=== PATIENT | female | born 1990 | race Caucasian/White ===

== ENCOUNTER 2023-03-03 21:21 | Outpatient (REF) | payer OTHER, SELFPAY ==
[2023-03-09 10:12] LABS: Age Gdln ACOG Testing Note (.); HPV Aptima Negative (Negative); IGP, Aptima HPV, rfx 16/18,45 Note (.)
== END 2023-03-03 21:22 | disposition home or self-care (01) ==
LOC: LAB 21:21
PROVIDERS: Visit Provider Obstetrics & Gynecology
DX: Z12.4 Encounter for screening for malignant neoplasm of cervix (principal)
CPT/HCPCS: 87624; G0145

== ENCOUNTER 2024-03-08 19:53 | Outpatient (REF) | payer OTHER, SELFPAY | END 2024-03-08 19:54 | disposition home or self-care (01) | LOC: LAB 19:53 | PROVIDERS: Visit Provider Obstetrics & Gynecology | DX: Z01.419 Encounter for gynecological examination (general) (routine) without abnormal findings (principal) | CPT/HCPCS: 87624; 88175 ==

== ENCOUNTER 2024-03-11 11:44 | Outpatient (OUT) | payer OTHER, SELFPAY ==
--- OUTSIDE RECORDS SUMMARY | 2024-03-11 11:46 | XMS_ITS | CCD ---
Demographics Address [address] [place] [id number] Preferred Language en Marital Status Single Spiritism Affiliation Unknown Race White Ethnic Group Not or Lati no Author Organization [facility] Care Team Providers Care Hardware Sales Assistant Name Role Phone HOUSE, DR AMAYA Admitting Unavailable HOUSE, DR AMAYA Referring Unavailable HOUSE, DR AMAYA Attending Unavailable HOUSE, DR AMAYA Consulting Unavailable HOUSE, DR AMAYA Primary Care Unavailable HOUSE, DR AMAYA Admitting Unavailable HOUSE, DR AMAYA Attending Unavailable HOUSE, DR AMAYA Primary Care Unavailable HOUSE, DR AMAYA Admitting Unavailable HOUSE, DR AMAYA Attending Unavailable HOUSE, DR AMAYA Consulting Unavailable HOUSE, DR AMAYA Primary Care Unavailable HOUSE, DR AMAYA Primary Care Unavailable KARASIK, DR KEENE Attending Unavailable KARASIK, DR KEENE Consulting Unavailable KARASIK, DR KEENE Admitting Unavailable HOUSE, DR AMAYA Primary Care Unavailable SAMSA, JASBIR Attending Unavailable SAMSA, JASBIR Admitting Unavailable SAMSA, JASBIR Consulting Unavailable NEFCY, GONZALO Consulting Unavailable MD Jerry Imchristal Attending Provider House, DO Amaya Primary Care Provider [phone] House, Jose Luis Primary Care Unavailable Asaad, Bailee Attending Unavailable Asaad, Bailee Admitting Unavailable HOUSE, JOSE LUIS Castro Primary Care Unavailable HOUSE, DO JOSE LUIS Castro Attending Unavailable HOUSE, JOSE LUIS Castro Primary Care Unavailable HOUSE, JOSE LUIS P Primary Care Unavailable HOUSE, DO AMAYA P Attending Unavailable HOUSE, JOSE LUIS Castro Primary Care Unavailable HOUSE, DO JOSE LUIS Castro Attending Unavailable HOUSE, JOSE LUIS Castro Primary Care Unavailable Niall DAVE, Neftali Serrato Attending Unavailable JJ, MANUELITO Cohen Attending Unavailable NICOLASA HDZ Attending Unavailable Medications Current Medications Medication Drug Class(es) Dates Sig (Normalized) Sig (Original) Norethindrone-Ethin Estradiol (1 source) Estrogen Start: 05-18-2023 take 0.96352392939477489 ug by mouth once daily Norethindrone-Ethi n Estradiol (Alyacen (28)) 1-35 mg-mcg tablet Active 1 TAB PO Daily May 18, 2023 12:00am Problems Active Problems Problem Classification Problem Date Documented Date Episodic/Chronic Chronic obstructive pulmonary disease and bronchiectasis (5 sources) Chronic obstructive pulmonary disease, unspecified; Translations: [COPD UNSPECIFIED] Onset: 01-05-2022 Chronic Noninfectious gastroenteritis (1 source) Noninfective gastroenteritis and colitis, unspecified; Translations: [Noninfective gastroenteritis and colitis, unspecified] Onset: 05-18-2023 Episodic Other lower respiratory disease (5 sources) Shortness of breath; Translations: [SHORTNESS OF BREATH] Onset: 01-07-2022 Episodic Other lower respiratory disease (1 source) Other forms of dyspnea; Translations: [OTHER FORMS OF DYSPNEA] Onset: 02-09-2022 Episodic Other screening for suspected conditions (not mental disorders or infectious disease) (4 sources) Abnormal findings on diagnostic imaging of other specified body structures; Translations: [ABNORML FIND DX IMG OTH BODY STRUC] Onset: 04-16-2022 Chronic Other screening for suspected conditions (not mental disorders or infectious disease) (4 sources) Encounter for screening for malignant neoplasm of cervix; Translations: [ENC SCREENING MALIG NEOPLASM CERV] Onset: 02-25-2022 Episodic Pneumonia (except that caused by tuberculosis or sexually transmitted disease) (1 source) Pneumonia, unspecified organism; Translations: [PNEUMONIA UNSPECIFIED ORGANISM] Onset: 04-20-2022 Episodic Past or Other Problems Problem Classification Problem Date Documented Da te Episodic/Chronic Other lower respiratory disease (1 source) Dyspnea, unspecified; Translations: [DYSPNEA UNSPECIFIED] Onset: 01-07-2022 Episodic Results Test Name Value Interpretation Reference Range Facility Progress Note - Nurseandrey - Progress Note - Nurse Patient presents in office for weight check to continue phentermine medication. Patient had first fill on 09/02/2023 with initial weight on 80.01kg / 176.39#. Patient returned in office on 09/30/2023 for weight check with a weight loss, 77.11 kg / 169.64# and second month of phentermine was filled on 10/02/2023. Patient did not return for the third month for phentermine/weight check until today. Patient weighed in today at 78.1kg / 171.82# - vitals were taken resulting at 132/82 -left arm , HR 89 , O2 96%. She would like to restart phentermine after full 6 months of being of medication with approval from Dr Currie. [Electronically Signed on: 03/08/2024 11:31 EDT] Yuki Sykes [Verified on: 03/08/2024 11:31 EDT] Yuki Sykes [facility] Outside Recordson 07-06-2023 Outside Records [id number] [facility] Coding Summaryon 06-29-2023 Coding Summary HTMLBase 64 UaoyqtfaDPi9aBd+PGhlYWQ +MT4SFUBaL05xoODevE4wV2 NMTElOSywgQVBQTElOSyIgb iIrDU5baUIiEZTu IC8+TR9pGHByVdqnfIVik8S 1tYJ6T31cca5jPTlzlOL9YM WdMxMecrjhr1kdvQd9WPguP mluOyBt XAEaeC15UVZ8wS92We36rDR kxGMzc0vlmGk3OzFqYZLoDU F8fNftCSnjn7BzCODjJ21fg ILju6W3 JZOucZkfdZDzXqSlqGX0oC5 gDWmldtoct8jxrlhuHqy7qa 53mTCbe5E5tNJ3U4XahfU6H GJvbGQg PldroSITtA3klxgsz7cjopa pBfEaLFHyEGw4EWn2ISQdhJ fkVhLzOG42RJV3DZPrmvPcJ 2FsLWFs qGupVoK0f6Z7Jo4HE4HRKgw bC9ULNQHXSBmupUA+PC90cj 51U5RcVeatUjn2WFAsHWD1q SK1xR5a DTSpKYzon8M4sVI9V1GcszQ psw1xe0ejFIGnSNtpL53sgR Uew8L7BGJkaQD9QMXcxUpjR iBzaG93 Oyc+QHQpuZkox7SoNcvtt3a ht2rupHj0OjavFRJazqBpwU fqASZ8k9XmOu2mSOCsfIU6z OK8fV5t UtRmWiR0XJofK421XyYbaRK yCppkH71jR0MsuVD+PHRyPj v1HKQgwSccSG2wV1TeDPKko mctbGVm tAilQQ8jNVTgkvixNOUbbM2 kBQArP9o3KyGzFsL4ENqjO5 YcLUYhdydmTd53eI2tZsVtD pG7VFba D5AdssF8COYpwCVmOWypYFH 2Y52ei9I3ILZaJFYiBNI9kC A2fQ2hgFrmgtcltBBliLdwq mVydGlj PSgrNXrtP187KEJkqClmGdX vZGluZyBEYXRlOiAgMDEvMD IvMjAyNDwvdGQ+OBZkXNK3w WxlPSAn hHWiSZozOs5kkZrgcBsvGJ3 pYQNkcdjeQGZxqW7tUMPbcC QoqEinGH8mPBHarmnjl821A iAxMHB0 UQKusGRwY5OzrS8vBwWoGTB oBPCoS6BdzRKvWZpqV163MV dcTvS8MKDivvSpQ1GvQBZim WduOiB0 c4D9Cy7On4ZkvbigA8UliXB cHnDyAoijSDo5I7AcHrcqrX I+MG59OEOqAS47JRz0GQN8a WxlPSdi OIFsJ9IcrC9vFjBnVRRcFMW kOyc+PHRhYmxlIHdpZHRoPS gyIMPmOlUqxHqxOZ4cCs2uZ GVyLWNv bXgooUOeCyCxv5brSVUbHXg wLT4ldBlqV0GifVR9LMCgk0 s6Qv11V93wH1VrwTC+PGNvb RW0iAT0 lL2vJdZzUjR7OSskN688ByD rgMVbJmdzv3wvy8xfrFw5Lo Q5RASxptIwdBzoHYD0y6XbR m68R97e IHdpZHRoPSIxNSUiIHZhbGl xfm0zvV8kPf1+DYQzpQO1rO J8mX4rNsTkSpV5THcgD236Q nRvcCIv Vhekg1cay5dowZd7GlLsTYI rizBwmMfcKMN3u1FsOu29N7 DljAfge8DdAne6fr67sGYfm 3S6fTL1 J3ReEMWoziggzHNbwGtkSJ0 vKIDitbsbGYPclV8jFGTnO7 j0VsJiZvO2HBoeN1YmjnT2X GJvbGQg IOBgdCRMdO6puscii7ytskp qJoXcNXVhGOx3MCd6OBCjsE ysYeDsVDS0CvN1BZU0kWIsg A7yvHhq hwtgeL7yRiy+YRT5xUWmsCG HQE2nZhviqCX+SASoZEM7nA ziXMbaGCCkbJ1eVGSwV1r1X iAwLjA1 LBpyD0BrjoA1AZRhuVWsFKU amJCTnG4prhwqf2itesayTe BfNQEuYMb9LFg6EGVejEepI iBsZWZ0 YsA1JUF0xXQomY9qyTojcoh dtT5vGin+HdpzqRjfXCE8GP z8T1JjRrf3ATGziPphUU3az GFkZGlu Mz3noSctdKsiZM4xMQIyeor yn708HgDlu3uyNYQejHCvJR itWJS4M69pi0B1YKFtAPAnW OV4rBG0 kF5xaGuoucqcuRLpvXdfzhU yyImcAIxyVWeaY185ITWztN ucMyYzCDk6Q0ApLtu9MYDey UrmWX0i aELdGDsgZf3qjKfodBkkQH2 pKKMvxozjh117XvEia9grQA TmkFPfQLurHCX3D96ux9P9S CMwMDAw HDV6dTT0zW1wsLibkrhakML mdDsgdmVydGljYWwtYWxpZ2 05HBAwcDnxQhPwkIe5K4YlB um5ZUOd xGzgEN5axUTgZTckVk6jfHc ciOweOA5yLENwujsyj811Vc Tqp8jbBTKxpIPcJRazKEY0Z 76mx3D7 BMYaBROtMJK5gUA1pC2ctMs nbjogbGVmdDsgdmVydGljYW zlRZsyA570WTPqzGqdPgDsn GllbnQg EDcaSQa2L0YhIlywmJL+PC9 0YSGnIB15rLGkuVJte1kyeK q0QlNtRJFyDOC4wDqtLDexk 3JkZXIt S23scKRzm3B9IFCzyAypuKB uGgJuyTL0qX2xLDxtvchnf2 aujlyvCkqqi9waxu01jT62Q 29sIHdp ZHRoPSIzMCUiIHZhbGlnbj0 ttA7lBf3+CRDxhFP6pUQ8aO 7wIZHvHvT1HRjwB510PjThb CIvPjxj p1wdb1adnMj5HaF3UAIbvjC wvBteDUC8n4EuUm29V73wON dpZHRoPSIyMCUiIHZhbGlnb t8raV6l Ii8+EGPqeRU7fTM3cZ6hMuC xWyQ0MKabI474UmNcuEDoZn goY58gX8XdyIZ+SQMfWfw2W CBzdHls WA6qqWWtHYofSm1iTJG7ZvB wWhLbOKibE9ZwHLQvsxrann ozcKT9OJTmJFLovU01Kk0yw DogMTBw gHWVcZ4sboirr4rjpzwjIgZ xIKKiEDm9MXw8TLYptToiKd AbYSL8UwX0KUZ6lARyaR3aq Glnbjog eI5tI2AoBSSlnqbsHp84oF8 aAhWtTaP4EJasAnu+SFVHSE VTLCBLQVlMRUlHSCBNQVJJR TwvdGQ+ RYTdWKG7iNqpDYlaXAWyhM7 sGINpE0m0EqNkDwZ1FQjhU8 JzZWJhkfyhKc35oO5wHfMhY aV3WTnz Z1DpaeP7GTQnuXMaEGigJML 0E92ce6W4RLSaMSCsVXZ6eW F2uT8ohBgcznojwVJjkDlvu mVydGlj FJjyDCwkE526PJXzyBelYiW 1HaD4BuV0QMA2B8KbQjl2EQ LhmRirZT2owIBaFKyxOa4ym WdodDog ST4rEWRcqspjNZFixH2pOKF ppSGtxKffWG1lGZAmugkpq4 54PcTfINL2KETeqMZlI6Hpn G5rKnJh RLQhTQWsU8GwqNNzJKprX11 2POojSnV6OAHuzcUnF1EfWU MmrBniMhR6w7J1Kj9lFEZWJ WFyczwv dGQ+MVNcEUY7vSojFOoiCGN loV6rTYUtJ2l6TxIaSzT4ST fjI4YmIMVzcsesEv68dU9aF iAwLjA1 UQqbH8HwqrF1YJTngSBzCAu eMYO1E55tm1T1SXOiOXWdWP L1cWU3rK2evNlcrtprwMWuo DsgdmVy oWgeJQdxKUqrK460KSGawSb nPkZFTUFMRTwvdGQ+PHRkIH S2bZuqCYuiXFLwwN4lSVJeO 8n6FhPs HrS1EYrmN9PzWSAqjuzqDg5 5iG1mKrRoStP8GGemH0Nijz T7LYBxbPHdWUijAGR0L88zw 6X7ZHHx GSTyTSY2pVS2lN7dvCqjoou gbGVmdDsgdmVydGljYWwtYW luP326RFNhqGoyBo7CMZ72T N01L2Ax PjwvdGFibGU+PHRhYmxlIHd pZHRoPScxMDAlJyBzdHlsZT 6jNb5nQSBkHLJolTzcrWOsR sXip2xv SRCjOYyoKK0ipXctG7HmeYV 2ERDuq9r5Yz75R68lT9UgyH A+OJYwiIJ5lNT6aV2mArXmG jD8OFmm O245LxXrjYCrLedmv4vcf9v auTh2AjNvIQQgbfRfsBffAB U7o3RkEs18S40yEOeiHFIrP SIyMCUi CCDpdYzmbp7xvS3zAn9+PGN ehGG4hDU7dR8vHrZtXaN0OT grZ275JyVlxJXmCjeqV62sN 3JvdXA+ LBPgQya0UZUclWhhIF4lvJW eXYprJv5pIET3SwStRnKmNE axP6DvJHTxzvlcbgjzeDV7E DAuMDUw hT25Li7wmAmlKl4aZQAbZSO 5ADMdjWKjG2WazB1tMmZjBD ZeIVZrO4IlhPSbEAkhW302J GxlZnQ7 HFEpsuBxF4MjTXNirLaxPbB 3u4G2Rh4FnFkogGZiLJ2oSy MsTXu5X6IyAna7KUKucFaoV Q2spXNc WDbhHw1koCbbcFopXH2gTUD jwaina707ZwRkq0apFQRclZ OfMYkhFBF6Q81tj5X4BXHpE DAwMDA7 dEK1uI4kpVhxywejvFGknZj jnfEaaDnpDYncNPhfD610DR EkhKakJfJOTsc5M9CqGrh7A CBzdHls IF3cxXCuFIbmUd3jfHproAm yCX6rYBPvkhvjc073CaWtm5 slHPQodLMaJFuzZAF9P15qj 5C0VMPg RVWmXXC8vIC8iR4fhDjpjkm gbGVmdDsgdmVydGljYWwtYW qdS281IWJpjUysVw2BAtm1M 5XaKfa5 MACdwXwoKC2hfWPfFWaaIc6 tgAmuqFxrBS4oMIXswnqqs9 12OiKcr8dpEZJspUSdCDpgA YE4Z88g a9O1IJJmNEOhIQS4aML7fY4 hbGlnbjogbGVmdDsgdmVydG jeLIzqIXfcU129UBPbgBbtL lBheWVy OjwvdGQ+XF64fk46U2NmBtq gUbc7GQZoVBF6rGN5wS9iZL UfEQigv8K8nZE1Y4LvoiHqf g7yp5nk YXB (more content not included)... [facility] HCG ( test) IAaguila d Ql (U)Ordered By: Bailee Edwards on 05-18-2023 HCG ( test) Ql (U) Negative [facility] HCG,Urineon 05-18-2023 Beta HCG ( test) Ql (U) Negative Normal [facility] Comment on above: Result Comment: PERF ORMED BY: [place] [address] PATHOLOGIST DATA RECOVERY PLANNER MANJEET NOLAN M.D. Performed By: #### U HCG #### [address] Deni 05-18-2023 L --- Specimen: [id number] Received: 05/18/23 Status: BETTY Jefe Num: [id number] Spec Type: Surgical Subm Dr: Bailee Edwards MD Tissues: A Colon Biopsy (SIGMOID POLYP) Procedures: HE/David Gross/Tish L4 Age/ Patient Sex Location Account Attending Physician Mauro Damon 32/ [id number] Bailee Edwards MD SPEC NUM: [id number] RECD: 05/18/23 STATUS: BETTY JEFE NUM: [id number] SHY: 05/18/23- SUBM DR: Bailee Edwards MD ENTERED: 05/18/23 YOHAN PRADO: SPEC TYPE: Surgical DEPT: S ORDERED: HE/2, Gross/Micro L4 ORDERED: /, Gross/Micro L4 Pathological Diagnosis Sigmoid polyp biopsy: - Serrated hyperplastic polyp in all fragments with minor features of sessile serrated polyp also suggested Clinical Information History of colitis Gross Description The specimen is received in formalin labeled with the patient's name designated sigmoid polyp and consists of three red-pink, polypoid, soft tissue fragments aggregating to 0.8 x 0.6 x 0.3 cm which are submitted in toto in a single cassette labeled A1. Microscopic Description Microscopic examinations are performed CPT Codes 69727 Specimen: [id number] Received: 05/18/23 Status: BETTY [place] Num: [id number] Spec Type: Surgical Subm Dr: Bailee Edwards MD Tissues: A Colon Biopsy (SIGMOID POLYP) Procedures: AUDREY/David, Gross/Micro L4 Patient: Mauro Damon [id number] (Continued) Signed (signature on file) Chin-Ras John MD 05/20/23 [address] [facility] Patient Provided Health Data on 03-25-2023 Patient Provided Health Data [id number] [facility] Coding Summaryon 03-20-2023 Coding Summary HTMLBase 64 NeigcpuhNTq0pWg+PGhlYWQ +RF0JUECgK23ylNPoqO7xH4 NMTElOSywgQVBQTElOSyIgb kByLS9klEAfJGWb IC8+LF7dXDCaTdxliOVsg1C 4nAE6Z17brh5oMWchxUE0YC FgZdXnwoaos7rhdFo1ZQqnG mluOyBt SBYnhD83EOY4mB78Ir81cFJ pnITct7pysOy3CyEqCAPbMK S6pFwsHIggj5SlGJIyI22es ZGnv1U4 WFUbpEgckUOoMnUqgBB1oQ2 aXLdgpewyz9naudazHfe5ks 45aEIqr9F4uOK7A2WkzrN0U GJvbGQg WucntUSGyH8wwlwej1emjdj sRcQaPZQuTDz6YZk7YOTzgL syNlHwMQ30GFF3RHBebnUsY 2FsLWFs yYomJsJ6k1C7Sf7SJ0KRLhy qU9ZVFSTSCArthAY+PC90cj 19K9UjQlvqTob1IIWrQQM9x PA2sB0j IGKfHCriq7R6gOV6I7UzxsA yke7hf1hrMJUnZUzdD46lhE Bhu4X3JNOroPA9GLMdjNbbL iBzaG93 Oyc+XGFxcOlwy7TxTrubn1j qy8sedWv8SjdfYSCamuGquD aiSOP7r8KtEv8iNSLisZE5i AN6mG5f RoXjRrJ4VKjpQ286VdGwqPX sWzghF45xZ2NekYU+PHRyPj t1IXLffVfzGA3vF7LbRSHwy mctbGVm iDnySC2wKZAozowcORXatD8 hZHJyT2h7TjQoKnP9PYgmZ4 RwWXHphgxqGs18vN1jCmDqT vB8KYou T4ZijlP4LYEosMKkQEhrKJZ 9N69dp0L6ZEVpLMNeOEW4fP O9pQ8whXdylwnlsTIhfDrku mVydGlj ISksMKnfJ291RLJrkZlqKzC vZGluZyBEYXRlOiAgMDkvMj MvMjAyMzwvdGQ+HLAdRQK3s WxlPSAn tUZvOKlyJe1jlByruApgPP6 kGZPsnspyWEDraR7eYQWfcL QrxJqbOJ9cMMNqsmzjg407Q iAxMHB0 OOXpcWCyU8UwoD8kCeFrMPI iCOSdV0CssSWkOTmnW517RJ yqIbU8ETXlaiHsO4BaYIDhi WduOiB0 o9Z3Oh6Pu3BcdkhhU8AgmIS bPcMxRblqDMh6M3JjWdcirH I+AA60HINzHP80KUn6VXK5f WxlPSdi ENIhX0XjpI9aNnFvCIGbSZQ kOyc+PHRhYmxlIHdpZHRoPS lyOIXiLyJhuHgaJU9wTx1nW GVyLWNv pQyqwVQsRsHet5bgCZNbOMa dGH3kbLotD4VxgCR3IHLcz4 o7Eu16I30rB4HxnCU+PGNvb WA5kSV1 iO0eByQaUvY3CYozZ681YvV txIAiChzoh8dve2jsmYj7Pn N8NEVealJqgEteJIZ9x2MnC p33Y10s IHdpZHRoPSIxNSUiIHZhbGl brk5gkT4rCt0+EDOfmOR4bT F0iG5hZfWuDwV6YCwvI110Q nRvcCIv Wftdy0jbi1npuGr8BmDqVGP sclNubKvlABN7y2UnCj27Z3 RqyMvvo2YxTww4le25yXKep 1V4cON4 X6IgUZEhdffewKMkrIgsUY5 yVGTfdvkgAQWipX2yFHVuB1 x9BkKxHmU8ELzyT0QlkuD4J GJvbGQg VDSoiNCEvC4oilpez2sdvfo vXiFgOLLePSa8JSt7SEQwwW nvTbWcGMV9ViI6AQX1lRHch L0wtMlz lpmizB1uQck+DZA0gZDsbRH WEU0oEolkyFJ+KXKnCUO9nB zsRMysICVgsH2sYEGyS9e8Q iAwLjA1 SSmfD6WqkwD9LIZpjOUgYIM ceDRDyC7czreri1leeuwkDm BlWJYbEVv1GXp6WEYnjYagO iBsZWZ0 ZrE9EVU3bAHhfD4wqFwemjm isS7dIix+LfzfeRumBNS6MB x2Z7ZhIjh5NNBxwYfeJA5yy GFkZGlu Cg6ffZtjiOguLD8pXAOfvro fv655UdIzv5prBTBxfLIoAI fbAPY5J56vg5Q2UXAaSEImR ZC9uRS1 eZ0yhGtkkgwbiTFlrLftypP cpGreEHizBLrgZ303UGQjrD yzOpSiNPz7D6AfTkk8UKNsk KxvDG8s xUIzVWscBj6snPoacGdlDR8 mVBHmholla832ZkUoi7udDJ QhsMBeMKevARM1R14zf6H5K CMwMDAw CWZ6pMW1uM6bbYaugxqorWL mdDsgdmVydGljYWwtYWxpZ2 22JZUnwShiBsViiPx9I1XxQ gz6FFZg bXtfZK9juUPmWMvgAn6xeRm nzIezKI7aYPTzogorc806Tz Gha4cfOMHmiJBvSGlyIUJ4O 18na0R8 UYTePSCeFEV4pKK6wX8ydDh nbjogbGVmdDsgdmVydGljYW jqXOalA094HPJikRagDsNaw GllbnQg VQclPMd6K1OaGbstmKB+PC9 3IFXcAQ04cIAbsDQfi6fihG l5VgMgWATkVNF2rLvhCFtia 3JkZXIt J07znRVnl4J8NWPouEzjgHY eUiFteXR6lT7oMQhuqdfqo8 liltshOksrk8qjjr61cM13R 29sIHdp ZHRoPSIzMCUiIHZhbGlnbj0 oaR7hHz6+XEUswCW6zVD6sW 5eUNYsYtU0BZgwS381FkPrg CIvPjxj r7srk3bypOq4QuQ5ZHExipM llCdcQCR1t8AcGe24S31dDR dpZHRoPSIyMCUiIHZhbGlnb d1scW7p Ii8+DZAqmKG1hZV1hS2eDiR dZcC0LFbkR476EtHczHGsZm fuV57sZ1JawOY+UZPkKqw8V CBzdHls BJ3rxFGhQCnlTk4oFAT0YzV dQlAgAPaeD7TdTWYbfcbfpx udeMH8FQZaCNQcrN77Vo7lc DogMTBw pDLHbD4pmtmag2siokttRwK qPNSvWMb6GBu6AQGnoNojCj CdXQE5JfV8AQN0rNSvpJ2df Glnbjog iL1vV1AfYUXpwcprJj87kH1 tMhYsQgU2CBkrGhr+SFVHSE VTLCBLQVlMRUlHSCBNQVJJR TwvdGQ+ TJWdUND1rJxuFBcjWNUfkM4 pVVVcR4v1YxGwTnV8FNttQ7 ApWVDkfsvvEc51oH2fRiRxK gV9HGon P8PiknV6PHOdmTFkEHutAWW 4N56bw4C9UUFqNODvFSY8xT B7rX9jmXyqgsokhQLqlWrug mVydGlj KPhlBHkcD979LXWrhCkmWhD 9JoP1JmR8TZC6D1ObLwt3XB SzjBreOQ0zwLAtNLxiZx5bp WdodDog IC5fBFGywkhzFMFqaW2dRAH fwEKsuCrxAR2qDFWdtotxm0 90LrElBNV9XQRmpXYqB9Nox X6pOxPx AHToHPQsN2TeaBDpDNpoR76 8LKdhIcX6BDPordAfU8JnRN VzqBbpFuH5z9A2Fs3bWSYAE WFyczwv dGQ+PXHeXPN8zPulOEvoQTN vaH9iLXAdJ6v6EwLzHzY9FU mxE1LgGHOcbkwvCk32aR9oL iAwLjA1 KMqvT2GhucX9KOOyjBDaYAq gGQL3G56wk0J3SDWvWRQnCR Y3uFU8eJ7dfXntuidovQHny DsgdmVy eMuoVCmiRNvpR912UHFrfEy nPkZFTUFMRTwvdGQ+PHRkIH E4jXdkUOwtUBMafL4vTVAkD 7q1OpGz FiD2LPjgW7HbVYQadxgfJr3 3bB7jGdTsXgV1AXzfC5Fflj A4FGVnqCUiQRybJIA9U18cg 1A3OHRd IRQlSMK4xGD3dJ1dnIjfrte gbGVmdDsgdmVydGljYWwtYW rsB317LFZklOyrJlLjKAShU U2kmYle dGQ+KR99vz80J5IsDtclLmc 5FZPcVVK7gXH7pW8bHLOxNE gdg0V8bDJ5L8UpfqTcri0yy 2xsYXBz ASdkU26ilFPiu5D6HDLkqYN 4SZYsvYhwJzYzdH11Esd+PG XxzUvgg4VwNxpcf8yds0ahn Io8GqZh KUMnsgEwhCzxHZS8q5XwUm1 2Y19cSKpbXBUwQJSxWZUnHR ZtjPecvg8flU8xEj0+PGNvb UA8wVZ9 eL3hUuDhNmS7UClgE774VkH loMDlXpfud0sjf3cziSe6Uz LzFUEcfiZkmBgtMEJ7m9ViA v70W2Vc gGlnl9WwEht6tu68bTNsx3G 0iLQ5C0KcQAHktyiejONfrQ azVD6hNQWxqtfiXMIftA0hJ SWqE1k1 AcNnXtO7LWwiK3NzbnH2IIA jiSUqLIRzbXKDtQ2qmkaeq6 nohhayZwEeJALbIUx3BUn3Y WFsaWdu OrLdWTF1KgW2DBW3zJHdlJ1 anLyeplkdiB6nGfr+UGh5c2 vprKZkKG0haQE8AK54NG50i BJuf0P3 fMQ4S4PuSLVcymshgguslIL 4SLInCIWetN97Kg9lwUlrSe 2hTYReJUK7FITeyPJdG2Mlp P3gBcPr OGDpRLPaM2AuyVNdIMbhO48 8DYutGbI7KEZomyRuX0DtFD YzaVvoDeH8c0E0Jn7TSD57Z R86KB94 qVDtp7A5uHI1X5WqDIAlkvp rctibjHK0LSJcKGHjhQ96Sa 7kiJadUe6tTCIkGUA2DYIri WWoU1Kq eA8nFyZcJIFdKVGlH2IawYB sWKscP973WVrwFwW8TWAspe DpO3QvLTHqcMofJsE1o9C8X n6ENp16 UH70UK91xTByh3K5tNN7Q0D sNURzpzpmzgzzkBV3VZXgIH GtlJ57Kd0ijYglCk7nENSnX LA0LJKj gDFgJ6HafL1fNlTeLRVhUVY gN7VbjGAaDDvdM712HVhnFj C9MTYfixSgJ0YrXFJufUrrW aA0g8G9 Xx1EAUygdzb9B5ZtOfuwrQW +BU84QMLkZL13yMKjyTRfd4 ijgFt3OcKqPKIsRJE9rJhyW Wwxm9Dz ZXI (more content not included)... [facility] Coding Summary HTMLBase 64 PtbidxmrSRw9tZt+PGhlYWQ +RR2MUQCnV00dbLGbwQ9fQ9 NMTElOSywgQVBQTElOSyIgb zDcKA2rhJUjBGDw IC8+TN2wSCBvPuqqlWNad3T 2uQG3M83kqt7vDIakqXP1AE AqSiSaruvlx9mbxIm3TPgbR mluOyBt XKDunK42KAD8sY75Na51fEK evCOxv9shmDi4BsPtASTvNH N5fSgfOMroy2XeDFAjT30rb NWqi5U9 PGWnyJrzjQYsXyBagYR4yM8 uTCvcqwaau8zhapibMnt2za 68gPIot2B0aTF6S6DgmbV0N GJvbGQg QhucdJIOiY0lodxoo7cgqdm nDoWrJBRzPNr0UMp3OEAkrE qcZnRuWZ48HSD3WKCfwgBgM 2FsLWFs wFbcSkQ1n7R4Vw7OS6LSCek jD6VRNBSMRFdyzCX+PC90cj 38R3HhXzzyBwu9VZVeKYW5b TA2vT6t KHPoLDpyl4S5qCK2N3LcddI jgr2qf9ekVXDnHEowG58xvT Dyn3Y0DBOjgAU7UEKhfZbvR iBzaG93 Oyc+BPThyEeku2LjXqmsj6x jd5gfxCi4AukxXWCjufNmlA suGGM1v8FlEl6fJQBznJE5k TI5qS8t XbGrRgA4DIzxT977AfTjtTP hYftoA79qA9PnzIB+PHRyPj l0TRGozIovMG3fH0VfCQNxh mctbGVm pCjvXM7aWTIwcmoxRZUpnN7 zECZoU2t5RwUzUdF4MMsqB8 PqNGKuhbhlNa62aC1hBbBoZ qY7IJyz F7TmdhZ9PPNjwAYtXKmoBEC 9X98wl4S3GHRfDRMvWOC0mK D4wN7apAhdkwjvrGKroTufs mVydGlj FLwfHLclF621CQSjlXndIeL vZGluZyBEYXRlOiAgMDkvMj MvMjAyMzwvdGQ+IRDcBWO6e WxlPSAn jSYtZDvaSb4llQmqzNomIU3 oTPSezaxlBLSxaJ5uETMdbT VwsPvfEC4fZMDyxwvrt376X iAxMHB0 SHIgsCHyG0MgtX2gFnZlJCA rBCZlR2AarCNfBBniY740AI blQqL1JBPlzmElV1EgCQWgf WduOiB0 x6E2Yj9Dp1IsiebxO4KdkDI yViPcCmdfNUd3M3RlGyfhxB I+DX80AMVgFC29EHp8RJC8g WxlPSdi NDFxJ2KcuU4vAeIbWSOaBTU kOyc+PHRhYmxlIHdpZHRoPS ivIOUqUnMyqZsrYV5sUv5oV GVyLWNv yVstmVPaIaLol1oeYJLqEGk tQZ2jbMbaY5XxqYE8WHOdb0 m0Qi66Q22uM1VliQQ+PGNvb NW5fTU9 yI4wTbShDsT3PPadD705OjU gxBBdNmrwl1yao9pvuEh4Ac Y9ZGKzdjUiwJvhJXL1u5FeP f68Y80u IHdpZHRoPSIxNSUiIHZhbGl bds4quS9lPf2+KZZksHI6lH D0lH0oExYePxJ7WMcxC462P nRvcCIv Xxgyq6krf5xnpUr2JkEyAVQ vjzIuhYovQFU3o3AnWy10O4 WxaPexr3AxQwh8vo10pZLzy 5R1fPN0 J2UyBFAegkaycFEcjDevDD4 qOVLpfrjaGKDmrI7fRDXmD0 o8FiDzYhH6BInkN6UqywK6U GJvbGQg FUWfcJSDtD7gbtvxn8elzcr wArUvQQMuWYy6ZNd7XDCyjY ptQeFkCIL0QjT7FIG6wRHle Q9ymHhb vyevfA4gXwx+XOE9vAOcrMD JOE9gUnjemBR+SHQyWOT6nR muUZerPDUarI5jJCWiV0a2T iAwLjA1 DLmcB0TwmgI2HZRqkGTfBMH suRNHeN6hahith3mcznpwQt WzNWVpFVg4UQi7XTFvxNneI iBsZWZ0 CuT4OPG3vJPrfE9ulTcamkd ocS0zUlx+CulzxEfjFGN4YL p0Z9RjJmw6MYCmzHbaQW8ko GFkZGlu Rz7xvMklbKizVJ3rWZHitob uy295RzUnf7riGSVdaNSkBR rzSDT9D33ul8R2THHvMPGdX OD6dFF7 oZ2ztNkhqygshIZivFtmtyY btHctQUamKNszU123NDTomC gaTsTuOXt0P6QzFob5PEUko JpwNQ4f aJJvCItiQv7uiWjuyEojOB8 fXOAijfbpm994RoBze3kcMO BrtAAdXSlqQWV9V97bb3B7X CMwMDAw OEQ0oAV0zN1itLtqbdzxvJA mdDsgdmVydGljYWwtYWxpZ2 31USNygMueJoIuvQt2Z5YhF qp8JZGz wTerNW0waDHuIOmaFc1wqWp wrQavMK6zYHTfssgut922Vf Lvk3gyRKRrwTHxRBudNPI1B 84oi0L5 UGOdAHLrVFH8uKJ4wP7tpKf nbjogbGVmdDsgdmVydGljYW wkKOrtO571OUXroGcwKxYea GllbnQg DCdyEPm0A8ZeDqnjdDK+PC9 5YIEbLN92pLFgxIOfj2lukM t2NiMhLIWqQZX0aKyxWMttt 3JkZXIt I08yqARnh0D5LQXywZdfjZV zNnSovVE5nL6uNInyiqdbs2 owqgojSvpro3sxjl81qN98Z 29sIHdp ZHRoPSIzMCUiIHZhbGlnbj0 kdE5bHf5+NIPwmWT8fUC7oK 6jOQDzNzU7KYkuB950RmXyn CIvPjxj k4dcb9wlfTc5DmU6HLItynA lyJhzDOJ1x4NuDu10T03wJG dpZHRoPSIyMCUiIHZhbGlnb k3vzZ2b Ii8+MRPzeUW9oGO6pX3eDiP dMtF0OTmqY132EaCbsYTtBe hyM44iT0NurZA+EPZkUwb5D CBzdHls ZX5hxOTqBCmjIg3lEIX2NnL hRxCwZWuiZ1QjADKdouxlva yjlII0YJCoVJFkeU37Oy1ub DogMTBw hRZNnK4ysqpbc4waonlsRqW lDYCoHMp1KTv9NTAvlKkiWl MnUYV1InS1BEM4yYJkoQ9ja Glnbjog rB2aI2NdVQIpfqsxCo76fW7 sIuWgNiF2VXfaBhn+SFVHSE VTLCBLQVlMRUlHSCBNQVJJR TwvdGQ+ MIWlPLK8oQepMDczLDSzpV2 kSUUuF9h4UsGjYaP7PXvxM0 WcOOUkqowpCx07qM6rPpBiO fD1XIeg J8HdehY4HADxmAMfFQqaFGE 7K01sv1G9LJDwJEBlDWI3yK M2zO5svYqxfmcdzSEklTfpz mVydGlj OBcgIUsyJ711UXKpwJyhVoT 9XdS8SwL1NBQ9K9SrLgy0BQ CilBrqDJ0ohJZtLHkySc7jm WdodDog QN5pQSUvovqhLIKsnB9kHJS vcWMdeWwlXF3wBDQyuxltg0 82OnDhVYE6XVVizKCvH4Msi E7pQnOb DAEtSLYoD3LhpGUiNWbuL58 7ZYmxCfH0GGObwaLoX6UiWZ EgxPahGgM1x0T7Km1dHTMCR WFyczwv dGQ+OSCeBRW3bScnDIrtBPN tgR9pFCMiF3z0UyTgPmZ6LN jhK5FsQKWinwleAj82wC9mM iAwLjA1 NSimE6WasiA2XDIfbKSlNTr oTAK6T96ag0T8YBLxKNTuLU W1vMJ1bR9bvBionudomPZkr DsgdmVy kEgmYDiiCTkkC670LGElhTd nPkZFTUFMRTwvdGQ+PHRkIH Z9kYuyONemFQXphV6kRUTqZ 3u8WqWc DzY5OGfpZ5XzUVQawhywDc4 6jL1rVpOtKlT0JIylR0Jetu J1XDWggLPpXSyuNIV3X65qn 2Q5BKWl HFNhLTT6bIX8sU9mxFhdirp gbGVmdDsgdmVydGljYWwtYW tcP296BTXlrBmgSnRwKCQlZ L8znAfm dGQ+IH25zf30G9GtRedoGtu 2QXIyLWC9fTE3dA4kGKKaLJ wht5M0wNL1S2UannYdeu7jr 2xsYXBz JRrbY52rjCBxs3H2WUGphPQ 6MEXzyXtyJhCvnU85Yar+PG MuhOvrm0ZdVfgew6cmn4mgk Fc2PdQn VYBvstKbbNltWEN0e2ViMz8 6C83tXEprJUBsNMWiRJEeYE UxgTbnpw9wqQ8rNv0+PGNvb YF9cQB3 qM0hVrOlOsH0XTawM481ArD xqMNdOiusw3duy9yvpHa9Iv AcXHHiupVzhZxfDOU2m0EbN y65T8Pz wNdfc6GfMoz3bs03vYAsj1L 1vAI6X6TzWMBrkcebhPVfxC cvMZ8nXUPtslnsOHYhmB6lQ REoH7a0 CqSlRaS2MEknV4CkotY4XAR obLRxNBLnfTBDvH2iezokl4 ipeviuBjNfZNCjFPl9PIg6Y WFsaWdu AhWdEBK2GuT8BDL3nURxiC2 iiYhrdvfmsZ6pZrh+UGh5c2 pwlDAuEY8yuFN0TR56YB72v JHhd5L6 mCE8N8ZyKVNomsivojhfaAO 1WYGhEGWasE48Ab5ujXrwRg 7yFNAxBFG5DHBtvAPmI3Ebt K8nJrVr BRRaKPSfZ5VgxNMnGDqqS17 8IUoxKzK3QGEvfkGnC7MlVF WidYvwMuB1e5T3Pe0IKV45V Q60WJ85 yUOlt7Z5hOJ4F7HhVCRozsi zbfsmgZG3UCAhHJAolZ15Jg 3tmKohCo9zITCzHGT4QNCab ODbB1Cf pU6bLoSgZVIkZDSaW0QznDM cKAzpX643FPvbEtV9EDRnuk SeG7AzUZPsaTekDlL3t9S5M s6DLu02 RP78NR40hRQcn9K7tBB1F4B gXGIyjabeyufxtMM0NFTgZN PurZ03Kt8msPknLd4yUTPcZ KR2ZYLh rHTdJ3FdeT9cQzEfWSLxTNJ oN3ZvnOAmIDccZ982HWueHk O1GNFavfLtR1WuJAXxaKqbY qX1h7E3 Ez8DJDzcdzc3R4QtWuvseEG +TA43PISzEZ88oGCitCQvn6 cshMe0WdFwTDKbWFN9wNryX Udva3Cs ZXI (more content not included)... Normal [facility] IMMUNOGLOBULINS IGA/IGM/IGG/ IGE QUANTITAon 04-24-2022 Immunoglobulin A, Qn, Serum 109 mg/dL Normal 87-352 [facility] Comment on above: Result Comment: Perf ormed at: CB Performed By: #### I MMUNGF #### [facility] [address] [place] [address] Dr. Nichelle John Immunoglobulin E, Total 37 IU/mL Normal 6-495 [facility] Comment on above: Result Comment: Perf ormed at: BN Performed By: #### I MMUNGF #### [facility] [address] [place] [address] Dr. Nichelle John Immunoglobulin G, Qn, Serum 499 mg/dL Critically low [id number] [facility] Comment on above: Result Comment: Perf ormed at: CB Performed By: #### I MMUNGF #### [facility] [address] [place] [address] Dr. Nichelle John Immunoglobulin M, Qn, Serum 54 mg/dL Normal 26-217 [facility] Comment on above: Result Comment: Perf ormed at: CB Performed By: #### I MMUNGF #### [facility] [address] [place] [address] Dr. Nichelle John CBC AUTO DIFFon 04-16-2022 BASO # 0.1 103/ul Normal 0.0-0.1 [facility] Comment on above: Performed By: #### C BC #### [facility] [address] [place] [address] Dr. Nichelle John Basophils/100 WBC (Bld) 0.4 % Normal 0.2-2.0 [facility] Comment on above: Performed By: #### C BC #### [facility] [address] [place] [address] Dr. Nichelle John EO # 0.2 103/ul Normal 0.0-0.7 [facility] Comment on above: Performed By: #### C BC #### [facility] [address] [place] [address] Dr. Nichelle John Eosinophils/100 WBC (Bld) 1.5 % Normal 0.9-7.0 [facility] Comment on above: Performed By: #### C BC #### [facility] [address] [place] [address] Dr. Nichelle John Erythrocyte distribution width (RBC) [Ratio] 12.6 % Normal 11.0-15.0 [facility] Comment on above: Performed By: #### C BC #### [facility] [address] [place] [address] Dr. Nichelle John Hematocrit (Bld) [Volume fraction] 39.4 % Normal 36.0-48.0 [facility] Comment on above: Performed By: #### C BC #### [facility] [address] [place] [address] Dr. Nichelle John Hemoglobin (Bld) [Mass/Vol] 13.2 g/dL Normal 12.0-16.0 [facility] Comment on above: Performed By: #### C BC #### [facility] [address] [place] [address] Dr. Nichelle John IG # 0.05 10e3/ul Critically high 0.00-0.03 [facility] Comment on above: Performed By: #### C BC #### [facility] [address] [place] [address] Dr. Nichelle John IG % 0.4 % Normal 0.0-0.5 [facility] Comment on above: Performed By: #### C BC #### [facility] [address] [place] [address] Dr. Nichelle John LYMPH # 3.0 103/ul Normal 1.2-3.8 [facility] Comment on above: Performed By: #### C BC #### [facility] [address] [place] [address] Dr. Nichelle John Lymphocytes/100 WBC (Bld) 26.0 % Normal 20.5-60.0 [facility] Comment on above: Performed By: #### C BC #### [facility] [address] [place] [address] Dr. Nichelle John MANUAL DIFF REQ NO Normal [facility] Comment on above: Performed By: #### C BC #### [facility] [address] [place] [address] Dr. Nichelle John MCH (RBC) [Entitic mass] 31.4 pg Normal 26.7-34.0 [facility] Comment on above: Performed By: #### C BC #### [facility] [address] [place] [address] Dr. Nichelle John MCHC (RBC) [Mass/Vol] 33.5 g/dL Normal 29.9-35.2 [facility] Comment on above: Performed By: #### C BC #### [facility] [address] [address] [address] Nichelle John MCV (RBC) [Entitic vol] 93.6 fL Normal 81.0-99.0 [facility] Comment on above: Performed By: #### C BC #### [facility] [address] [address] [address] Nichelle John MONO # 0.7 103/ul Normal 0.3-0.8 [facility] Comment on above: Performed By: #### C BC #### [facility] [address] [address] [address] Nichelle John Monocytes/100 WBC (Bld) 6.1 % Normal 1.7-12.0 [facility] Comment on above: Performed By: #### C BC #### [facility] [address] [address] [address] Nichelle John NEUT # 7.5 103/ul Critically high 1.4-6.5 [facility] Comment on above: Performed By: #### C BC #### [facility] [address] [address] [address] Nichelle John Neutrophils/100 WBC (Bld) 65.6 % Normal 43.0-75.0 [facility] Comment on above: Performed By: #### C BC #### [facility] [address] [address] [address] Nichelle John Platelet mean volume (Bld) [Entitic vol] 9.6 fL Normal 9.5-13.5 [facility] Comment on above: Performed By: #### C BC #### [facility] [address] [address] [address] Nichelle John PLT 369 103/ul Normal 150-450 [facility] Comment on above: Performed By: #### C BC #### [facility] [address] [address] [address] Nichelle John RBC 4.21 106/ul Normal 4.20-5.40 [facility] Comment on above: Performed By: #### C BC #### [facility] [address] [address] [address] Nichelle John WBC 11.4 103/ul Critically high 4.0-11.0 [facility] Comment on above: Performed By: #### C BC #### [facility] [id number] Nichelle John XR CHEST 2 Von 04-16-2022 XR CHEST 2 V EXAM: XR CHEST 2 V HISTORY: Abnormal chest x-ray, follow-up study. COMPARISON: 10/23/2021 TECHNIQUE: Upright PA and lateral chest x-ray FINDINGS: The heart is not enlarged and the vasculature is not distended. Patchy opacities are seen at both lung bases, which are unchanged and possibly related to atelectasis or scarring. Similar findings were also seen in the more remote chest x-ray from 04/09/2019. The upper lungs are clear. There is no evidence of an effusion or pneumothorax. The osseous structures are grossly intact. IMPRESSION: Patchy opacities are again seen at both lung bases. These remain unchanged and possibly related to scarring or atelectasis. No acute infiltrate or cardiac decompensation is identified at this time. Electronically authenticated by: GONZALO MEDELLIN Date: 2022-04-16 16:35 Normal [facility] PAP ACOG PANEL 2: 23 to 31on 03-05-2022 . . Normal [facility] Comment on above: Performed By: #### [id number] #### [facility] [address] [place] [address] Dr. Nichelle John Age Gdln ACOG Testing 23- Normal [facility] Comment on above: Performed By: #### 4 [id number] #### [facility] [address] [address] [address] Nichelle John DIAGNOSIS: Comment Normal [facility] Comment on above: Result Comment: NEGA TIVE FOR INTRAEPITHELIAL LESION OR MALIGNANCY. Performed By: #### 4 [id number] #### [facility] [address] [place] [address] Dr. Nichelle John Methodology: Comment Normal [facility] Comment on above: Result Comment: This liquid based ThinPrep(R) pap test was screened with the use of an image guided system. Performed By: #### 4 [id number] #### [facility] [address] [place] [address] Dr. Nichelle John Note: Comment Normal [facility] Comment on above: Result Comment: The Pap smear is a screening test designed to aid in the detection of premalignant and malignant conditions of the uterine cervix. It is not a diagnostic procedure and should not be used as the sole means of detecting cervical cancer. Both false-positive and false-negative reports do occur. . Performed By: #### 4 [id number] #### [facility] [address] [place] [address] Dr. Nichelle John Performed by: Comment Normal [facility] Comment on above: Result Comment: [employer]er (ASCP) Performed By: #### 4 [id number] #### [facility] [address] [place] [address] Dr. Nichelle John Reflex Criteria: Comment Normal [facility] Comment on above: Result Comment: The HPV DNA reflex criteria were not met with this specimen result therefore, no HPV testing was performed. . Performed By: #### 4 [id number] #### [facility] [address] [place] [address] Dr. Nichelle John Specimen adequacy: Comment Normal [facility] Comment on above: Result Comment: Sati sfactory for evaluation. Endocervical and/or squamous metaplastic cells (endocervical component) are present. Performed By: #### 4 [id number] #### [facility] [address] [place] [address] Dr. Nichelle John [id number] DNA ANAL YSISon 01-15-2022 AAT, DNA Analysis Comment Normal [facility] Comment on above: Result Comment: Resu lt: c.1096 G>A (p.[id number]), Z allele - Not detected c.863 A>T (p.Ofb196Iws), S allele - Not detected Not associated with increased risk of developing clinically relevant symptoms of alpha-1 antitrypsin deficiency. See Additional Clinical Information and Comments. Performed By: #### A LPEN #### [facility] [address] [address] [address] Nichelle John Additional Information: Comment Normal [facility] Comment on above: Result Comment: Anish reza Clinical Information: Alpha-1 antitrypsin deficiency is an autosomal recessive metabolic disorder with variable severity and age at onset. Signs and symptoms may include increased risk for chronic obstructive lung disease that typically manifests after age 30, liver disease, and liver cancer. Liver disease can be present in infancy as cholestasis (jaundice) or in adulthood as cirrhosis and fibrosis. Lung and liver disease may be accelerated by environmental exposures such as smoking and excessive alcohol use. Established treatments for COPD and emphysema are used to treat lung disease; lung and/or liver transplantation may be an option for those with with severe disease. Intravenous augmentation therapy may be available for patients who meet criteria. . Comments: The ZZ and SZ genotypes account for more than 95% of individuals with severe alpha-1 antitrypsin deficiency. To rule out other variants, further testing of symptomatic individuals heterozygous for one variant (S or Z) or with negative results may include phenotyping (PI typing), AAT level testing, and/or expanded genotyping. . Genetic counseling is recommended to discuss the potential clinical implications of positive results, as well as recommendations for testing family members. Genetic Coordinators are available for health care providers to discuss results at [phone] ([phone]). . Test Details: Two variants analyzed: c.1096 G>A (p.[id number]), commonly referred to as the Z allele or PI*Z c.863 A>T (p.Ofr839Jyz), commonly referred to as the S allele or PI*S . Methods/Limitations: DNA analysis of the S and Z alleles in the SERPINA1 gene (NM_000295.4) was performed by multiplex allele-specific PCR amplification followed by gel electrophoresis. Results must be combined with clinical information for the most accurate interpretation. Molecular-based testing is highly accurate, but as in any laboratory test, rare diagnostic errors may occur. False positive or false negative results may occur for reasons that include genetic variants, blood transfusions, bone marrow transplantation, somatic or tissue-specific mosaicism, mislabeled samples, or erroneous representation of family relationships. . This test was developed and its performance characteristics determined by [employer]. It has not been cleared or approved by the Food and Drug Administration. . References: Princess JACK, Abby G, Kamini ML, Aramis M, Yusuf CE, Hu K, Nany DK, Joellen SL, Shellie JM, Tiffanie MESSINA, Mellissa C, Cody J. The Diagnosis and Management of Alpha-1 Antitrypsin Deficiency in the Adult. Chronic Obstr Pulm Dis. 2016 Dec 01;3(3):668-682. doi: 10.06324/jcopdf...0182. PMID: 61995284; PMCID: HRB6759448. Tiffanie MESSINA, Laura Weinstein, Darline GALLOWAY. Alpha-1 Antitrypsin Deficiency. 2005Apr 23 [Updated 2019November 15]. In: Cleve MP, She HH, Mabel JACK, et al., editors. Deric(R) [Internet]. [place] ([place]): [facility]; 9046-6825. Available from: https://www.ncbi.nlm.nih.gov/books/IYG1450/ Performed By: #### A LPHGEN #### [facility] [address] [place] [address] Dr. Nichelle John Electronically Signed By Comment Normal [facility] Comment on above: Result Comment: Severo Duarte, Ph.D., [facility] Performed By: #### A LPHGEN #### [facility] [address] [place] [address] Dr. Nichelle John CBC AUTO DIFFon 01-05-2022 BASO # 0.1 103/ul Normal 0.0-0.1 [facility] Comment on above: Performed By: #### C BC #### [facility] [address] [address] [address] Nichelle John Basophils/100 WBC (Bld) 0.6 % Normal 0.2-2.0 [facility] Comment on above: Performed By: #### C BC #### [facility] [address] [place] [address] Dr. Nichelle John EO # 0.1 103/ul Normal 0.0-0.7 [facility] Comment on above: Performed By: #### C BC #### [facility] [address] [place] [address] Dr. Nichelle John Eosinophils/100 WBC (Bld) 1.3 % Normal 0.9-7.0 [facility] Comment on above: Performed By: #### C BC #### [facility] [address] [place] [address] Dr. Nichelle John Erythrocyte distribution width (RBC) [Ratio] 12.9 % Normal 11.0-15.0 [facility] Comment on above: Performed By: #### C BC #### [facility] [address] [place] [address] Dr. Nichelle John Hematocrit (Bld) [Volume fraction] 39.5 % Normal 36.0-48.0 [facility] Comment on above: Performed By: #### C BC #### [facility] [address] [place] [address] Dr. Nichelle John Hemoglobin (Bld) [Mass/Vol] 13.3 g/dL Normal 12.0-16.0 [facility] Comment on above: Performed By: #### C BC #### [facility] [address] [place] [address] Dr. Nichelle John IG # 0.02 10e3/ul Normal 0.00-0.03 [facility] Comment on above: Performed By: #### C BC #### [facility] [address] [place] [address] Dr. Nichelle John IG % 0.2 % Normal 0.0-0.5 [facility] Comment on above: Performed By: #### C BC #### [facility] [address] [place] [address] Dr. Nichelle John LYMPH # 2.7 103/ul Normal 1.2-3.8 [facility] Comment on above: Performed By: #### C BC #### [facility] [address] [place] [address] Dr. Nichelle John Lymphocytes/100 WBC (Bld) 27.3 % Normal 20.5-60.0 [facility] Comment on above: Performed By: #### C BC #### [facility] [address] [place] [address] Dr. Nichelle Jonh MANUAL DIFF REQ NO Normal [facility] Comment on above: Performed By: #### C BC #### [facility] [address] [place] [address] Dr. Nichelle John MCH (RBC) [Entitic mass] 31.2 pg Normal 26.7-34.0 [facility] Comment on above: Performed By: #### C BC #### [facility] [address] [place] [address] Dr. Nichelle John MCHC (RBC) [Mass/Vol] 33.7 g/dL Normal 29.9-35.2 [facility] Comment on above: Performed By: #### C BC #### [facility] [address] [place] [address] Dr. Nichelle John MCV (RBC) [Entitic vol] 92.7 fL Normal 81.0-99.0 [facility] Comment on above: Performed By: #### C BC #### [facility] [address] [place] [address] Dr. Nichelle John MONO # 0.6 103/ul Normal 0.3-0.8 [facility] Comment on above: Performed By: #### C BC #### [facility] [address] [place] [address] Dr. Nichelle John Monocytes/100 WBC (Bld) 6.1 % Normal 1.7-12.0 [facility] Comment on above: Performed By: #### C BC #### [facility] [address] [place] [address] Dr. Nichelle John NEUT # 6.4 103/ul Normal 1.4-6.5 [facility] Comment on above: Performed By: #### C BC #### [facility] [address] [place] [address] Dr. Nichelle John Neutrophils/100 WBC (Bld) 64.5 % Normal 43.0-75.0 [facility] Comment on above: Performed By: #### C BC #### [facility] [address] [address] [address] Nichelle John Platelet mean volume (Bld) [Entitic vol] 9.1 fL Critically low 9.5-13.5 [facility] Comment on above: Performed By: #### C BC #### [facility] [address] [address] [address] Nichelle John PLT 346 103/ul Normal 150-450 [facility] Comment on above: Performed By: #### C BC #### [facility] [address] [address] [address] Nichelle John RBC 4.26 106/ul Normal 4.20-5.40 [facility] Comment on above: Performed By: #### C BC #### [facility] [address] [address] [address] Nichelle John WBC 9.9 103/ul Normal 4.0-11.0 [facility] Comment on above: Performed By: #### C BC #### [facility] [address] [address] [address] 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 COVID-19 vaccine- yes Symptoms started- yesterday Headache- no Sinus pressure- no Body aches- no Fatigue- no Earache- no Runny/stuffy nose- no Problem with Smell- no Problem with Taste- no Sore throat- no Cough- yes Scratchy tickly throat- no Chest symptoms- yes SOB/ chest tightness- yes Lung Hx asthma, bronchitis, chest colds- Pneumonia Fever/chills- no Nausea/ vomiting- no GI symptoms- no COVID exposure/ sick exposures- no Treatments- no History of Present Illness I have reviewed and verified the staff HPI to be accurate for this encounter. Patient presents via video visit for concern of cough and shortness of breath. Symptoms x1 day. Patient states she has had both Covid vaccines. Patient denies known sick contacts or Covid exposure. Patient recently traveled to [place]. Patient denies nasal symptoms or sore throat. Patient states she has a history of pneumonia. No quqi-vbk-ziskrol treatments used. Review of Systems Fatigue: no Body aches: no Chills: no Fever: no ALBERT: no Nasal congestion: no Rhinorrhea: no Cough: yes, dry SOB: yes Wheezing: yes Sore throat: no Ear pain: no Ear drainage: no Loss of taste or smell: no Nausea: no Vomiting: no Diarrhea: no Current or former smoker: current Underlying health conditions: yes, asthma, has rescue inhaler Known Covid exposure: no Physical Exam Vitals & Measurements HT: 149.0 cm HT: 149 cm WT: 65.0 kg WT: 65 kg BMI: 29.28 Video Visit: General: Well developed, well nourished, in no acute distress Lungs: No conversational dyspnea, no audible wheezing, appears in no acute respiratory distress Skin: Visible skin is pink without cyanosis Mental Status: Alert and oriented x3. Normal mood and affect Assessment/Plan 1. Cough (R05: Cough) This visit was conducted via two-way, real-time interactive video communications from my office using [employer] due to the restrictions of the COVID-19 pandemic. No physical exam was conducted other than those areas of the body visible to telecommunications with the patient located at [address] [place] [phone], with no one else in attendance. If it is determined that the patient should be evaluated in the clinic, the patient will be directed to the appropriate clinic or venue. The patient or their guardian verbally consented to this visit. Total time spent preparing the chart, conducting the encounter with the patient and family, and time spent documenting, reviewing, and ordering tests was 8 minutes. After reviewing symptoms and concerns with patient, discussed I would recommend that she stop at the convenient care so we are able to check her pulse ox and listen to her lungs. Patient left parking lot approximately 10 to 15 minutes ago. Patient states that she knows it is pneumonia and she gets this frequently. States nothing [id number]-jmpibox will help. Discussed in order to differentiate viral versus bacterial illness and to ensure that she is stable given complaints of shortness of breath, I will need to assess her. Also given option of order for chest x-ray instead to check for pneumonia which she can have done in the hospital. Patient declines xray. Patient refuses to return to [facility] for further assessment. Patient states that if I will not prescribe her tx without further eval, she will just follow-up with her doctor instead. Again advised patient she would need further eval in order to determine proper tx. She again declines. Ordered: TELEHEALTH Office Visit Level 2 New 55203 2. Shortness of breath (R06.02: Shortness of breath) see above plan Ordered: TELEHEALTH Office Visit Level 2 New 82217 3. BMI 29.0-29.9,adult (Z68.29: Body mass index [BMI] 29.0-29.9, adult) The standard range for ages 18 and older is >=18.5 and < 25 kg/m2. Your BMI today was above this range, this falls in the overweight to obese category and there are medical benefits to weight loss. We can offer counselling, referral, and/or medical support in addressing this problem. Your BMI and weight management will be followed at subsequent visits. Ordered: Body Mass Index (BMI) documented 3008F TELEHEALTH Office Visit Level 2 New [address]708 4. Cigarette nicotine dependence (F17.210: Nicotine dependence, cigarettes, uncomplicated) We strongly recommend to quit tobacco use. Cigarette smoking harms nearly every organ of the body, causes many diseases, and reduces the health of smokers in general. Quitting smoking lowers your risk for smoking-related diseases and can add years to your life. We encourage you to visit www.smokefree.gov access to helpful resources including free telephone support. If you decide on prescription treatment to help you quit, we would be happy to provide these. Ordered: Current tobacco smoker 1034F TELEHEALTH Office Visit Level 2 N (more content not included)... Normal [facility] Comment on above: Result Comment: Elec tronically Signed By: Esmer THOMAS CNP\.br\Date and Time Signed: 02/11/21 11:17 EDT Patient Educationon 02-12-20 21 Patient Education Smoking Cessation Quitting smoking is important to your health and has many advantages. However, it is not always easy to quit since nicotine is a very addictive drug. Often times, people try 3 times or more before being able to quit. This document explains the best ways for you to prepare to quit smoking. Quitting takes hard work and a lot of effort, but you can do it. ADVANTAGES OF QUITTING SMOKING ? You will live longer, feel better, and live better. ? Your body will feel the impact of quitting smoking almost immediately. ? Within 20 minutes, blood pressure decreases. Your pulse returns to its normal level. ? After 8 hours, carbon monoxide levels in the blood return to normal. Your oxygen level increases. ? After 24 hours, the chance of having a heart attack starts to decrease. Your breath, hair, and body stop smelling like smoke. ? After 48 hours, damaged nerve endings begin to recover. Your sense of taste and smell improve. ? After 72 hours, the body is virtually free of nicotine. Your bronchial tubes relax and breathing becomes easier. ? After 2 to 12 weeks, lungs can hold more air. Exercise becomes easier and circulation improves. ? The risk of having a heart attack, stroke, cancer, or lung disease is greatly reduced. ? After 1 year, the risk of coronary heart disease is cut in half. ? After 5 years, the risk of stroke falls to the same as a nonsmoker. ? After 10 years, the risk of lung cancer is cut in half and the risk of other cancers decreases significantly. ? After 15 years, the risk of coronary heart disease drops, usually to the level of a nonsmoker. ? If you are , quitting smoking will improve your chances of having a healthy baby. ? The people you live with, especially any children, will be healthier. ? You will have extra money to spend on things other than cigarettes. QUESTIONS TO THINK ABOUT BEFORE ATTEMPTING TO QUIT You may want to talk about your answers with your caregiver. ? Why do you want to quit? ? If you tried to quit in the past, what helped and what did not? ? What will be the most difficult situations for you after you quit? How will you plan to handle them? ? Who can help you through the tough times? Your family? Friends? A caregiver? ? What pleasures do you get from smoking? What ways can you still get pleasure if you quit? Here are some questions to ask your caregiver: ? How can you help me to be successful at quitting? ? What medicine do you think would be best for me and how should I take it? ? What should I do if I need more help? ? What is smoking withdrawal like? How can I get information on withdrawal? GET READY ? Set a quit date. ? Change your environment by getting rid of all cigarettes, ashtrays, matches, and lighters in your home, car, or work. Do not let people smoke in your home. ? Review your past attempts to quit. Think about what worked and what did not. GET SUPPORT AND ENCOURAGEMENT You have a better chance of being successful if you have help. You can get support in many ways. ? Tell your family, friends, and co-workers that you are going to quit and need their support. Ask them not to smoke around you. ? Get individual, group, or telephone counseling and support. Programs are available at local hospitals and health centers. Call your local health department for information about programs in your area. ? Spiritual beliefs and practices may help some smokers quit. ? Download a quit meter on your computer to keep track of quit statistics, such as how long you have gone without smoking, cigarettes not smoked, and money saved. ? Get a self-help book about quitting smoking and staying off of tobacco. LEARN NEW SKILLS AND BEHAVIORS ? Distract yourself from urges to smoke. Talk to someone, go for a walk, or occupy your time with a task. ? Change your normal routine. Take a different route to work. Drink tea instead of coffee. Eat breakfast in a different place. ? Reduce your stress. Take a hot bath, exercise, or read a book. ? Plan something enjoyable to do every day. Reward yourself for not smoking. ? Explore interactive web-based programs that specialize in helping you quit. GET MEDICINE AND USE IT CORRECTLY Medicines can help you stop smoking and decrease the urge to smoke. Combining medicine with the above behavioral methods and support can greatly increase your chances of successfully quitting smoking. ? Nicotine replacement therapy helps deliver nicotine to your body without the negative effects and risks of smoking. Nicotine replacement therapy includes nicotine gum, lozenges, inhalers, nasal sprays, and skin patches. Some may be available [id number] and others require a prescription. ? Antidepressant medicine helps people abstain from smoking, but how this works is unknown. This medicine is available by prescription. ? Nicotinic receptor partial agonist medicine simulates the effect of nicotine in your brain. This medicine is available by (more content not included)... [facility] Vital Signs Date Time Vital Sign Value Performing Clinician Denia muro 05-18-2023 11:55-0500 Diastolic blood pressure 48 mm[Hg] DO Jose Luis Currie Work Phone: [facility] 05-18-2023 11:55-0500 Heart rate 80 /min DO Jose Luis Currie Work Phone: [facility] 05-18-2023 11:55-0500 Respiratory rate 16 /min DO Jose Luis Currie Work Phone: [facility] 05-18-2023 11:55-0500 SaO2% (BldA) [Mass fraction] 95 % DO Jose Luis Currie Work Phone: [facility] 05-18-2023 11:55-0500 Systolic blood pressure 138 mm[Hg] DO Jose Luis Currie Work Phone: [facility] 05-18-2023 09:57-0500 Body height 147.32 cm DO Jose Luis Currie Work Phone: [facility] 05-18-2023 09:57-0500 Body temperature 99 [degF] DO Jose Luis Currie Work Phone: [facility] 05-18-2023 09:57-0500 Body weight 67.13 kg DO Jose Luis Currie Work Phone: [facility] Encounters Encounter Date Encounter Type Care Provider Facility Start: 03-08-2024 End: 03-08-2024 ambulatory NICOLASA HDZ Not Available Start: 03-07-2024 End: 03-07-2024 ambulatory DO JOSE LUIS P HOUSE Facility:[facility] Start: 12-18-2023 End: 12-18-2023 ambulatory JOSE LUIS P HOUSE Facility:[facility] Start: 12-06-2023 End: 12-06-2023 ambulatory MANUELITO GARDNER Not Available Start: 09-30-2023 End: 09-30-2023 ambulatory JOSE LUIS P HOUSE Facility:[facility] Start: 09-02-2023 End: 09-02-2023 ambulatory JOSE LUIS CURRIE Facility:[facility] Start: 05-18-2023 End: 05-18-2023 ambulatory Jose Luis Currie Facility:[facility] Start: 05-18-2023 End: 05-18-2023 Admission to same day surgery center DO Jose Luis Currie Work Phone: [facility] Work Phone: Start: 05-18-2023 End: 05-18-2023 ambulatory DO Jose Luis Currie Work Phone: [facility] Work Phone: Start: 03-17-2023 End: 03-17-2023 ambulatory JOSE LUIS CURRIE Facility:[facility] Start: 04-16-2022 End: 04-17-[address] JOSE LUIS CURRIE Facility:[facility] Start: 02-25-2022 End: 02-25-[address] JOSE LUIS CURRIE Facility:[facility] Start: 02-05-2022 End: 02-06-[address] JOSE LUIS CURRIE Facility:[facility] Start: 01-06-2022 End: 01-06-[address] JOSE LUIS CURRIE Facility:[facility] Start: 01-05-2022 End: 01-06-[address] JOSE LUIS CURRIE Facility:[facility] Procedures Date Procedure Procedure Detail Performing Clinician Start: 05-18-2023 Colonoscopy DO Jose Luis Currie Work Phone: Plan of Treatment Date Care Activity Detail Author Start: 05-18-2023 [facility] Patient Education Colon Polypectomy (DC) [facility] Work Phone: Payers Date Payer Category Payer Private Health Insurance [id number] 2023 Self-pay 2021 Private Health Insurance [id number] 1990 Unknown [id number] 2.16.84 [id number] 1992 Unknown [id number] 2.16.84 [id number] 1992 Unknown [id number] 2.16.84 [id number] 1992 Unknown [id number] 2.16.84 [id number] 1992 Unknown [id number] 2.16.84 [id number] 1992 Unknown [id number] 2.16.8 [id number] 1992 Unknown [id number] 2.16.8 40.1.198685.3.579.2.718 1992 Unknown [id number] 2.16.8 [id number] 1992 Unknown [id number] 2.16.8 40.1.106661.3.579.2.718 1992 Unknown [id number] 2.16.84 [id number] 1992 Unknown [id number] 2.16.84 [id number] 1959 Unknown [id number] Medicaid [facility] [id number] Unknown [id number] 2.16.8 [id number] Social History Date Type Detail Facility Start: [facility] Start: 1990 Sex Assigned At Female F [facility] Goals Date Patient Goal Desired Activity /State Medication management note 12-18-2023 Note Date & Type Note Facility 12-18-2023 Note Entered by MARK CURRIE DO on December 18, 2023 06:28:32 EDT From: JOSE LUIS CURRIE DO To: [facility] #[id number] Sent: 12/18/2023 06:28:31 EDT Subject: Medication Management Submitted: Complete:esomeprazole (NexIUM 40 mg oral delayed release capsule) Signed by JOSE LUIS CURRIE DO 12/18/2023 06:28:00 EDT Approved with modifications: esomeprazole (ESOMEPRAZOLE MAG DR 40 MG CAP) take 1 capsule by mouth once daily Qty: 30 cap(s) Days Supply: 30 Refills: 2 Substitutions Allowed Route To Pharmacy - [facility] #[id number] Patient matched by JOSE LUIS CURRIE DO on 12/18/2023 06:27:48 EDT From: [facility] #[id number] To: JOSE LUIS CURRIE DO Sent: December 17, 2023 8:29:16 AM CDT Subject: Medication Management Due: December 18, 2023 12:08:29 AM CDT On Hold Pending Signature Drug: esomeprazole (esomeprazole 40 mg oral delayed release capsule), take 1 capsule by mouth once daily Quantity: 30 cap(s) Days Supply: 30 Refills: 2 Substitutions Allowed Notes from Pharmacy: Dispensed Drug: esomeprazole (esomeprazole 40 mg oral delayed release capsule), take 1 capsule by mouth once daily Quantity: 30 cap(s) Days Supply: 30 Refills: 0 Substitutions Allowed Notes from Pharmacy: [facility] Procedure note 05-18-2023 Note Date & Type Note Facility 05-18-2023 Procedure note [facility] Evaluation note Note Date & Type Note Facility Evaluation note No assessment information availa [facility] Work Phone: History and physical note Note Date & Type Note Facility History and physical note Note Date/Time May 18, 2023 11:06am [facility] [address] [place] [address] Gastroenterology H&P Signed Patient: Mauro Damon MR#: [id number] : 1990 Acct:[id number] Age/Sex: 32 / F Adm Date: 3 Loc: Room: Type: [facility] Attending Dr: Bailee Edwards MD Copies to: Jose Luis Currie DO Bailee Edwards MD~ Date of Service: 05/18/2023 HISTORY & PHYSICAL: Patient's history with special attention to the cardiovascular, pulmonary systems and the current problem was reviewed with the patient immediately prior to the procedure. Present medications and doses reviewed in the EMR. Allergies and pertinent laboratory tests were also reviewedat this time in the EMR. The physical examination, as below, was then performed. Indication, assessment and HPI: 32-year-old female here for colonoscopy for evaluation of colitis Family history of GI malignancy? No PHYSICAL EXAMINATION Mouth and Pharynx : Moist mucus membranes, normal dentition Cardiac: Regular rate, regular rhythm Pulmonary: Clear to auscultation bilaterally, no wheezing Neurological: Alert and oriented x3, no focal deficits noted Abdomen: Abdomen soft, non-tender REVIEW OF SYSTEMS Constitutional: Denies malaise, fevers Cardiovascular: Denies chest pain, palpitations Respiratory: Denies shortness of breath, wheezing Gastrointestinal: Per HPI Genitourinary: Denies dysuria, polyuria Musculoskeletal: Denies joint swelling, joint stiffness Neurological: Denies numbness, tingling Integumentary: Denies rashes, skin lesions Endocrine: Denies fatigue, weight loss Written informed consent obtained from the patient. Risks (including but not limited to perforation, infection, bloating, bleeding, need for emergent surgeryand loss of life), benefits and alternatives explained and questions answered. The patient verbalized understanding. Based on history patient is an appropriate candidate for the procedure. Bailee Edwards M.D. Documented By: Bailee Edwards MD 05/18/231104 Signed By: <Electronically signed by Bailee Edwards MD> 05/18/231105 [facility] Work Phone: Hospital Discharge instructions Note Date & Type Note Facility Hospital Discharge instructions Additional Instructions DISCHARGE INSTRUCTIONS FOR COLONOSCOPY WHAT TO EXPECT: - You may feel full, gassy or cramping after your procedure. In some cases, this may be from a few hours to a day. Walking may help relieve the discomfort. - If you have polyp(s) removed you may note some minor bloody discharge after your first bowel movements. - You should begin to recover from anesthesia within 1 hour of the procedure, however may feel groggy for the next 24 hours. DO's AND DON'Ts: - Call your doctor right away if you have a hard abdomen, severe pain, are passing lots of bright red blood or clots. - Call your doctor if you develop any rashes, hives or difficulty breathing. - Let your doctor know if you have not had a bowel movement by 3 days after your procedure. - If you take 81 mg aspirin for your heart it is safe to resume this medication. - If you take other blood thinner medications your doctor will instruct you when these can safely be resumed. - Do NOT drive for 24 hours. - Do NOT operate machinery such as power tools, lawn mowers, snow blowers, sewing machines, etc. for 24 hours. - Avoid alcoholic beverages and drugs for allergies, nerves, or sleep. - Do NOT stay alone. Do NOT leave your child unattended. - Do NOT make important personal or business decisions or sign any legal documents. - Eat solid foods and drink liquids in smaller amounts than usual until normal appetite returns. If you should experience an upset stomach, liquids high in sugar content (soda, Arsenio-Aid, non-acid juices) are recommended. - You can resume normal activities tomorrow. FOLLOW UP & RECOMMENDATIONS: -Notify the doctor if you have any problems. -Repeat colonoscopy based on polyp pathology -Follow up with PCP. -Office number [phone]. [facility] Work Phone: Summary Purpose Family History No Family History Records Found Relationship Condition Age at Onset Recorded Date/T gely grandparent Diabetes mellitus Unknown father Diabetes mellitus Unknown Advance Directives No Advanced Directives Records Found Advance Directive Response Recorded Date/ Time Advance Directives No April 9:30am Chief Complaint and Reason for Visit Chief Complaint colitis Additional Source Comments INFORMATION SOURCE (unrecogn ized section and content) DATE CREATED AUTHOR 03/07/2021 [facility] DATE CREATED AUTHOR AUTHOR'S ORGANIZ ATION 04/24/2022 [facility] DATE CREATED AUTHOR AUTHOR'S ORGANIZ ATION 08/14/2023 [facility] DATE CREATED AUTHOR AUTHOR'S ORGANIZ ATION 03/09/2024 [facility] DATE CREATED AUTHOR AUTHOR'S ORGANIZ ATION 03/10/2024 [facility] EPIC Care Teams (unrecognized sec tion and content) Team Status: Active Member Role Status Dates Jose Luis Currie , Primary Care Provider Active Team Status: Inactive Member Role Status Dates Bailee Edwards MD Attending Provider Active Jose Luis Currie , DO Primary Care Provider Active FOR RECORDS PERTAINING TO PATIENTS WHO ARE OR HAVE BEEN ENROLLED IN A CHEMICAL DEPENDENCY/SUBSTANCEABUSE PROGRAM, SOME INFORMATION MAY BE OMITTED. This clinical summary was aggregated from multiple sources. Caution should be exercised in using it in the provision of clinical care. This summary normalizes information from multiple sources, and as a consequence, information in this document may materially change the coding, format and clinical context of patient data. In addition, data may be omitted in some cases. CLINICAL DECISIONS SHOULD BE BASED ON THE PRIMARY CLINICAL RECORDS. [facility] [employer] provides no warranty or guarantee of the accuracy or completeness of information in this document.
[2024-03-11 12:04] LABS: Basophils Absolute Auto 0.1 10^3/uL (0.0-0.1); Basophils Percent Auto 0.6 % (0.2-2.0); Eosinophils Absolute Auto 0.1 10^3/uL (0.0-0.7); Eosinophils Percent Auto 1.6 % (0.9-7.0); Hematocrit 38.1 % (36.0-48.0); Hemoglobin 12.5 g/dL (12.0-16.0); Immature Granulocytes Abs Auto 0.02 10^3/uL (0.00-0.03); Immature Granulocytes Pct Auto 0.2 % (0.0-0.5); Lymphocytes Absolute Auto 1.9 10^3/uL (1.2-3.8); Lymphocytes Percent Auto 22.6 % (20.5-60.0); Mean Corpuscular HGB Conc 32.8 g/dL (29.9-35.2); Mean Corpuscular Hemoglobin 30.2 pg (26.7-34.0); Mean Platelet Volume 9.6 fL (9.5-13.5); Monocytes Absolute Auto 0.4 10^3/uL (0.3-0.8); Monocytes Percent Auto 4.5 % (1.7-12.0); Neutrophils Absolute Auto 5.8 10^3/uL (1.4-6.5); Neutrophils Percent Auto 70.5 % (43.0-75.0); Platelet Count 324 10^3/uL (150-450); Red Blood Count 4.14 10^6/uL (4.20-5.40); Red Cell Distribution Width 12.3 % (11.0-15.0); White Blood Count 8.3 10^3/uL (4.0-11.0)
[2024-03-11 12:18] LABS: Estimated Average Glucose 120 mg/dL; Glycohemoglobin A1C 5.8 % (4.5-6.2)
[2024-03-11 12:31] LABS: Thyroid Stimulating Hormone 2.303 uIU/mL (0.358-3.740)
[2024-03-11 12:32] LABS: HCG Quantitative <1 mIU/mL
[2024-03-11 12:40] LABS: Free T4 0.89 ng/dL (0.76-1.46)
[2024-03-12 09:07] LABS: DHEA-Sulfate 94.9 ug/dL (84.8-378.0); FSH 4.3 mIU/mL (.); Luteinizing Hormone(LH) 5.4 mIU/mL (.)
[2024-03-16 22:06] LABS: DHEA, Serum 100 ng/dL (31-701)
== END 2024-03-11 11:45 | disposition home or self-care (01) ==
PROVIDERS: Visit Provider Physician Assistant
DX: E28.2 Polycystic ovarian syndrome (principal)
CPT/HCPCS: 36415; 82626; 82627; 83001; 83002; 83036; 84439; 84443; 84702; 85025

== ENCOUNTER 2024-03-22 10:54 | Outpatient (OUT) | payer OTHER, SELFPAY ==
--- NOTE | 2024-03-22 10:55 | US_ITS ---
The [address] [address] Patient Name: MAURO DAMON MRN: [id number] date: 1990 Sex: F Assigned Patient Location: [facility] Current Patient Location: [facility] Accession/Order Number: [id number] Exam Date: 03/22/2024 10:56 Report Date: 03/22/2024 12:59 At the request of: DEV ZHOU Procedure: US pelvis w/ transvaginal EXAMINATION: US pelvis w/ transvaginal HISTORY: POLYCYSTIC OVARIAN SYNDROME COMPARISON: No relevant comparison available. TECHNIQUE: Transabdominal and/or transvaginal sonographic examination was performed as indicated by examination type. FINDINGS: UTERUS: Small in size, but normal contour, echotexture, and appearance. Small amount of fluid within cervical canal. Uterus size: 7.2 x 2.3 x 3.5 cm ENDOMETRIUM: Normal homogeneous appearance. Endometrial thickness: 4 mm RIGHT OVARY: Small, but otherwise unremarkable. Blood flow present within ovary on color Doppler. . Ovary size: 1.8 x 1.7 x 1.9 cm LEFT OVARY: Small, but otherwise unremarkable. Blood flow present within ovary on color Doppler. . Ovary size: 1.8 x 1.4 x 1.7 cm CUL-DE-SAC: Unremarkable. No significant free fluid. BLADDER: Unremarkable. OTHER: None. US/US pelvis w/ transvaginal IMPRESSION: 1. Small uterus and small ovaries, but otherwise unremarkable. Electronically authenticated by: MODESTO REGALADO Date: 03/22/2024 12:59
--- OUTSIDE RECORDS SUMMARY | 2024-03-22 11:06 | XMS_ITS | CCD ---
Demographics Address [address] [place] [id number] Preferred Language en Marital Status Single Pentec[employer]alism Affiliation Unknown Race White Ethnic Group Not or Lati no Author Organization [facility] Care Team Providers Care Appeals Nurse Name Role Phone HOUSE, DR AMAYA Admitting [...] Consulting Unavailable MD Jerry Imchristal Attending Provider [phone] House, DO Amaya Primary Care Provider [phone] House, Jose Luis Primary Care Unavailable Asaad, [...] Estradiol (1 source) Estrogen Start: 05-18-2023 take [id number] ug by mouth once daily Norethindrone-Ethi n [...] [Verified on: 03/08/2024 11:31 EDT] Yuki Sykes [facility] Outside Recordson 07-06-2023 Outside Records [id number] [facility] Coding Summaryon 06-29-2023 Coding Summary HTMLBase 64 CyykzdazHWr0jQx+PGhlYWQ +HW4YWCYrI54ohKOibD5aB7 NMTElOSywgQVBQTElOSyIgb aBjIF2hrYKsAPDs IC8+GV9bYODmNylifDHmi5Q 3yLM2X74oks2iGSdhfCF5BH JvLfEqoumxe0vwjQt5NNpyW mluOyBt EVAanV89JED2sQ74Us90pIM meBQqe4wcbYi3QvOvKSAuHQ T9cFqxSAhxm4XvTRGiK94cw OOdc0B3 KLBmxQafoLEoWmRpgOM0mN3 dFOmcoyboq0hpuepbPyv0ge 38rYKps4P5qWB9E3MuraY7E GJvbGQg XuytfYJYpI2zrvdun3xiibx wXhLpYPElSWi2AGg7SYNqyD kaSxGdTJ23DFN2PGJpgeFfH 2FsLWFs rAxeSsK7d6O2Px8BW6IGEpt nV4DVUFDOUBiwzIG+PC90cj 76R0DtMhcfEug1GAHkQQP4c ZT8pJ6g KEDoIGbwu7Z6gUC2O4HlhkM ljv2jh7lqPIHvJDnuY89pzI Yyf1R1FOOhkZG9TKWrpGtxM iBzaG93 Oyc+ORVufWnle3EiYnrzc7j oj3aixMd3BxneTWKnzbSndF dtEIW1e6DqSi3kNZAejVP7e HQ5rE4n XzIfLeL4FTdmY764HoFfxZY cRrocU17yN8KzbFI+PHRyPj p2BWEvwJmyOE1kY9JtMAOkb mctbGVm aAacFQ5oZQIbellbJJKwhH3 gNBFxJ7u5CdPbFdI7NQnfE0 XiXOVkgipjAd71oK1bQnWvN iN1EAwy L1XsofN5POEzyCKjXAobFTJ 2T64cf1J7LYLnAEPwVXB4rT R0dE4fmFivvuhxtBMohTnmm mVydGlj NKdrXIgrG356SUCjaOelHbB vZGluZyBEYXRlOiAgMDEvMD IvMjAyNDwvdGQ+BMOtIGC7r WxlPSAn yHKbKMacTm5yoCiayRraDI0 pJYGsbxcaZFHpzL3cLICunK MqsHouLG1nWPExaokmf564F iAxMHB0 MTLmxGVgA9KocU2aEsRzVAZ rQUSyX7AjyCFwKHinJ200IV tpIuY7DBDayjYhX1DrRXZnb WduOiB0 g6X0Mn3Sd3DfvybcI2FqaKA sHdFuJowgOKs9A2XkOxjovU I+GG81LTOhPL04LNa1WKO3d WxlPSdi LCAnQ7CghR9qNuPnNKPsFDL kOyc+PHRhYmxlIHdpZHRoPS cvJQDyYsNhvVxhWJ4kRt6wA GVyLWNv aJnroCFfSbJxl7btZBVkJNh yAW6zqYzmL6QnhTS1JSXbv2 h3Hb19L97uU2GkvFP+PGNvb FE3kGS2 iA7bEvXeZwO0HSvtJ123AmN iuRQkKwtmz1zhx8yazEl9Vl U8QPPpovWsxCydVHP1z0VfQ t97S27s IHdpZHRoPSIxNSUiIHZhbGl mzd5zuA7zBq6+HNZynZO0rS P1oK0gNlXlHcV3VIshJ903X nRvcCIv Qcsrp4gkv3bfoJb6DwPeXSQ pxbBmdEwfOFT2l1SkUg10L0 VjxNscz9DyCeh6xr39cLPxo 4D7zXL1 L1AqMRSmprtegKQckUseGT8 gJQVjfkmzULRmvX3sXKIpR1 b9JtQyOxQ3ZWxbU2TwzgE5Y GJvbGQg BJHiwCQPvO5rxbixr8djehh qNaJzGBPqBWq6ASx5ZENeeA ihCpKmKEI2DdP6DSK0hODmk G9fsOtj gcdjvE6tQbg+JXO1wCKgrZA LUP3lVknoiXH+WXPlIFF1pH crTBddQICfsR6hCFYwL9x6B iAwLjA1 KMmiX7RythT0LJTnsZScETA ycJBPnR8vktmyb1vmumhlCk EtUPBvYEj7AFt2ETDfdVfiF iBsZWZ0 MfM0HGQ0mOZtpQ1clYxuity wlX8qTak+NesseEpwJGO1RE i2Z7HyWoh6XBVsmBpbGT4rw GFkZGlu Dl9nnTkejJxnWC5lCRPntrl sn423NpSfu0zpADRtlPJbYH kjTKG6J34qz6G8QPZfTREzJ LO6oWG9 hY3zmIxgomxpiZJswKzpmzG oiZmvUEjhVDplF127JXCtgS ysHoBvNFi6D0XvLaw7QLJbe EavWD6z sNXmKDnqQr4qaBvspLqiJD5 qAFSfqxygi190SjWnb0vtME PkoXKlGJanODL1D77zl6S8W CMwMDAw DWK6aEI9aZ4owIkkxaoiuOJ mdDsgdmVydGljYWwtYWxpZ2 36YDHbiShvUsIykVj2I3CxV bc5RYMa wMrxVI4ifFVuOLyvOf1iaNo ctKmrMR9sIBGidldtf266Bn Pjj8nfIAAfuVCyFJzsRFK1R 66rs9X4 PZZgLJXxFCM3iWC6mP5bjUj nbjogbGVmdDsgdmVydGljYW jkVFfvH005QXNbaQgaMrWpp GllbnQg EDeiTCa9H5HlQhhciBS+PC9 5ATDsJB64lCJmfWYcq7qcuD z8InFxPAFhRJM9bXcuUXpzt 3JkZXIt L89neBBcv5R3HIFrfCepvPD gDmEyhOM8oE7tPDvwaitvv0 hkzrcuQjwyn8edpv44rF22C 29sIHdp ZHRoPSIzMCUiIHZhbGlnbj0 aaG7wEh5+ZWJhjTB0wTY6fN 6aYLRvSiZ3OZuiZ245ClKue CIvPjxj a8ssx8wzoTs3NnR3PJCgpmI enNpuJVG4j5DaRc56M78mQD dpZHRoPSIyMCUiIHZhbGlnb i1cmF8j Ii8+KYTyiHQ2cFU1jB3rByS zMbJ3KCkhY147KzTauFGsLd taX75lO4ShbKQ+XOUmYui5M CBzdHls EB1soSPaMPsrPr9fFBN4MhY bGxSyYLfaT2XiSKQmmcunte oqaQX2RGMnQRHvwJ34Si9vd DogMTBw uXOLpQ5cyjiaw7rxyxgjXuO bYBSlCQb3KIt2OSWelJwuDu DfPEQ8FvU7DWY1tNNdvQ2vr Glnbjog eV6wE2FkREMfqcafXz93lO0 wYhDtEcQ7IMhfVib+SFVHSE VTLCBLQVlMRUlHSCBNQVJJR TwvdGQ+ JHNbCEE8nAuaGGpdCYBcyA1 zPOLgG4x2NlEoYsR3RYroL6 WbCBOlulzmTo47vN3mTrYlD kK4UYoa X0NbylX9HRKkvUZbVLnaRQU 5F77ey4R4QMFvIMCfDZD2nE T0iA0ehBrzvpeefZYpbZetw mVydGlj VWzvTFfkT378BAVfjGzbZpM 9HpQ0XjI8TWG2Q6PtYyp0XH CwmZehUC7elJGuRNiiTh1mp WdodDog GS0uREUmbpgnTXTlkR0nDTX laJCxxDlbQL2rXDGdcsvrb0 66PwKoDOK9SDYnoHZjG3Kzo M6eCgVa NUPjVBNgY2IyxKGnQGhkX05 1INczYlY0NECfcpVoV3KyFZ DkwNydFgC6z2K1Fl8pKDKYY WFyczwv dGQ+RLCbLBQ0dWxhUGxySCA bsL2iDHBiO4z7NoNqYzX1WQ ueI8MeGMGqytxkEl76hO6fD iAwLjA1 DBpfW5HyvzI9WPDwsNXhHQl cQXI8W85oq1S2YXKrWMQfKC O9vNC3rK8juBofuanydVXcu DsgdmVy pSdqKBgwHPdtJ037TIGoyMa nPkZFTUFMRTwvdGQ+PHRkIH Z7pSfhLGgzRZBmhC5dSQKxL 6t0VlXl NvA0HCatV9AhVQZaivtxYb8 2wB6wXaHrDhG6AMjsG8Ebmq M0FSLwlUIsYZxjDYZ2U77jc 3E2RUYa HGGaRCO1yNW3nC0jdDvhpgo gbGVmdDsgdmVydGljYWwtYW kbA151XUVmoMxaGo8MXJ38Q L89J6Cd PjwvdGFibGU+PHRhYmxlIHd pZHRoPScxMDAlJyBzdHlsZT 1tJx2hQMCnPYRehQxmsFVsC aWub4tj BVAwWIogQP9wtMovH3XzoNL 2XONvw8t9Gd38G24yK9JupF A+XOGazXS2pAB9oC8hSmXdB oY1GTje N746GfDteGByBauzn5iqu3k loWp9ZwEcTQAkdvEwyMbxCZ O3t5GcXb60N39sZYxoGZDoE SIyMCUi QRRveUboxj6rkP6oBt7+PGN ggQJ6nJU6yU1aZqYfHcS1TL qwG514GoUhoWBtAfpnY90kK 3JvdXA+ RYDcUez2XOClnXloEG6gkVX fFPgbVb7tBUL7FxUySmWpTI kxJ2ToEAQlrihsqchddEA1B DAuMDUw fM41Nn4gxHulNe0jZTXsHOU 0KBJyvOBjG1TrwC7zLaXyTH RgFDSbL0SqmUWfFSdvH968L GxlZnQ7 MIXkosFbL4TgIZKdpSipMpF 0q1L0Yd9YyCuszOCsHY2cJc LyPSv8P9KqWtd9WJFuqXufT W5ieDXi WKxqSv5nnUrndKdtDH0sPVH chnatz683VcZab9rwDIUjeN AzEMneGAL5V96fw8Y5CXAuL DAwMDA7 eVY5lS2xmPxgjzxeyAGfyGo xmeZlaHkbXHucMHanP930GE YibZgxSeAJGfh6Y5HtZlh1B CBzdHls FO9ddFTcKZycQq8nkPywcSd cOL7zIWRnrfkqn595EbOqj7 xlNTXzpTGqKJpzXNV0P92bx 2Z1JQOl MNRcYFK4mXE4qQ2cxSbypda gbGVmdDsgdmVydGljYWwtYW wuB718SDHonTydCe1BTsn0E 9IdZye9 YQPgxWuqRE5afCTbOAowHx9 whWgtsQanBM5jVGCjlreif0 84IaIgn0drOEFzsQJyCQnxD PX9A36r t3X2ZPGcRKYpKXL4yKP2bR4 hbGlnbjogbGVmdDsgdmVydG mkJEchUWfiM055KMAgxWhgX lBheWVy OjwvdGQ+IW64nf53J6ZyJyf nHnl2UUGhOJY0sGO2fJ0nYZ AuLIjrj4N8bWM6K6VrxkQqj k8dt0my YXB (more content not included)... [facility] HCG ( test) IAaguila d Ql (U)Ordered By: Bailee Edwards on 05-18-2023 HCG ( test) Ql (U) Negative [facility] HCG,Urineon 05-18-2023 Beta HCG ( test) Ql (U) Negative Normal [facility] Comment on above: Result Comment: PERF ORMED BY: [place] [id number] PATHOLOGIST WEB DATAB[employer] DEVELOPER MANJEET NOLAN M.D. Performed By: #### U HCG #### [address] Deni 05-18-2023 L --- Specimen: [id number] Received: 05/18/23 Status: BETTY Jefe Num: [id number] Spec Type: Surgical Subm Dr: Bailee Edwards MD Tissues: A Colon Biopsy (SIGMOID POLYP) Procedures: HE/David Gross/Tish L4 Age/ Patient Sex Location Account Attending Physician Mauro Damon 32/ [id number] Bailee Edwards MD SPEC NUM: [id number] RECD: 05/18/23 STATUS: BETTY JEFE NUM: [id number] SHY: 05/18/23- SUBM DR: Bailee Edwards MD [...] Description Microscopic examinations are performed CPT Codes 83113 Specimen: [id number] Received: 05/18/23 Status: BETTY [place] Num: [id number] Spec Type: Surgical Subm Dr: Bailee Edwards MD Tissues: A Colon Biopsy (SIGMOID POLYP) Procedures: AUDREY/David, Gross/Micro L4 Patient: Mauro Damon [id number] (Continued) Signed (signature on file) Chin-Ras John MD 05/20/23 1101 [facility] Patient Provided Health Data on 03-25-2023 Patient Provided Health Data [id number] [facility] Coding Summaryon 03-20-2023 Coding Summary HTMLBase 64 YwlagrugSPm6gWw+PGhlYWQ +LS7LABXsJ12elICmxK3cE3 NMTElOSywgQVBQTElOSyIgb uSuTW7jnZYpPYMv IC8+RS8eEAGyWiklcVGzf9R 3tJJ5O50qhl1bGLdtvGG9EO FoNdRdimgqu1pwcDp9LLvfJ mluOyBt GOPuwG85EQC6qW65Dh69gGM hgBPfo2vynZb9MxXlLHZcNT O4yMxuAUfak4TxKFXnZ70nt YQhd8F8 HRKnuLnndSFxMgGylXD3wR8 nCKrnhbitz4xtddabRwg6kb 41bCUjz5A9gJR3Q0VyjtM7T GJvbGQg XskzqQWQqY9hxjpls0weqtl bKeWnOVRqUSx3VEw4UWUboW fbRwPcZH98AGR4KMNpxqDaY 2FsLWFs vIeyZtP0z5N6Mg1QA3UIMjk fE3VPISWXVWqdzLZ+PC90cj 01X9HqVheyMng0ZPUuZSS8m DW2zG0i QMBrLZbrt0T9jGS6F0FhniB lle0jn5xyTPTvAMupZ15xiK Din9Q4UBSbpYU8DEWcdMcxH iBzaG93 Oyc+TAFudZnfz2LmNrias1n xm6ysaTt9AwmyFBXyytKobL yrOFZ9x7PhDb5uJSYawAG4w FV5yX0o UgIbXfQ7OXcdG288ZzLopYE yRwlvU94iC6CdiEC+PHRyPj l6OYWbiAbdAK8qA3KaQOKdd mctbGVm nQefJJ9qRQIcyehqYQLvyH4 sOSTvF4r0ZdAtNkI3HBseX4 QjQYPjgyheAn38zE6uVdTvB fB0QUjo X4WasfC4JFAdpOBnKOnzPVF 3B02qf4S1QLUhRXZvRFB0oK Z5lV8ztYppxaskdRIeyTsfw mVydGlj INviTLutD737XGXflXlyOjF vZGluZyBEYXRlOiAgMDkvMj MvMjAyMzwvdGQ+AQRjAEJ8t WxlPSAn jXZmWZvlLt0dsClweZdyHX6 uUCDgrjyxDTZahD4uECJvcV LmjCgsLT2oGWOfkzaxe841N iAxMHB0 HHVpfJMgQ9PizZ0gDvEeOSO mBZDkD5FtiAVjSHkzM211RU cdTyE1XVHslxQdC3EvSRAla WduOiB0 g2K2Ps6Xf9KwtdntP6YztGU kQfZfHkjkBVo3W6PwDxnutO I+GE73ZAElHI31HOn7ENN8o WxlPSdi SLGnY3HaaQ3aElPiFNUqBRL kOyc+PHRhYmxlIHdpZHRoPS avSLSdDpNjvRfvEQ3oOu8oX GVyLWNv eXsyxXYlQkDse0nxGUXiZCf sZT1hdMioY3WqrQL2BFJxc2 f6Cb35O17aX8LnvXS+PGNvb ZN6tZC1 iQ0aWhPkCpD5APmxT192IzZ ukPPuPhrjz4xwr6wprDs3Vl A8SHUalpHfgGfyEIS3x1OoC q54V95o IHdpZHRoPSIxNSUiIHZhbGl zkq2aoO8sNe7+QWZuaBE4vP F8qG2qZaJiDbE2ACgwQ415V nRvcCIv Lenea1uce6xrjOt3SfMwGET colPveImtIJT8h3HdYk16J6 AvmJsig5BhEqg1lj31iRMdl 0K3gXW7 J8BfIHKrbvgogSQkbZtfOU4 eLPPmkcrqIKVmiZ7lXCMzF1 x7CrRvFrO0XOitX0UzuvV8A GJvbGQg UUXacNHShK4qfiuyy2zvgva rViZcHVYwWCv5PNi5AVHclJ ykPjQsRTP9XzX7ZEM5sTFxo K6ayLhj rzeawG2cLfy+XQC1uVOinSO UPM3pFpcbvPP+WSHnHHQ7wQ rkYRwkIORzoZ5sCHFyO3t3H iAwLjA1 XUhlM4LxwrC2LVUsdJIhGZJ vcKDGvM6osjxly4qyypbvJq QfNMDtCTd7SRw5SXBamFnsQ iBsZWZ0 EeL1GQG6cGCedH5rrFfnmxe unC7rNme+VaxqmMfpPSI1KI g9W7ApVrk2TWLniTbfRS8ly GFkZGlu Sv4giXaelMpfFI2uKNNbyfh vu579DhLuc4pgCCWsyGPhTD vfFTG6I14tr2D0FQJxEDQzE BC3uXP3 lW7lyIqwviufcTDnhHsrtbR pmOzqOYgoKNheA014PGNbxO hmTpDkSMb4H8DpFiz9GDTfx KsvHA0r vBKcNQcuCe2cbNmabOeuJY6 zIBMuiibpn814WiVvx8kdRT VkmHAzJFvuBZK1E17is9W5H CMwMDAw YVB6jOT7gP5vgAikaafjxIL mdDsgdmVydGljYWwtYWxpZ2 77QKWjyEtyIhRqbBj5N7UiE rh1ZOKp gRtjSM5cpNAzWKqbCi6xjOe lvNauTF0oHPBaqzmvf332Ds Exg7tnQUMlxAIzMKswYII5D 21ud5R1 SHEqCADxHMT6gUJ5wJ4cfWq nbjogbGVmdDsgdmVydGljYW ejKHrpN299FLYtsDivYrQzp GllbnQg LMlyWEs1L0HsUkyanQA+PC9 1KSCvEZ09yNDwlSBvl0qfkM a8LlXrLUJsHFZ4jKyxLZycb 3JkZXIt G48lsBSfe9T4GNSgtJijqJL rEaVmfPG9tF3xXMisecbzb2 lohfjeAxtzh7kitl81eV39M 29sIHdp ZHRoPSIzMCUiIHZhbGlnbj0 ymB7nOl7+AMCnqAB5sWE4jY 3lZWLuRuO1RHlzA242HfKkh CIvPjxj t2wuz7xdxNu0AdM6AJFnzzD caVjxKGN7f3FiFw86Z92qUT dpZHRoPSIyMCUiIHZhbGlnb r0rcK7h Ii8+NINqmXD4cDI7jY6xVkU rRhO5YHppS845HaYkyOSeUp dvS37eZ0EoqSG+DAApMiy6U CBzdHls VQ4loCFfEKhgTv0sJNZ4IjZ iSaPnCGtpX4ZaVWZkydocba tanQQ5ZYAqSQFnzE61Wk7hk DogMTBw rXCBqV7uaxopr9kwergdTdP jHTVpGIs5SSl5QPYutQaoUz NfJZS8LgA3BHQ4fOWhxC9ej Glnbjog lE4gL6RqGIZmcstiGu62uG3 aQbCdSmP0MFlxTic+SFVHSE VTLCBLQVlMRUlHSCBNQVJJR TwvdGQ+ NLXyDPP2kQjuNTtsSVNrdR2 qOIZkB5p9LsOrNbL7ERxcQ8 MqGVYqqsqqJx75lI1iXxFvY aM0PCox B4QplgF2DZRhmULePGttILN 0S78na1H4LFQrIQNjGZX7hS M4tP3tuRneqmxmfUYkfMxmj mVydGlj FJfvRJzoH793SYUveQmjCuJ 7ZwU9ViV5HES6P5OlKcl0QQ VnlYmpCI7enRWhXJspFk2iy WdodDog ER4pYGIzjzpeBRIazH4nUFG weILzjAczQX6lCSScnyfqb6 22IfVkPEV8GHGkqOYeY9Xxy G5gUkAk AGXzLODmR5ZsfKWpQUixE68 8WJnmMpC4IWRoklAtF2GiSW ZjfDhuIeR8s4N4Lk7oMVQPL WFyczwv dGQ+NDHqSAF0oZhpLQrfIYE seJ7lVFOxQ6v1YwVrKuM2JH cuA2YgPLJwqhbnCr03wU0nQ iAwLjA1 GJsoZ3WdxtK9KGOouWOyGNo mULB6A65ef1Q1AXSeFJEhGI O1hND3uG7swXeowwsxlVBka DsgdmVy vIxdNGonBKowY143LFFrnIx nPkZFTUFMRTwvdGQ+PHRkIH Y1oPooGSotRLTsoX1vZZZiF 1e8DoDl UwV1GJjkT1MwWDJwzfrzMx9 0eI6nJlYxBpW0PWyaO3Xrrm L7IFNxsTLjMMucRTK3P12ee 2T9MBSl QUKkJFM6yIL9gX5nwJechhk gbGVmdDsgdmVydGljYWwtYW wrD025TJPjzTqjRuUyLIBbO B9qkGat dGQ+RJ56ho00L9DcHnseInn 8DIOfEHN2cEG9bU5oQMChBV tco3J2zIL1O3ZfrfXdoa7ih 2xsYXBz BNmaK29uzFKuy3X9JNLdjWW 5RJIjgFhfSfXrtE10Evy+PG PblJmcl2JuFmzjl3kcn2ppe Gg0HgMr BZXpmoMadYlyCTF5w4FxPf2 2I38sJTxuJGIyEYGsPNIfMK TjrZajba6ikF7lGp2+PGNvb MQ6xIN6 uQ0xFmJzOrU8IMawP494MrV adVZkBweua3mun2zgfPc8Gq ZqOVCcwcVguGcaHOF5h0AxI x83M3Ct rGwbm7TpHoj0uu16zIEgb2G 9qMC1A2ZlXVJcstgulZYenE wsUO5pFIEkabsdUGZheO9aP ATnK5j7 QnLxUqV1NIdwL1VkbiB0DAA vfTTnKUNxsIFPuJ7llruqy5 onwemhBzEwFBUeDWq9GRz6U WFsaWdu NmDfPSO1KfI2JTS9fZCtxD2 sdHsqhbatfM0hNqk+UGh5c2 ayyWRhBY5yqQG6EF95ZD87q IHed2E0 kMI8J1GtPKUxwozthopxiQY 7IDMwHLEuyX41Df5rbGlcWe 4hSYTjMIU7KKRdsWQnK9Fhy Z1qRqPz GIZbDASzB7EegQEkAUzvQ42 8ILlvJuV1MGJeiuUoS2CwKZ WojDxyKuM6j7Q5Bc3MDX03A V81FC10 vZOby8T8rDR9K2CwWZUoall gvmjipJH6FZTvMEUpfY96Fw 4kaMyuEn0eWEIuQLR4HILqf XUtY8Nq fE7eDoVpYFArTUBjW4WhbDX fIUqjD563QOvhIgC0MJOsqr YmG3VlRKMiqPmaEoA1x9T8P x6MDs31 JR25YK34aJEej4A1wIN2D3K eMSFoppefeyceaOJ4PNIkQQ KqmG20Dm6teCbbTr7hODYwE DD0JMGz xEEgO2MxgK0lZeGcXEEdFQO gU1CbyTKoHRzuF545EJajTx L5GEPxxvFdU4PiHNMrxIxtO qT6y6C6 Lv4ZUTxbjmv7N6DdBaxdzNN +FW57IPHbBW63qUFilBFyt5 ykxRv5CdAuPFZbQNK5zCneD Utrl3Xj ZXI (more content not included)... [facility] Coding Summary HTMLBase 64 KojepeagGGx9mAu+PGhlYWQ +SB7PSCCtP49klCSifR0cX1 NMTElOSywgQVBQTElOSyIgb dVkKL7yuSVzGDHf IC8+WR4tBOTuNqvsxRBdp4E 7rAJ2C39wsv3wNPriyRE5XB HvDzOenqhhc9hnjOn2KFtpS mluOyBt RYBrcF43JDN7kF05Iy87fMA chHHpb9jyhKw6CiAxWUUrZX G3oAbnUWwus6EiKBMvP89cz HJml8Z8 ENTpoLncrLQlLnDiwXJ8jP2 qZOaiwngyz5imlqdeOmo4ol 58cYXcd3F4sNE1P9HpeiQ1A GJvbGQg UxfgpVWNqH9eldypw0lwycb jCzJaMXLgEZd8QZb9UWUqeV syRyVgAY50SGE8LAAolyCrF 2FsLWFs vEkxHsS8g1C9Lw1YV9AJGdn kI5IGGCWUTVaehXY+PC90cj 77D5NjUflgCxn9CYUeMFO5c DE5vP0c XNNhZPrmf3A0cIL3U2AhmsF eed9gj0woMZIcHMhnC06nuY Kem6N6FBWlvVD2QUHomEpzH iBzaG93 Oyc+NGItlWstv0CpDquiq0w te4vhaJu3ZzjyEDBxbgIgtW yeBOG8g1JhOy1kDLBhwKJ4n HR6eY6r JpHlWvX2IKzrU726JeHyuCG gXthfV13sW2SahNC+PHRyPj d7YUXblNkhNB6tZ9SmJAZjl mctbGVm wFraCO0uEYXqzknwGKAwpX7 bBQHfI7z5BbOxFmN1WQpaR6 MzKASffaghQc97yY6kLyAqN zY5TLvn O8FqfdP0NOPkjRYqRSqgAGX 4R51dx6Z7SFPbSPWoGHA5vX Z3eS9jnJnagdnjbCPkzEsih mVydGlj DZjcPBliC168QONlyFelQnS vZGluZyBEYXRlOiAgMDkvMj MvMjAyMzwvdGQ+RLBkBPD9p WxlPSAn tLMqZMyxLk5myHrggGemWE5 jPNYhpsngRVFrgV8vTBIsrU LkjCdxIC7vLIZxohpjx597J iAxMHB0 XJEwfQQeI2GovO5uJnRyTGT xDKWeM4YpcWWtJNiwK072TI jxCiL5YGPvemWgS9SyZTFne WduOiB0 s5A1Fa9Kc5UtxbslJ6IkoDA sQgBuCrjjUQy2H7YtDvypwX I+PN82KIHdKW90ILz6LHC0y WxlPSdi SDKvZ6LaeT5eAsWgMGDhFOG kOyc+PHRhYmxlIHdpZHRoPS akWJIsWlJekFhwXY3rKi7jB GVyLWNv oYggiHIuTrRih0ejRWEaGTl vYI9uwUuqU4YngRC8QCQxy2 d8Sy69U24yX0JvhNB+PGNvb RG4iSG6 cC8eGxKxLxF2OCzrA562TdR hrECgJjfdv8iml3slzDm4Dx G4HQBdczIweSdcOWA4l9KyJ h27X23p IHdpZHRoPSIxNSUiIHZhbGl ibq8zzQ0pDt0+CEFlyUO1pW P5vQ3dQkFtMoO4VDclV731J nRvcCIv Picwg1mim2mrzWr5ZsQrLDC jjaUdeRicYOO2c6NfBv06R4 FvbMoep0LfPqu2uy17qCPnt 5V9kKA0 C9XoIBIetduekQAvlBgyDV6 mFQCmgccjDGVrwS8zDKJwX5 i1OmQrThB5MCwzC8YktdK3A GJvbGQg IJFggGHJqP9lvixbs2yxgjx iDjAeJFNrMXk1ERk8EZTizF ptPzLnDAE0OvJ7NSI8fWNki G7fzPaj kqqagV2bVpe+IHH2nGXkqRV SYZ2zGmbvtWF+LWBxWAS9qH xiLKxkUASclX7hIKFwC2c9P iAwLjA1 JYyvB7FymuA5ATWqgFXgTRG spAOUfL6gvkjns9usqccvPj MoILBkTTv7GZl7KQAruEmtI iBsZWZ0 RoK6YMI9cELebX0wyRjvtaq kaO9gZne+TmwbxPppZAR5FR o5Q3SlXmi8QNDfnXwrMT3zb GFkZGlu Qe0rfFhooPztNL2bMQQfxji vr710MgLhd7bfGENpiKPhPY ivGEP3V70yc4E9IPFvMSZnD SY6uWT6 jH2wbDsysullpRKzuTobkxN xuTsfAVwvCTukU722LSOoxH wpVgEdIXd0S7FgLie0QHBzt OfgXN1z oQSjBUyvAc2fsOykjKtaQV8 rQFEoobzbp179WeNll1vsQE KywFCnJTmmNSJ6I84ba8V2L CMwMDAw JAB5oIZ9jA8dxTxsjadaoNE mdDsgdmVydGljYWwtYWxpZ2 09OYJqtNgeCiTnsVh4U5EtP np3VSIt sTmwUV0gzATtRUblTi2jkJa vyEsgED8qSRPnvxopz409Vl Xst2mcYFJwqPRhEPimWGJ3F 85ij2J3 NAKeXZCbJGT6hEE1kS9ynEd nbjogbGVmdDsgdmVydGljYW pqEAmmS611QOXoeSdbLqLym GllbnQg PIpqXGt3R7BdCtseaMB+PC9 4BPImVP94aEYniGShw0pbgY f1AwHtIFKhXXT9fAucILpvn 3JkZXIt C83nhEIoj6M3HWThgWjnzKF ePkXlrJW3yA1jYWqzuseth5 nslxktObqvb4zswq64pW55A 29sIHdp ZHRoPSIzMCUiIHZhbGlnbj0 jsI3jJt9+RJIwhEQ7hZA6jQ 7aTQHrAaQ5FXswC347EyWlv CIvPjxj k4lwd3lmpVk5QfP9JOZukqO phCjbVMR8z7BgAj92Q34zAI dpZHRoPSIyMCUiIHZhbGlnb v2azT7y Ii8+KZSdrZA3rNJ0sI9qLpL uYdE9JKbaI942UvUyeSFdIy juF68cI2NwqFF+UWAeHch4P CBzdHls RK7ifQQqXHuqUy0xOBH2CzS wGuJjIWskN4FeKZSetldvzd tmxND3YLVhKGJrwO94Vb9dj DogMTBw fQIEyB4wnpuzi3ltqykkVkQ vEEVgAGz0PQb6TOLcxRdiUn LnLEK4OkZ0KYF1hWBhlD0hl Glnbjog fP4nN9AjZRRepjkmVh90qS1 sBgPoYvS9FUgwScv+SFVHSE VTLCBLQVlMRUlHSCBNQVJJR TwvdGQ+ UKBrYTL4hTtfBOkkRLLzvJ1 fNBGoM6p9MfQrMjP7KPhdV4 BuWJUumkiwDq80zL6vXgLuL jY0TYqi S6JtdeU6EUKwrTXcKLemFZY 9J23rp1B1NWWpPRBsZFM6oX M2wM5lyYxghcggzIArdFcbk mVydGlj SDlrCRasW730IGMmiYhwLgN 7XdS1YsQ9SPI8O5KeMiv4ZH ZdaObwPK3vqBXsPWlzCi0fp WdodDog EC2lFGPunhgaDKQitA8aDHQ seVNleTzqGI5tGLUabibwp9 68UnXtJCF5AIXcoVAaR9Mzh K8xHiEn OELtZMDeQ1DygFOoFNbrO89 0ILjoLsZ9IWTxtoNjJ7XxSI KvfBrzXmS2l0B3Rp0ySVZEU WFyczwv dGQ+YLPwSFW1zIdiEEzvEPR rdV9zXBJxH4s6UlJbPvL1XM guQ7HaGXPlvlapVw39bH9iL iAwLjA1 UZtiH1HkxbN1IVSfwBOnTOs hAJI9D32mz4Y1GHXbPCGxHN X4wFQ6nH0mzVocftqfrEYcy DsgdmVy fDxfEQsmIPiyF118GCOvoXs nPkZFTUFMRTwvdGQ+PHRkIH E9fUwtPTghEVZtaA1lMYXmY 7b6RfQp HqF1VXejT9FuLPUlzsewDh6 4uJ5iMoXdBaP3PYgzQ7Lqox R3FNKdwSChNJpqRAA3H26rf 1V5CATv BNAhTFF4xKD8tO9tfVfqlgz gbGVmdDsgdmVydGljYWwtYW leS024OPPtsCnvMnLwKRMlB A6plKnw dGQ+AK58fe88E7FiSuneAxx 0VHQpVDP6jLY7fK1kASSxFZ kma8P0dCX2K0CzbkDbhc2fu 2xsYXBz PKpbD30bnDQzx3O0UICvhEM 3VWIyeGtdUvHfrQ11Fgw+PG CumMfca0JwXenqk6rsv7crd Hf4HgQz BPQoxqKepOwdEIW0v5GnLt1 9R21vDXqcTRWiDICtNBGnJX AjfShzxv8vmP0uWf9+PGNvb OT0vOA4 hF6tQtJqGiM3RRtaX120ElF otIYhPrjfi6zey2aekKh8Oe ObDINemcCosUtuNCK2p7UzW k41U4Xl aEwip5YkTkf3xc37oPZxv0M 7eBP6S8VvHKUepusabYAtrK ikXH0sSLOpjixkCJIajK8iR XSdJ1t3 MtIcFjQ0UMbtY8KlixX4BPO afQLfUCAlfRNFmU3opkgpb9 euregmThLsENUqRMb5FMe1R WFsaWdu RsYuDJY4UlK6REG4fNPlmD0 mzLfrqxeojS9qUyn+UGh5c2 qvrAXpEN0inYE8HF12TD02x AKzz5T5 mUS9X1ZvDBIblztrqtybxZC 4CUGgXUDdbS21Zv0edCbzJl 2jAMNsFGG5EFXrnBKjI0Gpz E0wGqNs DEUbRJCbN7SkjECrYKvfI68 5CThjKjW5MIAxkqWvZ1DpRR YbaAenTjX8p7R3Cc6XQQ88T D57CE86 oYYjv1P0qLN1R8VuRLBnilk ggwlptVW5PWGdECIgbM38Ox 1enOfyIt2hGGFvSRS8DNBsz BOpR4Kg qN4kXyXgFTRlMKZcL0QneKG sGLvyB958DZerJbE3DZTtnz JkE3VlLUUbtAkdOjR5i6Y0I w5WRw75 SO19QZ47dGJue6M8xKN8X9Q ySDZwcmetoetrlIP0SLEzLT XdmH22Yv1czWuxKo5mKLLfU WT4QXMc hTOdO7HmiY8lZhYdHUBkMTC aC4JpoGNyPAnnJ569BSqnNx W1KKIxfdVdR6WkQMOssPexV wH3v5A1 El9POKlhzav4G5TmPvagkTJ +AB11JKHoOP25gGVjuQFhu2 zzoVg4JrDaSWRyHRV9cYznJ Xcwh2Fy ZXI (more content not included)... Normal [facility] IMMUNOGLOBULINS IGA/IGM/IGG/ IGE QUANTITAon 04-24-2022 Immunoglobulin A, Qn, Serum 109 mg/dL Normal 87-352 [facility] Comment on above: Result Comment: Perf ormed at: CB Performed By: #### I MMUNGF #### [facility] [address] [place] [address] Dr. Nichelle John Immunoglobulin E, Total 37 IU/mL Normal 6-495 [facility] Comment on above: Result Comment: Perf ormed at: BN Performed By: #### I MMUNGF #### [facility] [address] [place] [address] Dr. Nichelle John Immunoglobulin G, Qn, Serum 499 mg/dL Critically low [id number] [facility] Comment on above: Result Comment: Perf ormed at: CB Performed By: #### I MMUNGF #### [facility] [address] [place] [address] Dr. Nichelle John Immunoglobulin M, Qn, Serum 54 mg/dL Normal 26-217 [facility] Comment on above: Result Comment: Perf ormed at: CB Performed By: #### I MMUNGF #### [facility] [address] [place] [address] Dr. Nichelle John CBC AUTO DIFFon 04-16-2022 BASO # 0.1 103/ul Normal 0.0-0.1 [facility] Comment on above: Performed By: #### C BC #### [facility] [address] [place] [address] Dr. Nichelle John Basophils/100 WBC (Bld) 0.4 % Normal 0.2-2.0 [facility] Comment on above: Performed By: #### C BC #### [facility] [address] [place] [address] Dr. Nichelle John EO # 0.2 103/ul Normal 0.0-0.7 [facility] Comment on above: Performed By: #### C BC #### [facility] [address] [place] [address] Dr. Nichelle John Eosinophils/100 WBC (Bld) 1.5 % Normal 0.9-7.0 [facility] Comment on above: Performed By: #### C BC #### [facility] [address] [place] [address] Dr. Nichelle John Erythrocyte distribution width (RBC) [Ratio] 12.6 % Normal 11.0-15.0 [facility] Comment on above: Performed By: #### C BC #### [facility] [address] [place] [address] Dr. Nichelle John Hematocrit (Bld) [Volume fraction] 39.4 % Normal 36.0-48.0 [facility] Comment on above: Performed By: #### C BC #### [facility] [address] [place] [address] Dr. Nichelle John Hemoglobin (Bld) [Mass/Vol] 13.2 g/dL Normal 12.0-16.0 [facility] Comment on above: Performed By: #### C BC #### [facility] [address] [place] [address] Dr. Nichelle John IG # 0.05 10e3/ul Critically high 0.00-0.03 [facility] Comment on above: Performed By: #### C BC #### [facility] [address] [place] [address] Dr. Nichelle John IG % 0.4 % Normal 0.0-0.5 [facility] Comment on above: Performed By: #### C BC #### [facility] [address] [place] [address] Dr. Nichelle John LYMPH # 3.0 103/ul Normal 1.2-3.8 [facility] Comment on above: Performed By: #### C BC #### [facility] [address] [place] [address] Dr. Nichelle John Lymphocytes/100 WBC (Bld) 26.0 % Normal 20.5-60.0 [facility] Comment on above: Performed By: #### C BC #### [facility] [address] [place] [address] Dr. Nichelle John MANUAL DIFF REQ NO Normal [facility] Comment on above: Performed By: #### C BC #### [facility] [address] [place] [address] Dr. Nichelle John MCH (RBC) [Entitic mass] 31.4 pg Normal 26.7-34.0 [facility] Comment on above: Performed By: #### C BC #### [facility] [address] [place] [address] Dr. Nichelle John MCHC (RBC) [Mass/Vol] 33.5 g/dL Normal 29.9-35.2 [facility] Comment on above: Performed By: #### C BC #### [facility] [address] [address] [address] Nichelle John MCV (RBC) [Entitic vol] 93.6 fL Normal 81.0-99.0 [facility] Comment on above: Performed By: #### C BC #### [facility] [address] [address] [address] Nichelle John MONO # 0.7 103/ul Normal 0.3-0.8 [facility] Comment on above: Performed By: #### C BC #### [facility] [address] [address] [address] Nichelle John Monocytes/100 WBC (Bld) 6.1 % Normal 1.7-12.0 [facility] Comment on above: Performed By: #### C BC #### [facility] [address] [address] [address] Nichelle John NEUT # 7.5 103/ul Critically high 1.4-6.5 [facility] Comment on above: Performed By: #### C BC #### [facility] [address] [address] [address] Nichelle John Neutrophils/100 WBC (Bld) 65.6 % Normal 43.0-75.0 [facility] Comment on above: Performed By: #### C BC #### [facility] [address] [address] [address] Nichelle John Platelet mean volume (Bld) [Entitic vol] 9.6 fL Normal 9.5-13.5 [facility] Comment on above: Performed By: #### C BC #### [facility] [address] [address] [address] Nichelle John PLT 369 103/ul Normal 150-450 [facility] Comment on above: Performed By: #### C BC #### [facility] [address] [address] [address] Nichelle John RBC 4.21 106/ul Normal 4.20-5.40 [facility] Comment on above: Performed By: #### C BC #### [facility] [address] [address] [address] Nichelle John WBC 11.4 103/ul Critically high 4.0-11.0 [facility] Comment on above: Performed By: #### C BC #### [facility] [id number] Nichelle John XR CHEST 2 Von [...] by: GONZALO MEDELLIN Date: 2022-04-16 16:35 Normal [facility] PAP ACOG PANEL 2: 23 to 31on 03-05-2022 . . Normal [facility] Comment on above: Performed By: #### [id number] #### [facility] [address] [place] [address] Dr. Nichelle John Age Gdln ACOG Testing 23- Normal [facility] Comment on above: Performed By: #### [id number] #### [facility] [address] [address] Dr. Nichelle John DIAGNOSIS: Comment Normal [facility] Comment on above: Result Comment: NEGA TIVE FOR INTRAEPITHELIAL LESION OR MALIGNANCY. Performed By: #### [id number] #### [facility] [address] [place] [address] Dr. Nichelle John Methodology: Comment Normal [facility] Comment on above: Result Comment: This liquid based ThinPrep(R) pap test was screened with the use of an image guided system. Performed By: #### [id number] #### [facility] [address] [place] [address] Dr. Nichelle John Note: Comment Normal [facility] Comment on above: Result Comment: The Pap smear is a screening test designed to aid in the detection of premalignant and malignant conditions of the uterine cervix. It is not a diagnostic procedure and should not be used as the sole means of detecting cervical cancer. Both false-positive and false-negative reports do occur. . Performed By: #### [id number] #### [facility] [address] [place] [address] Dr. Nichelle John Performed by: Comment Normal [facility] Comment on above: Result Comment: Vida Rolon Utility Sales Representative (ASCP) Performed By: #### [id number] #### [facility] [address] [place] [address] Dr. Nichelle John Reflex Criteria: Comment Normal [facility] Comment on above: Result Comment: The HPV DNA reflex criteria were not met with this specimen result therefore, no HPV testing was performed. . Performed By: #### [id number] #### [facility] [address] [place] [address] Dr. Nichelle John Specimen adequacy: Comment Normal [facility] Comment on above: Result Comment: Sati sfactory for evaluation. Endocervical and/or squamous metaplastic cells (endocervical component) are present. Performed By: #### [id number] #### [facility] [address] [place] [address] Dr. Nichelle John [id number] DNA ANAL YSISon 01-15-2022 AAT, DNA Analysis Comment Normal [facility] Comment on above: Result Comment: Resu lt: c.1096 G>A (p.Ugg122Zkd), Z allele - Not detected c.863 A>T (p.Rkq581Sqg), S allele - Not detected Not associated with increased risk of developing clinically relevant symptoms of alpha-1 antitrypsin deficiency. See Additional Clinical Information and Comments. Performed By: #### A LPEN #### [facility] [address] [address] [address] Nichelle John Additional Information: Comment Normal [facility] Comment on above: Result Comment: [...] health care providers to discuss results at [phone] ([phone]). . Test Details: Two variants analyzed: c.1096 G>A (p.Qtj746Oww), commonly referred to as the Z allele or PI*Z c.863 A>T (p.Zsm496Spk), commonly referred to as the S allele [...] developed and its performance characteristics determined by [employer]. It has not been cleared or approved by the Food and Drug Administration. . References: Princess JACK, Abby G, Kamini ML, Aramis M, Yusuf CE, Hu K, Nany DK, Joellen SL, Shellie JM, Tiffanie MESSINA, Mellissa C, Cody J. The Diagnosis and Management of Alpha-1 Antitrypsin Deficiency in the Adult. Chronic Obstr Pulm Dis. 2016 Dec 01;3(3):668-682. doi: 10.25665/jcopdf...0182. PMID: 60471301; PMCID: OOT2713981. Tiffanie MESSINA, Laura Weinstein, Darline GALLOWAY. Alpha-1 Antitrypsin Deficiency. 2005Apr 23 [Updated 2019November 15]. In: Cleve MP, She HH, Mabel JACK, et al., editors. Deric(R) [Internet]. [place] ([place]): [facility]; 8449-4580. Available from: https://www.ncbi.nlm.nih.gov/books/PFJ2858/ Performed By: #### A LPHGEN #### [facility] [address] [place] [address] Dr. Nichelle John Electronically Signed By Comment Normal [facility] Comment on above: Result Comment: Severo Duarte, Ph.D., [facility] Performed By: #### A LPHGEN #### [facility] [address] [place] [address] Dr. Nichelle John CBC AUTO DIFFon 01-05-2022 BASO # 0.1 103/ul Normal 0.0-0.1 [facility] Comment on above: Performed By: #### C BC #### [facility] [address] [address] [address] Nichelle John Basophils/100 WBC (Bld) 0.6 % Normal 0.2-2.0 [facility] Comment on above: Performed By: #### C BC #### [facility] [address] [place] [address] Dr. Nichelle John EO # 0.1 103/ul Normal 0.0-0.7 [facility] Comment on above: Performed By: #### C BC #### [facility] [address] [place] [address] Dr. Nichelle John Eosinophils/100 WBC (Bld) 1.3 % Normal 0.9-7.0 [facility] Comment on above: Performed By: #### C BC #### [facility] [address] [place] [address] Dr. Nichelle John Erythrocyte distribution width (RBC) [Ratio] 12.9 % Normal 11.0-15.0 [facility] Comment on above: Performed By: #### C BC #### [facility] [address] [place] [address] Dr. Nichelle John Hematocrit (Bld) [Volume fraction] 39.5 % Normal 36.0-48.0 [facility] Comment on above: Performed By: #### C BC #### [facility] [address] [place] [address] Dr. Nichelle John Hemoglobin (Bld) [Mass/Vol] 13.3 g/dL Normal 12.0-16.0 [facility] Comment on above: Performed By: #### C BC #### [facility] [address] [place] [address] Dr. Nichelle John IG # 0.02 10e3/ul Normal 0.00-0.03 [facility] Comment on above: Performed By: #### C BC #### [facility] [address] [place] [address] Dr. Nichelle John IG % 0.2 % Normal 0.0-0.5 [facility] Comment on above: Performed By: #### C BC #### [facility] [address] [place] [address] Dr. Nichelle John LYMPH # 2.7 103/ul Normal 1.2-3.8 [facility] Comment on above: Performed By: #### C BC #### [facility] [address] [place] [address] Dr. Nichelle John Lymphocytes/100 WBC (Bld) 27.3 % Normal 20.5-60.0 [facility] Comment on above: Performed By: #### C BC #### [facility] [address] [place] [address] Dr. Nichelle John MANUAL DIFF REQ NO Normal [facility] Comment on above: Performed By: #### C BC #### [facility] [address] [place] [address] Dr. Nichelle John MCH (RBC) [Entitic mass] 31.2 pg Normal 26.7-34.0 [facility] Comment on above: Performed By: #### C BC #### [facility] [address] [place] [address] Dr. Nichelle John MCHC (RBC) [Mass/Vol] 33.7 g/dL Normal 29.9-35.2 [facility] Comment on above: Performed By: #### C BC #### [facility] [address] [place] [address] Dr. Nichelle John MCV (RBC) [Entitic vol] 92.7 fL Normal 81.0-99.0 [facility] Comment on above: Performed By: #### C BC #### [facility] [address] [place] [address] Dr. Nichelle John MONO # 0.6 103/ul Normal 0.3-0.8 [facility] Comment on above: Performed By: #### C BC #### [facility] [address] [place] [address] Dr. Nichelle John Monocytes/100 WBC (Bld) 6.1 % Normal 1.7-12.0 [facility] Comment on above: Performed By: #### C BC #### [facility] [address] [place] [address] Dr. Nichelle John NEUT # 6.4 103/ul Normal 1.4-6.5 [facility] Comment on above: Performed By: #### C BC #### [facility] [address] [place] [address] Dr. Nichelle John Neutrophils/100 WBC (Bld) 64.5 % Normal 43.0-75.0 [facility] Comment on above: Performed By: #### C BC #### [facility] [address] [address] [address] Nichelle John Platelet mean volume (Bld) [Entitic vol] 9.1 fL Critically low 9.5-13.5 [facility] Comment on above: Performed By: #### C BC #### [facility] [address] [address] [address] Nichelle John PLT 346 103/ul Normal 150-450 [facility] Comment on above: Performed By: #### C BC #### [facility] [address] [address] [address] Nichelle John RBC 4.26 106/ul Normal 4.20-5.40 [facility] Comment on above: Performed By: #### C BC #### [facility] [address] [address] [address] Nichelle John WBC 9.9 103/ul Normal 4.0-11.0 [facility] Comment on above: Performed By: #### C BC #### [facility] [address] [address] [address] Nichelle John Ambulatory Clinical Summaryo n 02-11-2021 Ambulatory Clinical Summary {[id number]}CD:[id number] Normal [facility] Ambulatory Clinical Summary {[id number]}CD:[id number] Normal [facility] Family Medicine Video Visit - Telehealthon 02-11-2021 Family Medicine Video Visit - Telehealth Chief Complaint Manager Research presents for poss pnemonia HPI Staff Mauro [...] or Covid exposure. Patient recently traveled to [place]. Patient denies nasal symptoms or sore throat. Patient states she has a history of pneumonia. No jvhh-aeo-alztmrf treatments used. Review of Systems Fatigue: no [...] interactive video communications from my office using [employer] due to the restrictions of the COVID-19 pandemic. No physical exam was conducted other than those areas of the body visible to telecommunications with the patient located at [address] [place] [address] [phone], with no one else in attendance. If [...] and she gets this frequently. States nothing fujx-upq-rlypmey will help. Discussed in order to differentiate viral versus bacterial illness and to ensure that she is stable given complaints of shortness of breath, I will need to assess her. Also given option of order for chest x-ray instead to check for pneumonia which she can have done in the hospital. Patient declines xray. [facility]. Patient states that if I will not prescribe her tx without further eval, she will just follow-up with her doctor instead. Again advised patient she would need further eval in order to determine proper tx. She again declines. Ordered: TELEHEALTH Office Visit Level 2 New 31874 2. Shortness of breath (R06.02: Shortness of breath) see above plan Ordered: TELEHEALTH Office Visit Level 2 New 03690 3. BMI 29.0-29.9,adult (Z68.29: Body mass index [...] 3008F TELEHEALTH Office Visit Level 2 New 14348 4. Cigarette nicotine dependence (F17.210: Nicotine dependence, [...] 2 N (more content not included)... Normal [facility] Comment on above: Result Comment: Elec [...] and skin patches. Some may be available nqvl-pvd-qzjffqr and others require a prescription. ? Antidepressant medicine helps people abstain from smoking, but how this works is unknown. This medicine is available by prescription. ? Nicotinic receptor partial agonist medicine simulates the effect of nicotine in your brain. This medicine is available by (more content not included)... Normal [facility] Vital Signs Date Time Vital Sign Value Performing Clinician Denia muro 05-18-2023 11:55-0500 Diastolic blood pressure 48 mm[Hg] DO Jose Luis Currie Work Phone: [facility] 05-18-2023 11:55-0500 Heart rate 80 /min DO Jose Luis Currie Work Phone: [facility] 05-18-2023 11:55-0500 Respiratory rate 16 /min DO Jose Luis Currie Work Phone: [facility] 05-18-2023 11:55-0500 SaO2% (BldA) [Mass fraction] 95 % DO Jose Luis Currie Work Phone: [facility] 05-18-2023 11:55-0500 Systolic blood pressure 138 mm[Hg] DO Jose Luis Currie Work Phone: [facility] 05-18-2023 09:57-0500 Body height 147.32 cm DO Jose Luis Currie Work Phone: [facility] 05-18-2023 09:57-0500 Body temperature 99 [degF] DO Jose Luis Currie Work Phone: [facility] 05-18-2023 09:57-0500 Body weight 67.13 kg DO Jose Luis Currie Work Phone: [facility] Encounters Encounter Date Encounter Type Care Provider Facility Start: 03-08-2024 End: 03-08-2024 ambulatory NICOLASA HDZ Not Available Start: 03-07-2024 End: 03-07-2024 ambulatory DO JOSE LUIS P HOUSE Facility:[facility] Start: 12-18-2023 End: 12-18-2023 ambulatory JOSE LUIS P HOUSE Facility:[facility] Start: 12-06-2023 End: 12-06-2023 ambulatory MANUELITO GARDNER Not Available Start: 09-30-2023 End: 09-30-2023 ambulatory JOSE LUIS P HOUSE Facility:[facility] Start: 09-02-2023 End: 09-02-2023 ambulatory JOSE LUIS CURRIE Facility:[facility] Start: 05-18-2023 End: 05-18-2023 ambulatory Jose Luis Currie Facility:[facility] Start: 05-18-2023 End: 05-18-2023 Admission to same day surgery center DO Jose Luis Currie Work Phone: [facility] Work Phone: Start: 05-18-2023 End: 05-18-2023 ambulatory DO Jose Luis Currie Work Phone: [facility] Work Phone: Start: 03-17-2023 End: 03-17-2023 ambulatory JOSE LUIS CURRIE Facility:[facility] Start: 04-16-2022 End: 04-17-[address] [...] Date Care Activity Detail Author Start: 05-18-2023 [facility] Patient Education Colon Polypectomy (DC) [facility] Work Phone: Payers Date Payer Category Payer Private Health Insurance [id number] 2023 Self-pay 2021 Private Health Insurance [id number] 1992 Unknown [id number] 2.16.84 0.1.390415.3.579.2.593 1992 Unknown [id number] 2.16.84 0.1.557619.3.579.2.593 1992 Unknown [id number] 2.16.84 0.1.625089.3.579.2.593 1992 Unknown [id number] 2.16.84 0.1.219425.3.579.2.593 1992 Unknown [id number] 2.16.84 0.1.091865.3.579.2.593 1992 Unknown [id number] 2.16.8 40.1.774585.3.579.2.718 1992 Unknown [id number] 2.16.8 40.1.626456.3.579.2.718 1992 Unknown [id number] 2.16.8 40.1.082567.3.579.2.718 1992 Unknown [id number] 2.16.8 40.1.981510.3.579.2.718 1992 Unknown [id number] 2.16.84 0.1.318059.3.579.2.1259 1992 Unknown [id number] 2.16.84 0.1.510244.3.579.2.1259 1959 Unknown [id number] Medicaid [facility] [id number] Unknown [id number] 2.16.8 40.1.678402.3.579.2.531 Social History Date Type Detail Facility Start: 05-18-2023 [facility] Start: 1990 Sex Assigned At Female F [facility] Goals Date Patient Goal Desired Activity /State Medication management note 12-18-2023 Note Date & Type Note Facility 12-18-2023 Note Entered by MARK CURRIE DO on December 18, 2023 06:28:32 EDT From: JOSE LUIS CURRIE DO To: [facility] #[id number] Sent: 12/18/2023 06:28:31 EDT Subject: Medication Management Submitted: Complete:esomeprazole (NexIUM 40 mg oral delayed release capsule) Signed by JOSE LUIS CURRIE DO 12/18/2023 06:28:00 EDT Approved with modifications: esomeprazole (ESOMEPRAZOLE MAG DR 40 MG CAP) take 1 capsule by mouth once daily Qty: 30 cap(s) Days Supply: 30 Refills: 2 Substitutions Allowed Route To Pharmacy - [id number] Patient matched by JOSE LUIS CURRIE DO on 12/18/2023 06:27:48 EDT From: [facility] #[id number] To: JOSE LUIS CURRIE DO Sent: December [...] Refills: 0 Substitutions Allowed Notes from Pharmacy: [facility] Procedure note 05-18-2023 Note Date & Type Note Facility 05-18-2023 Procedure note [facility] Evaluation note Note Date & Type Note Facility Evaluation note No assessment information availa [facility] Work Phone: History and physical note Note Date & Type Note Facility History and physical note Note Date/Time May 18, 2023 11:06am [facility] [address] [place] [address] Gastroenterology H&P Signed Patient: Mauro Damon MR#: [id number] : 1990 Acct:[id number] Age/Sex: 32 / F Adm Date: 3 Loc: Room: Type: [facility] Attending Dr: Bailee Edwards MD Copies to: [...] <Electronically signed by Bailee Edwards MD> 05/18/231105 [facility] Work Phone: Hospital Discharge instructions Note [...] pathology -Follow up with PCP. -Office number [phone]. [facility] Work Phone: Summary Purpose Family History [...] and content) DATE CREATED AUTHOR 03/07/2021 Haresh [facility] DATE CREATED AUTHOR AUTHOR'S ORGANIZ ATION 04/24/2022 [facility] DATE CREATED AUTHOR AUTHOR'S ORGANIZ ATION 08/14/2023 [facility] DATE CREATED AUTHOR AUTHOR'S ORGANIZ ATION 03/09/2024 [facility] DATE CREATED AUTHOR AUTHOR'S ORGANIZ ATION 03/10/2024 [facility] EPIC Care Teams [...] BE BASED ON THE PRIMARY CLINICAL RECORDS. [facility] [employer] provides no warranty or guarantee of the accuracy or completeness of information in this document.
== END 2024-03-22 10:55 | disposition home or self-care (01) ==
LOC: NOMS 10:54
PROVIDERS: Visit Provider Physician Assistant
DX: E28.2 Polycystic ovarian syndrome (principal)
CPT/HCPCS: 76830; 76856

== ENCOUNTER 2024-03-25 09:56 | Outpatient (OUT) | payer OTHER, SELFPAY ==
--- OUTSIDE RECORDS SUMMARY | 2024-03-25 09:58 | XMS_ITS | CCD ---
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 Name Role Phone HOUSE, DR AMAYA Admitting [...] Consulting Unavailable MD Jerry Imchristal Attending Provider HouseDO Amaya Primary Care Provider Jose Luis Currie Primary Care Unavailable Asaad, Bailee Attending Unavailable Asaad, Imad Admitting Unavailable DOLMACEY, MANUELITO R Attending Unavailable NICOLASA HDZ Attending Unavailable HOUSE, JOSE LUIS Castro Primary Care Unavailable HOUSE, JOSE LUIS Castro Primary Care Unavailable HOUSE, DO AMAYA P Attending Unavailable HOUSE, DO JOSE LUIS Castro Attending Unavailable HOUSE, JOSE LUIS Castro Primary Care Unavailable HOUSE, JOSE LUIS Castro Primary Care Unavailable HOUSE, DO JOSE LUIS Castro Attending Unavailable Medications Current Medications Medication Drug Class(es) Dates Sig (Normalized) Sig (Original) Norethindrone-Ethin Estradiol (1 source) Estrogen Start: 05-18-2023 take [id number] ug by mouth once daily Norethindrone-Ethi n Estradiol (Alyacen ()) 1-35 mg-mcg tablet Active 1 TAB PO [...] Test Name Value Interpretation Reference Range Facility Lab - Other Lab [facility] - Other Lab Results [id number]#[id number] [facility] Progress Note - Nurseon 02-26 Progress Note - Nurse Patient presents in [...] [Verified on: 03/08/2024 11:31 EDT] Yuki Sykes [facility] Outside Recordson 07-06-2023 Outside Records [id number]#[id number] 0OTGTIFF [facility] Coding Summaryon 06-29-2023 Coding Summary HTMLBase 64 VgkgdxddFBo1yMd+PGhlYWQ +CC3NSLStR86juXNepE2mJ4 NMTElOSywgQVBQTElOSyIgb yHvMJ9ctDAyILGh IC8+KW2eMKWuZijalJLiv9Q 3hFV9I00tfq7aICdxuSQ1IK MyQpFwosxjq9ezsYz7EJemY mluOyBt NDYxkM83EGD8rR84Ph91lKI lwIWob5hmkIn1LxOuJNZoZV V7vTruPPapj8TlMXLnT96yy GEvp2J6 ERXxfOrlqCCrDxWhnQA9aB1 qNNmadieou8vlrursGkt8nm 63dXYvm5O4jQB3K1HpaoT5X GJvbGQg LzoaaTKMaW8vjhwid7gygln cNkTqXPNxSDl4GNg2ZQIgjI bgTdHrIU77VPP2NXTfrwDsI 2FsLWFs eQqeKnI9s9U4El3VJ3CFTxg eE2FHHASFHEnrpZN+PC90cj 92G8UyLspjLup2ODMbAJE4q QV8sE2r VRGgTEqmj1D9wZO4A2DorkV gyd8vk6oeCOVxXJpaZ10kqR Kvz9G2PTYvbKT6UFGfcUyzR iBzaG93 Oyc+LGSawSgcn7UyDkzdw8j nh5oniUz8XuhbKCElghRlzW bgVEH9o4VvPe4qQDAukPQ6l DL4cK9k FwTkXhJ5PSxlA487JcKdeWJ tJmouL39oP7DepTO+PHRyPj z1ATTzrDpxDJ8wO2OuZYWyb mctbGVm kWjgGM5nIRVzhgzfSVWruH9 aLTPbV9c9IeCsKiG4WMixI7 XdOVOmhdzrMs83bJ9nRtYaP qV2DOha G2SuekC1OBUlvZMuADiyNVZ 0X14xr0S5JVZhLAYiZAV5xL I8sZ4umBkvkzlqsZNroLqqi mVydGlj JLzaKWtcO896TJGvtLmoLrU vZGluZyBEYXRlOiAgMDEvMD IvMjAyNDwvdGQ+NLAnCCF9e WxlPSAn vKNnXEvvQp1joDbcpOraTG8 pPNWeqshfAQXbaK5tKMIcdH ZmwSqfVL2lKBMjpaqiq521F iAxMHB0 AXPysPEuY2UdbR3aAzOtXZS dRCQkY2VjgFShDZegJ859RT vwZyJ7TVKnjsMtT7VoBKQnq WduOiB0 o8W7Tu5Ez7FgucdvD9IqySO mGwEfQmscMEg9R6TpMyxlcC I+CF67FRIeHE74SHm2NIU5g WxlPSdi EYBgR2FkiZ6vVnAyGXMjTTR kOyc+PHRhYmxlIHdpZHRoPS csBIKuArBrhXruRH3cSm0qE GVyLWNv yJcodUGbHmNmw3ojIYCoCGd gGI8frPipJ1BhiFH9GAUpz9 g6Pr60X02dW6UopPP+PGNvb WB0hBB3 eB6rJoSjUiD3YXgaX708SpT dwYZvXhdii6djr6hjfYr9Qt G1GAHcjdPphYseDXK9j2UsT i75C07j IHdpZHRoPSIxNSUiIHZhbGl coa1vsQ7rEv4+PBGpgIF6hK P1hX8cSgKtFiI1EWfoZ460H nRvcCIv Bqmzr1djx6derQg5XhRcAVB vheOpsPdtBPR6r4IiTs55Y1 WvpSmmv2HkFqi7qe59wJFcv 9H6nYC2 Q8YrWUSgntkcuJIjfKtzOI4 lNKAbcejiKWWyeE4pBQMpW3 p4TvUuTiT4DLbeS2VrygV8I GJvbGQg SEBjvQXNqH6wffbhu0nnmmb gRyLfEGCvMAf8NAx3NGYsdP asNcIkPPW7JgO6KCX1wQAll B8hkBsn ebgbyR6fZil+ZSZ0xZPanXL BFH4iYfbheGV+TMAlNII2eE hwQYuxDDUtpA2aMXHtO6h6L iAwLjA1 MYiiE8AatkD0XKYotZVaCKY fzJSQsI5gmevzf3yksoedSo VkINOeJGn5TCd2BHExmQfaT iBsZWZ0 IoJ9BIT0pXWslN7dzRzbvth yxI7oNpz+EpfgdTywCZP2HN z4P7RxUww8XDDqyYdoAM8am GFkZGlu Ou0bgHaywPceIE6dSAXajlq dj744VtKpa0qnNPHsuEHwNH azDXY7Z06ok3U4UJVdBUDvR IV4zOJ3 hY8grPdcdyvwjGInaAoencG mzOoxFNfdZMmjA027YMDvlC fpBjIwWWg3Q0DdHsd0FISoj PmgMH6x yFZdYTbhLh1oaTgisOkmTI1 cGKSiboqwi801EfLgq3ntJJ BqzKVmPBwrCGC5D11cn4T8N CMwMDAw HMQ0tHJ4uU1ioYvjnlszcZC mdDsgdmVydGljYWwtYWxpZ2 69VKQekIbzFwJjuIw3Z8RnK zk1YZGl nIitRU6yzIIdQQwlLm7zdQs juAjrMC9zPGMdszfef819Ms Wmg2jeDHMsxANmBJkqUUQ4L 56zb2B7 GTNlCVNbHHW5zEZ7hH3obQn nbjogbGVmdDsgdmVydGljYW kfURwxK013VSDneHotJdCjb GllbnQg JNcfOFx2R6SzHtvseVM+PC9 3HWJdDA66vEXhuTBtk4ngrR h4XgBcEARrWTL2lOkzIPjdt 3JkZXIt O31oiQWzk8I1QFAprBpojAS nJkSsyHZ1eJ1pFWucgwsed1 flthinQmwrt6iamr35vX18A 29sIHdp ZHRoPSIzMCUiIHZhbGlnbj0 pdX5oSy0+VFLpsOL6dAK4hO 7eUYCtCwH8AHqlX894GlYls CIvPjxj w2sek7wlbOv4WuU6HRYeguE eyPxxDPO8m3KrAh98U34nLY dpZHRoPSIyMCUiIHZhbGlnb p2iuL9y Ii8+UEOktFA7jOO4hY9tOaU iJuV8YQkdC023GnUqdMJlXs meB53nK7XzlDR+CSVjBpb5B CBzdHls LR4uwIPjESdmLr2iXAH6PeC bOkIuGKpsL4CeOVIeucmgbt khzCF5UVRxVAYaoA50Vz6fr DogMTBw eEAAcW7ogdkwz8hyphnyJfK uOFEhFAp6QBe1USBsdHbbKg OdKVY1OpA8PXX9cJFpdR4yj Glnbjog cA9qK2EdPMQgsvyqUe66qC7 eQeMmNcE3DZabQpe+SFVHSE VTLCBLQVlMRUlHSCBNQVJJR TwvdGQ+ RGLyJEX4yWncDCcwJRXqsM8 tSPSyX0w2DhRcTkF4ELqsJ1 NjKWMbfcnqDg93eD1sKyGnW jP3ZTmj C8VtbjQ4KKDavIOyQUslPCM 5R33ks7X2CMVrFRJrWIS3oL H0cV8wgTlxntmxfOHvkOcmf mVydGlj YZygIKrvX354RJRuhFutTpQ 4JfG4TqT6NKS0M8SfVcy9YG RjwZwfEA5cfUEyARomPp0dc WdodDog CD6fZYGnfsfcLCOviJ5aKMB xyNNtdSfiVK4wBHPyaqdwv3 41VpHbNCU7VGXfiRDrP6Whz G2xLvKo FXSfFACpM2TbpUEwJKtkG24 5TZnuMuR1OUHsluFsI1HxCO AaaHyuDlJ2f1B7Ri8eWHUVW WFyczwv dGQ+HEZmLMN3tUbyOMnsXSZ zgN5oQUJwG5k1SrQhTvM6IA ytR6OxPMIlubxyNf72dO0dN iAwLjA1 NOmlC3AjwuB7SPXbvRLkRVz uFJA6I51zd8N5SNSzHIZsNU V0dNX9cA0glBuwaysofRNhm DsgdmVy jVpfRFjlDZclD533KYRxmPe nPkZFTUFMRTwvdGQ+PHRkIH O0bXdoUVvoTJLvjJ4aDERuU 6v1ByGz ZwF0FAvxW5NbGNHnuguuXs0 0iC5sMpJfKlC9YGxgP3Yxqy J3VIRikXTqUSysCJV5S28ko 5D9JZDx TULxGHH8zZU9jO8gkYqjhke gbGVmdDsgdmVydGljYWwtYW kdC678UJLclMibWb7CSC22F U00M2Ap PjwvdGFibGU+PHRhYmxlIHd pZHRoPScxMDAlJyBzdHlsZT 7vTj9lSMMdASNmyAleoHEqI zVmm2ry XGRhPFjnMN1ydCwjY4HoqPH 7ZACwt2g6Zd10G25yP7CzhK A+ZCIlvTY6fLJ6wB0jEvGsM wE0YJaz T636BjLkbETcEnioa9vej7m beSg5EtEtNERdieOnkOyvLM A6n9RhXd39A69eFJxnYWPsF SIyMCUi NNZrpXpaej8cfN2zKe0+PGN ukUO8xQD3mP8rCxAoAhV0SK roK666AaSynMZjMqsoV54mV 3JvdXA+ UVQuFit2KPTonClhIG8hcRR mIQgxJn3mKYV4YcYdZiHqKW wgF0HgGNNmudiyperqpYL8G DAuMDUw yZ04Hh1hmAyyLf3gKCBkYKA 9AQGxeTHnS8LtoR8eWsAkQF CeWUDpH8YdvYWlAExxB709G GxlZnQ7 ADOujtRhQ0JtJNSglEmcZuX 9l8J4Qa3JiDlsjVQaDC8lGs CzTIk4C9BmAtb3VTAqkUbsK M5ffAFv WKmcUv6rrFuadLvfOY6vXKG aziwbf072IiDqz5tsTUWjkW FeUKspXMI1X73yw5Z5WLSmB DAwMDA7 zKJ5rQ4mcJtumqeowHTguOc bhrSrfLefWOtwWXtfO870YL NppScqOxJLQyx1V1UtKmf1Y CBzdHls UR1vjVPfJFojUw7rgJjmjQu fJH7qWNJezdsic745KcExq2 xgRHDnqZVrUIorEJF0H33po 3D2XHNy HKXyUAX9vMF3kW3qcBbvpqs gbGVmdDsgdmVydGljYWwtYW hoV638YXVmyGibWe9VMtg1F 3MeIbp5 YOPgqXowFP2sgBWsRNziKi4 cmNrkjQftBF1kEYTvvbxhu8 76JtCnt1rhAEXweNHsPYyxO WB1N50g j4I8BSQzWLXkCIV5jOZ3dF5 hbGlnbjogbGVmdDsgdmVydG kiYItpBOcwH985EFUnlQxiR lBheWVy OjwvdGQ+IU28xw91T8GpDci gTyo6ZYYuLTY1jVT3wP5nNQ GwPUahd4C3dMA9T5OidgVzq u0vs0qs YXB (more content not included)... Normal [facility] HCG ( test) IAaguila kessler Ql (U)Ordered By: Bailee Edwards on 05-18-2023 HCG ( test) Ql (U) Negative [facility] HCG,Urineon 05-18-2023 Beta HCG ( test) Ql (U) Negative Normal [facility] Comment on above: Result Comment: PERF ORMED BY: [address] [place] [address] PATHOLOGIST CARDIAC SPECIALIST MANJEET NOLAN M.D. Performed By: #### U HCG #### [address] Deni 05-18-2023 L --- Specimen: [id number] Received: 05/18/23 Status: BETTY Mayberry Num: [id number] Spec Type: Surgical Subm Dr: Bailee Edwards MD Tissues: A Colon Biopsy (SIGMOID POLYP) Procedures: HE/2, Gross/Micro L4 Age/ Patient Sex Location Account Attending Physician Mauro Damon 32/F [id number] Bailee Edwards MD SPEC NUM: [id number] RECD: 05/18/23 STATUS: BETTY MAYBERRY NUM: [id number] SHY: 05/18/23- SUBM DR: Bailee Edwards MD ENTERED: 05/18/[address] [facility] DR: SPEC TYPE: Surgical DEPT: S ORDERED: AUDREY/David, Gross/Micro L4 ORDERED: AUDREY/David, Gross/Micro L4 Pathological Diagnosis Sigmoid polyp biopsy: [...] Description Microscopic examinations are performed CPT Codes 22332 Specimen: [id number] Received: 05/18/23 Status: BETTY Mayberry Num: [id number] Spec Type: Surgical Subm Dr: Bailee Edwards MD Tissues: A Colon Biopsy (SIGMOID POLYP) Procedures: AUDREY/David, Gross/Micro L4 Patient: MarisolMauro [id number] (Continued) Signed (signature on file) Iman John MD 05/20/[address] [facility] IMMUNOGLOBULINS IGA/IGM/IGG/ IGE QUANTITAon 04-24-2022 Immunoglobulin A, Qn, Serum 109 mg/dL Normal 87-352 [facility] Comment on above: Result Comment: Perf ormed at: CB Performed By: #### I MMUNGF #### [facility] [address] [place] [address] Dr. Nichelle John Immunoglobulin E, Total 37 IU/mL Normal 6-495 [facility] Comment on above: Result Comment: Perf ormed at: BN Performed By: #### I MMUNGF #### [facility] [address] [place] [address] Dr. Nichelle John Immunoglobulin G, Qn, Serum 499 mg/dL Critically low [phone] [facility] Comment on above: Result Comment: Perf ormed at: CB Performed By: #### I MMUNGF #### [facility] [address] [place] [address] Dr. Nichelle John Immunoglobulin M, Qn, Serum 54 mg/dL Normal 26-217 [facility] Comment on above: Result Comment: Perf ormed at: CB Performed By: #### I MMUNGF #### [facility] [address] [place] [address] Dr. Nichelle John CBC AUTO DIFFon 04-16-2022 BASO # 0.1 103/ul Normal 0.0-0.1 [facility] Comment on above: Performed By: #### C BC #### [facility] [address] [place], [place] [address] Dr. Nichelle John Basophils/100 WBC (Bld) 0.4 % Normal 0.2-2.0 [facility] Comment on above: Performed By: #### C BC #### [facility] [address] [place] [address] Dr. Nichelle John EO # 0.2 103/ul Normal 0.0-0.7 [facility] Comment on above: Performed By: #### C BC #### [facility] [address] [place] [address] Dr. Nichelle John Eosinophils/100 WBC (Bld) 1.5 % Normal 0.9-7.0 [facility] Comment on above: Performed By: #### C BC #### [facility] [address] [place] [address] Dr. Nichelle John Erythrocyte distribution width (RBC) [Ratio] 12.6 % Normal 11.0-15.0 [facility] Comment on above: Performed By: #### C BC #### [facility] [address] [place] [address] Dr. Nichelle John Hematocrit (Bld) [Volume fraction] 39.4 % Normal 36.0-48.0 [facility] Comment on above: Performed By: #### C BC #### [facility] [address] [place] [address] Dr. Nichelle John Hemoglobin (Bld) [Mass/Vol] 13.2 g/dL Normal 12.0-16.0 [facility] Comment on above: Performed By: #### C BC #### [facility] [address] [place] [address] Dr. Nichelle John IG # 0.05 10e3/ul Critically high 0.00-0.03 [facility] Comment on above: Performed By: #### C BC #### [facility] [address] [place] [address] Dr. Nichelle John IG % 0.4 % Normal 0.0-0.5 [facility] Comment on above: Performed By: #### C BC #### [facility] [address] [place] [address] Dr. Nichelle John LYMPH # 3.0 103/ul Normal 1.2-3.8 [facility] Comment on above: Performed By: #### C BC #### [facility] [address] [place] [address] Dr. Nichelle John Lymphocytes/100 WBC (Bld) 26.0 % Normal 20.5-60.0 [facility] Comment on above: Performed By: #### C BC #### [facility] [address] [place] [address] Dr. Nichelle John MANUAL DIFF REQ NO Normal [facility] Comment on above: Performed By: #### C BC #### [facility] [address] [place] [address] Dr. Nichelle John MCH (RBC) [Entitic mass] 31.4 pg Normal 26.7-34.0 [facility] Comment on above: Performed By: #### C BC #### [facility] [address] [place] [address] Dr. Nichelle John MCHC (RBC) [Mass/Vol] 33.5 g/dL Normal 29.9-35.2 [facility] Comment on above: Performed By: #### C BC #### [facility] [address] [place] [address] Dr. Nichelle John MCV (RBC) [Entitic vol] 93.6 fL Normal 81.0-99.0 [facility] Comment on above: Performed By: #### C BC #### [facility] [address] [place] [address] Dr. Nichelle John MONO # 0.7 103/ul Normal 0.3-0.8 [facility] Comment on above: Performed By: #### C BC #### [facility] [address] [place] [address] Dr. Nichelle John Monocytes/100 WBC (Bld) 6.1 % Normal 1.7-12.0 [facility] Comment on above: Performed By: #### C BC #### [facility] [address] [place] [address] Dr. Nichelle John NEUT # 7.5 103/ul Critically high 1.4-6.5 [facility] Comment on above: Performed By: #### C BC #### [facility] [address] [place] [address] Dr. Nichelle John Neutrophils/100 WBC (Bld) 65.6 % Normal 43.0-75.0 [facility] Comment on above: Performed By: #### C BC #### [facility] [address] [place] [address] Dr. Nichelle John Platelet mean volume (Bld) [Entitic vol] 9.6 fL Normal 9.5-13.5 [facility] Comment on above: Performed By: #### C BC #### [facility] [address] [place] [address] Dr. Nichelle John PLT 369 103/ul Normal 150-450 [facility] Comment on above: Performed By: #### C BC #### [facility] [address] [place] [address] Dr. Nichelle John RBC 4.21 106/ul Normal 4.20-5.40 [facility] Comment on above: Performed By: #### C BC #### [facility] [address] [place], [place] [address] Dr. Nichelle John WBC 11.4 103/ul Critically high 4.0-11.0 [facility] Comment on above: Performed By: #### C BC #### [facility] [address] [place] [address] Dr. Nichelle John XR CHEST 2 Von [...] authenticated by: GONZALO MEDELLIN Date: 2022-04-16 16:35 [facility] PAP ACOG PANEL 2: 23 to 31on 03-05-2022 . . Normal [facility] Comment on above: Performed By: #### 4 [id number] #### [facility] [address] [place] [address] Dr. Nichelle John Age Gdln ACOG Testing - [facility] Comment on above: Performed By: #### 4 [id number] #### [facility] [address] [place] [address] Dr. Nichelle John DIAGNOSIS: Comment [facility] Comment on above: Result Comment: NEGA TIVE FOR INTRAEPITHELIAL LESION OR MALIGNANCY. Performed By: #### 4 [id number] #### [facility] [address] [place] [address] Dr. Nichelle John Methodology: Comment [facility] Comment on above: Result Comment: This liquid based ThinPrep(R) pap test was screened with the use of an image guided system. Performed By: #### 4 [id number] #### [facility] [address] [place] [address] Dr. Nichelle John Note: Comment [facility] Comment on above: Result Comment: The Pap smear is a screening test designed to aid in the detection of premalignant and malignant conditions of the uterine cervix. It is not a diagnostic procedure and should not be used as the sole means of detecting cervical cancer. Both false-positive and false-negative reports do occur. . Performed By: #### 4 [id number] #### [facility] [address] [place] [address] Dr. Nichelle John Performed by: Comment Normal [facility] Comment on above: Result Comment: Vida Rolon Magistrate Judge (ASCP) Performed By: #### 4 [id number] #### [facility] [address] [place] [address] Dr. Nichelle John Reflex Criteria: Comment [facility] Comment on above: Result Comment: The HPV DNA reflex criteria were not met with this specimen result therefore, no HPV testing was performed. . Performed By: #### 4 [id number] #### [facility] [address], [place] [address] Dr. Nichelle John Specimen adequacy: Comment Normal [facility] Comment on above: Result Comment: Sati sfactory for evaluation. Endocervical and/or squamous metaplastic cells (endocervical component) are present. Performed By: #### 4 [id number] #### [facility] [address], [place] [address] Dr. Nichelle John [id number] DNA ANAL YSISon 01-15-2022 AAT, DNA Analysis Comment Normal [facility] Comment on above: Result Comment: Resu lt: c.1096 G>A (p.[id number]), Z allele - Not detected c.863 A>T (p.Qkp576Uep), S allele - Not detected Not associated with increased risk of developing clinically relevant symptoms of alpha-1 antitrypsin deficiency. See Additional Clinical Information and Comments. Performed By: #### A LPHGEN #### [facility] [address], [place] [address] Dr. Nichelle John Additional Information: Comment Normal [facility] Comment on above: Result Comment: Anish tional Clinical Information: Alpha-1 antitrypsin deficiency is an [...] health care providers to discuss results at [phone] (0110). . Test Details: Two variants analyzed: c.1096 G>A (p.Vll595Aff), commonly referred to as the Z allele or PI*Z c.863 A>T (p.Uwr291Vsn), commonly referred to as the S allele [...] developed and its performance characteristics determined by [employer]. It has not been cleared or approved by the Food and Drug Administration. . References: Princess RA, Abby G, aKmini ML, Aramis M, Yusuf CE, K, Nany DK, Joellen SL, Shellie JM, Tiffanie MESSINA, Mellissa C, Cody J. The Diagnosis and Management of Alpha-1 Antitrypsin Deficiency in the Adult. Chronic Obstr Pulm Dis. 2016 Dec 01;3(3):668-682. doi: 10.49055/jcopdf.3..0182. PMID: 94192248; PMCID: RZH4314704. Tiffanie MESSINA, Laura V, Darline GALLOWAY. Alpha-1 Antitrypsin Deficiency. 2005Apr 23 [Updated 2019November 15]. In: Cleve MP, She VIRK, Mabel JACK, et al., editors. Deric(R) [Internet]. [place] ([place]): [facility]; 7207-2636. Available from: https://www.ncbi.nlm.nih.gov/books/PNT8358/ Performed By: #### A LPHGEN #### [facility] [address] [place] [address] Dr. Nichelle John Electronically Signed By Comment Normal [facility] Comment on above: Result Comment: Severo Duarte, Ph.D., [facility] Performed By: #### A LPHGEN #### [facility] [address] [place] [address] Dr. Nichelle John CBC AUTO DIFFon 01-05-2022 BASO # 0.1 103/ul Normal 0.0-0.1 [facility] Comment on above: Performed By: #### C BC #### [facility] [address] [place] [address] Dr. Nichelle John Basophils/100 WBC (Bld) 0.6 % Normal 0.2-2.0 [facility] Comment on above: Performed By: #### C BC #### [facility] [address] [place] [address] Dr. Nichelle John EO # 0.1 103/ul Normal 0.0-0.7 [facility] Comment on above: Performed By: #### C BC #### [facility] [address] [place] [address] Dr. Nichelle John Eosinophils/100 WBC (Bld) 1.3 % Normal 0.9-7.0 [facility] Comment on above: Performed By: #### C BC #### [facility] [address] [place] [address] Dr. Nichelle John Erythrocyte distribution width (RBC) [Ratio] 12.9 % Normal 11.0-15.0 [facility] Comment on above: Performed By: #### C BC #### [facility] [address] [place] [address] Dr. Nichelle John Hematocrit (Bld) [Volume fraction] 39.5 % Normal 36.0-48.0 [facility] Comment on above: Performed By: #### C BC #### [facility] [address] [place] [address] Dr. Nichelle John Hemoglobin (Bld) [Mass/Vol] 13.3 g/dL Normal 12.0-16.0 [facility] Comment on above: Performed By: #### C BC #### [facility] [address] [place] [address] Dr. Nichelle John IG # 0.02 10e3/ul Normal 0.00-0.03 [facility] Comment on above: Performed By: #### C BC #### [facility] [address] [place] [address] Dr. Nichelle John IG % 0.2 % Normal 0.0-0.5 [facility] Comment on above: Performed By: #### C BC #### [facility] [address] [place] [address] Dr. Nichelle John LYMPH # 2.7 103/ul Normal 1.2-3.8 [facility] Comment on above: Performed By: #### C BC #### [facility] [address] [place] [address] Dr. Nichelle John Lymphocytes/100 WBC (Bld) 27.3 % Normal 20.5-60.0 [facility] Comment on above: Performed By: #### C BC #### [facility] [address] [place] [address] Dr. Nichelle John MANUAL DIFF REQ NO Normal [facility] Comment on above: Performed By: #### C BC #### [facility] [address] [place] [address] Dr. Nichelle John MCH (RBC) [Entitic mass] 31.2 pg Normal 26.7-34.0 [facility] Comment on above: Performed By: #### C BC #### [facility] [address] [place] [address] Dr. Nichelle John MCHC (RBC) [Mass/Vol] 33.7 g/dL Normal 29.9-35.2 [facility] Comment on above: Performed By: #### C BC #### [facility] [address] [place] [address] Dr. Nichelle John MCV (RBC) [Entitic vol] 92.7 fL Normal 81.0-99.0 [facility] Comment on above: Performed By: #### C BC #### [facility] [address] [address] [address] Nichelle John MONO # 0.6 103/ul Normal 0.3-0.8 [facility] Comment on above: Performed By: #### C BC #### [facility] [address] [place] [address] Dr. Nichelle John Monocytes/100 WBC (Bld) 6.1 % Normal 1.7-12.0 [facility] Comment on above: Performed By: #### C BC #### [facility] [address] [place] [address] Dr. Nicehlle John NEUT # 6.4 103/ul Normal 1.4-6.5 [facility] Comment on above: Performed By: #### C BC #### [facility] [address] [place] [address] Dr. Nichelle John Neutrophils/100 WBC (Bld) 64.5 % Normal 43.0-75.0 [facility] Comment on above: Performed By: #### C BC #### [facility] [address] [place] [address] Dr. Nichelle John Platelet mean volume (Bld) [Entitic vol] 9.1 fL Critically low 9.5-13.5 [facility] Comment on above: Performed By: #### C BC #### [facility] [address] [place] [address] Dr. Nichelle John PLT 346 103/ul Normal 150-450 [facility] Comment on above: Performed By: #### C BC #### [facility] [address] [place] [address] Dr. Nichelle John RBC 4.26 106/ul Normal 4.20-5.40 [facility] Comment on above: Performed By: #### C BC #### [facility] [address] [place] [address] Dr. Nichelle John WBC 9.9 103/ul Normal 4.0-11.0 [facility] Comment on above: Performed By: #### C BC #### [facility] [address] [address] [address] 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 Patient recently traveled to [place]. Patient denies nasal symptoms or sore throat. Patient states she has a history of pneumonia. No ytdf-vzr-xangsxh treatments used. Review of Systems Fatigue: no Body aches: no Chills: no Fever: no ALBETR: no Nasal congestion: no Rhinorrhea: no Cough: [...] interactive video communications from my office using [employer] due to the restrictions of the COVID-19 pandemic. No physical exam was conducted other than those areas of the body visible to telecommunications with the patient located at [address] [facility] [id number], with no one else in attendance. If [...] and she gets this frequently. States nothing eegd-snh-qqtyvfk will help. Discussed in order to differentiate viral versus bacterial illness and to ensure that she is stable given complaints of shortness of breath, I will need to assess her. Also given option of order for chest x-ray instead to check for pneumonia which she can have done in the hospital. Patient declines xray. Patient refuses to return to convenient care for further assessment. Patient states that if I will not prescribe her tx without further eval, she will just follow-up with her doctor instead. Again advised patient she would need further eval in order to determine proper tx. She again declines. Ordered: TELEHEALTH Office Visit Level 2 New 32423 2. Shortness of breath (R06.02: Shortness of breath) see above plan Ordered: TELEHEALTH Office Visit Level 2 New 90460 3. BMI 29.0-29.9,adult (Z68.29: Body mass index [...] 3008F TELEHEALTH Office Visit Level 2 New 60955 4. Cigarette nicotine dependence (F17.210: Nicotine dependence, [...] 2 N (more content not included)... Normal [facility] Comment on above: Result Comment: Elec [...] and skin patches. Some may be available yfxv-zym-exiazhw and others require a prescription. ? Antidepressant medicine helps people abstain from smoking, but how this works is unknown. This medicine is available by prescription. ? Nicotinic receptor partial agonist medicine simulates the effect of nicotine in your brain. This medicine is available by (more content not included)... Normal [facility] Vital Signs Date Time Vital Sign Value Performing Clinician Denia muro 05-18-2023 11:55-0500 Diastolic blood pressure 48 mm[Hg] DO [employer] Work Phone: [facility] 05-18-2023 11:55-0500 Heart rate 80 /min DO [employer] Work Phone: [facility] 05-18-2023 11:55-0500 Respiratory rate 16 /min DO [employer] Work Phone: [facility] 05-18-2023 11:55-0500 SaO2% (BldA) [Mass fraction] 95 % DO [employer] Work Phone: [facility] 11-21-2023 11:55-0500 Systolic blood pressure 138 mm[Hg] DO Jose Luis Currie Work Phone: [facility] 05-18-2023 09:57-0500 Body height 147.32 cm DO Jose Luis Currie Work Phone: [facility] 05-18-2023 09:57-0500 Body temperature 99 [degF] DO Jose Luis Currie Work Phone: [facility] 05-18-2023 09:57-0500 Body weight 67.13 kg DO Jose Luis Currie Work Phone: [facility] Encounters Encounter Date Encounter Type Care Provider Facility Start: 03-08-2024 End: 03-08-2024 ambulatory NICOLASA HDZ Not Available Start: 03-07-2024 End: 03-07-2024 ambulatory JOSE LUIS CURRIE Facility:[facility] Start: 12-18-2023 End: 12-18-2023 ambulatory JOSE LUIS CURRIE Facility:[facility] Start: 12-06-2023 End: 12-06-2023 ambulatory MANUELITO GARDNER Not Available Start: 09-30-2023 End: 09-30-2023 ambulatory JOSE LUIS CURRIE Facility:[facility] Start: 09-02-2023 End: 09-02-2023 ambulatory DO JOSE LUIS CURRIE Facility:[facility] Start: 05-18-2023 End: 05-18-2023 ambulatory Jose Luis Currie Facility:[facility] Start: 05-18-2023 End: 05-18-2023 Admission to same day surgery center DO Jose Luis Currie Work Phone: [facility] Work Phone: Start: 05-18-2023 End: 05-18-2023 ambulatory DO Jose Luis Currie Work Phone: [facility] Work Phone: Start: 04-16-2022 End: 04-17-[address] JOSE [...] Date Care Activity Detail Author Start: 05-18-2023 [facility] Patient Education Colon Polypectomy (DC) [facility] Work Phone: Payers Date Payer Category Payer Private Health Insurance [id number] 2023 Self-pay 2022 Private Health Insurance [id number] 1990 Unknown [id number] 2.16.84 [id number] 1992 Unknown [id number] 2.16.84 [id number] 1992 Unknown [id number] 2.16.84 0.1.318330.3.579.2.593 1992 Unknown [id number] 2.16.84 0.1.548912.3.579.2.593 1992 Unknown [id number] 2.16.84 0.1.397013.3.579.2.593 1992 Unknown [id number] 2.16.84 0.1.542402.3.579.2.1259 1992 Unknown [id number] 2.16.84 0.1.476487.3.579.2.1259 1992 Unknown [id number] 2.16.8 40.1.374066.3.579.2.718 1992 Unknown [id number] 2.16.8 40.1.653330.3.579.2.718 1992 Unknown [id number] 2.16.8 [id number] 1959 Unknown [id number] Medicaid [employer] [id number] Unknown [id number] 16.8 [id number] Social History Date Type Detail Facility Start: 05-18-2023 [facility] Start: 1990 Sex Assigned At Female F [facility] Goals Date Patient Goal Desired Activity /State Medication management note 12-18-2023 Note Date & Type Note Facility 12-18-2023 Note Entered by MARK CURRIE DO on December 18, 2023 06:28:32 EDT From: JOSE LUIS CURRIE DO To: [id number] Sent: 12/18/2023 06:28:31 EDT Subject: Medication Management Submitted: Complete:esomeprazole (NexIUM 40 mg oral delayed release capsule) Signed by JOSE LUIS CURRIE DO 12/18/2023 06:28:00 EDT Approved with modifications: esomeprazole (ESOMEPRAZOLE MAG DR 40 MG CAP) take 1 capsule by mouth once daily Qty: 30 cap(s) Days Supply: 30 Refills: 2 Substitutions Allowed Route To [facility]acy - [id number] Patient matched by JOSE LUIS CURRIE DO on 12/18/2023 06:27:48 EDT From: [facility][id number] To: JOSE LUIS CURRIE DO Sent: December [...] Refills: 0 Substitutions Allowed Notes from Pharmacy: [facility] Procedure note 05-18-2023 Note Date & Type Note Facility 05-18-2023 Procedure note [facility] Evaluation note Note Date & Type Note Facility Evaluation note No assessment information availa ble [facility] Work Phone: History and physical note Note Date & Type Note Facility History and physical note Note Date/Time May 18, 2023 11:06am [facility] [address] [place] [address] Gastroenterology H&P Signed Patient: Mauro Damon MR#: [id number] : 1990 Acct:[id number] Age/Sex: 32 / F Adm Date: 3 Loc: Room: Type: [facility] Attending Dr: Bailee Edwards MD Copies to: DO Bailee Gonzalez MD~ Date of Service: 05/18/2023 HISTORY & [...] Edwards M.D. Documented By: Bailee Edwards MD 05/18/23 110 Signed By: <Electronically signed by Bailee Edwards MD> 05/18/23 110 [facility] Work Phone: Hospital Discharge instructions Note [...] NOT operate machinery such as power tools, [employer] mowers, snow blowers, sewing machines, etc. for [...] pathology -Follow up with PCP. -Office number [phone]. [facility] Work Phone: Summary Purpose Family History [...] section and content) DATE CREATED AUTHOR 03/07/2021 Hutson Johnston [facility] DATE CREATED AUTHOR AUTHOR'S ORGANIZ ATION 04/24/2022 [facility] DATE CREATED AUTHOR AUTHOR'S ORGANIZ ATION 08/14/2023 [facility] DATE CREATED AUTHOR AUTHOR'S ORGANIZ ATION 03/10/2024 [facility] DATE CREATED AUTHOR AUTHOR'S ORGANIZ ATION 03/23/2024 [facility] Care Teams (unrecognized sec tion and content) Team Status: Active Member Role Status Dates Jose Luis Currie DO Primary Care Provider Active Team Status: Inactive Member Role Status Dates Bailee Edwards MD Attending Provider Active Jose Luis Currie DO Primary Care Provider Active FOR RECORDS [...] BE BASED ON THE PRIMARY CLINICAL RECORDS. [employer] provides no warranty or guarantee of the accuracy or completeness of information in this document.
[2024-03-25 11:25] LABS: Thyroid Stimulating Hormone 2.127 uIU/mL (0.358-3.740)
== END 2024-03-25 09:57 | disposition home or self-care (01) ==
LOC: LAB 09:56
PROVIDERS: Visit Provider Family Medicine
DX: R63.5 Abnormal weight gain (principal)
CPT/HCPCS: 36415; 84436; 84443

== ENCOUNTER 2025-01-27 07:04 | Emergency (ER) | payer BC, SELFPAY ==
[2025-01-27 07:07] VITALS: BP 129/96; PULSE 78; TEMP 36.8; O2SAT 98; BMI 35.2
--- OUTSIDE RECORDS SUMMARY | 2025-01-27 07:24 | XMS_ITS | CCD ---
Demographics Address [address] [place] [address] Home Phone Preferred Language en Marital Status Single Sabianist Affiliation Unknown Race White Ethnic Group Not or Lati no Author Organization [facility] Care Team Providers Care Weather Forecaster Name Role Phone HOUSE, DR LUNA Admitting Unavailable HOUSE, DR LUNA Referring Unavailable HOUSE, DR LUNA Attending Unavailable HOUSE, DR LUNA Consulting Unavailable HOUSE, DR LUNA Primary Care Unavailable HOUSE, DR LUNA Admitting Unavailable HOUSE, DR LUNA Attending Unavailable HOUSE, DR LUNA Primary Care Unavailable HOUSE, DR LUNA Admitting Unavailable HOUSE, DR LUNA Attending Unavailable HOUSE, DR LUNA Consulting Unavailable HOUSE, DR LUNA Primary Care Unavailable HOUSE, DR LUNA Primary Care Unavailable KARASIK, DR KEENE Attending Unavailable KARASIK, DR KEENE Consulting Unavailable KARASIK, DR KEENE Admitting Unavailable HOUSE, DR LUNA Primary Care Unavailable SAMSA, JASBIR Attending Unavailable SAMSA, JASBIR Admitting Unavailable SAMSA, JASBIR Consulting Unavailable NEFCY, GONZALO Consulting Unavailable MD Jerry Imchristal Attending Provider [phone] DO Jose Luis Currie Primary Care Provider Jose Luis Currie Primary Care Unavailable Asaad, Bailee Attending Unavailable Asaad, Imchristal Admitting Unavailable MANUELITO GARDNER Attending Unavailable NICOLASA EDWARDS Attending Unavailable Jose Luis Currie MD Primary Care Provider JOSE LUIS CURRIE Primary Care Unavailable HOUSE, DO JOSEL UIS Castro Attending Unavailable HOUSE, JOSE LUIS Castro Primary Care Unavailable HOUSE, DO JOSE LUIS Castro Attending Unavailable HOUSE, DO JOSE LUIS Castro Attending Unavailable HOUSE, JOSE LUIS Castro Primary Care Unavailable HOUSE, JOSE LUIS Castro Primary Care Unavailable HOUSE, DO JOSE LUIS Castro Attending Unavailable Damon Navarro Attending Unavailable HOUSE, JOSE LUIS Castro Primary Care Unavailable Medications Current Medications Medication Drug Class(es) Dates Sig (Normalized) Sig (Original) esomeprazole 40 mg delayed release oral capsule (5 sources) Proton Pump Inhibitor Start: 03-17-2023 esomeprazole (NexIUM) [address] capsule 40 mg 03/17/2023 Active ethinyl estradiol 0.035 mg / norethindrone acetate 1 mg oral tablet (6 sources) Estrogen Start: 03-01-2024 norethindrone-ethin yl estradiol (Alyacen ) 1-35 MG-MCG tablet Indications: control counseling Take 1 tablet by mouth Daily 28 tablet 12 03/01/2024 Active Start: 05-18-2023 take [id number] 2857 ug by mouth once daily Norethindrone-Ethin Estradiol (Alyacen 35 (28)) 1-35 mg-mcg tablet Active 1 TAB PO Daily May 18, 2023 12:00am 24 hr metFORMIN hydrochloride 500 mg extended release oral tablet (2 sources) Biguanide Start: 03-08-2024 End: 04-07-2024 take 1 tablet by mouth every twenty-four hours at mealtime metFORMIN XR (Glucophage-XR) 500 MG 24 hr tablet Indications: Amenorrhea Take 1 tablet (500 mg) by mouth in the evening. Take with meals Do not crush, chew, or split. 30 tablet 03/08/2024 04/07/2024 Active SUMAtriptan 100 mg oral tablet (5 sources) Serotonin-1b and Serotonin-1d Receptor Agonist Start: 03-08-2023 SUMAtriptan (Imitrex) 100 MG tablet 0 Refill(s) 03/08/2023 Active Completed/Discontinued Medications Medication Drug Class(es) Dates Sig (Normalized) Sig (Original) eletriptan 40 mg oral tablet (3 sources) Serotonin-1b and Serotonin-1d Receptor Agonist Start: 09-02-19 End: 03-08-20 eletriptan (Relpax) 40 MG tablet 40 mg 09/02/2023 03/08/2024 Discontinued 1 ml medroxyPROGESTERone acetate 150 mg/ml injection (3 sources) Progestin End: 03-08-20 inject 1 mL by intramuscular injection every three months medroxyPROGESTERone (Depo-Provera) 150 MG/ML injection inject 1 milliliter (150MG) by intramuscular route every 3 months Intramuscular 03/08/2024 Discontinued phentermine hydrochloride 37.5 mg oral capsule (3 sources) Sympathomimetic Amine Anorectic Start: 09-02-19 End: 03-08-20 phentermine (Adipex-P) 37.5 MG capsule 37.5 mg 09/02/2023 03/08/2024 Discontinued Problems Active Problems Problem Classification Problem Date Documented Date Episodic/Chronic Chronic obstructive pulmonary disease and bronchiectasis (5 sources) Chronic obstructive pulmonary disease, unspecified; Translations: [COPD UNSPECIFIED] Onset: 01-05-2022 Chronic Headache; including migraine (5 sources) Migraine; Translations: [Migraine, unspecified, not intractable, without status migrainosus] Onset: 12-04-2009 12-03-2023 Chronic Noninfectious gastroenteritis (1 source) Noninfective gastroenteritis [...] [facility] - Other Lab Results [id number]#1.0 0OTGTIFF [facility] - Other Lab [facility] - Other Lab Results [id number]#1. 00OTGTIFF Normal [facility] IGP,APTIMA HPV,AGE GDLNon AGE GDLN ACOG TESTING Note . [facility] Comment on above: TESTS RESULT FLAG UN ITS REF RANGE LAB Clinician Provided Cytology Information Source.............Cervix;Endocervix No. of containers..01 ThinPrep Vial Age Algo ACOG Annette... FLAG LEGEND: L-Low Normal,H-High Normal,LL-Alert Low,HH-Alert High <-Panic Low,>-Panic High,A-Abnormal,AA-Critical Abnormal Performed at: 01 =[address] [address] Nessa Hernandez MD, HPV APTIMA Negative Negative [facility] Comment on above: This nucleic acid am plification test detects fourteen high- risk HPV types (16,18,31,33,35,39,45,51,52,56,58,59,66,68) without differentiation. Performed at: =[address] [id number] Cannoneer: Nessa Hernandez MD, Phone: [phone] Performed at: [address] [id number] Cannoneer: Nessa Hernandez MD, Phone: [phone] IGP, APTIMA HPV, RFX 16/18,45 Note . [facility] Comment on above: TESTS RESULT FLAG U NITS REF RANGE LAB DIAGNOSIS: 02 NEGATIVE FOR INTRAEPITHELIAL LESION OR MALIGNANCY. Specimen adequacy: 02 Satisfactory for evaluation. Endocervical and/or squamous metaplastic cells (endocervical component) are present. Performed by: 02 Chantal Block, Manager Activities ([facility]) . 02 Note: Note 02 The Pap smear is a screening test designed to aid in the detection of premalignant and malignant conditions of the uterine cervix. It is not a diagnostic procedure and should not be used as the sole means of detecting cervical cancer. Both false-positive and false-negative reports do occur. Test Methodology: Note 02 This liquid based ThinPrep(R) pap test was screened with the use of an image guided system. HPV Genotype Reflex Note 02 Criteria not met, HPV Genotype not performed. FLAG LEGEND: L-Low Normal,H-High Normal,LL-Alert Low,HH-Alert High <-Panic Low,>-Panic High,A-Abnormal,AA-Critical Abnormal Performed at: [address] [address] Nessa Hernandez MD, BRUSH-SPATULA CERVIX ENDOCERVIX [facility] ALL CBC WITH AUTO DIFFon BASOPHILS ABSOLUTE AUTO 0.1 [facility] Basophils/100 WBC (Bld) 0.6 % 0.2 - 2.0 % [facility] Eosinophils/100 WBC (Bld) 1.6 % 0.9 - 7.0 % [facility] Erythrocyte distribution width (RBC) [Ratio] 12.3 % 11.0 - 15.0 % [facility] Hematocrit (Bld) [Volume fraction] 38.1 % 36.0 - 48.0 % [facility] Hemoglobin (Bld) [Mass/Vol] 12.5 g/dL 12.0 - 16.0 g/dL [facility] IMMATURE GRANULOCYTES ABS AUTO 0.02 [facility] Immature granulocytes/100 WBC (Bld) 0.2 % 0.0 - 0.5 % [facility] Interpretation and review of laboratory results Abnormal [facility] LYMPHOCYTES ABSOLUTE AUTO 1.9 [facility] Lymphocytes/100 WBC (Bld) 22.6 % 20.5 - 60.0 % [facility] MCH (RBC) [Entitic mass] 30.2 pg 26.7 - 34.0 pg [facility] MCHC (RBC) [Mass/Vol] 32.8 g/dL 29.9 - 35.2 g/dL [facility] MCV (RBC) [Entitic vol] 92.0 fL 81.0 - 99.0 fL [facility] MONOCYTES ABSOLUTE AUTO 0.4 [facility] Monocytes/100 WBC (Bld) 4.5 % 1.7 - 12.0 % [facility] NEUTROPHILS ABSOLUTE AUTO 5.8 [facility] Neutrophils/100 WBC (Bld) 70.5 % 43.0 - 75.0 % [facility] Platelet mean volume (Bld) [Entitic vol] 9.6 fL 9.5 - 13.5 fL [facility] EO # 0.1 [facility] PLT 324 [facility] RBC 4.14 Low [facility] WBC 8.3 [facility] Progress Note - Nurseon - Progress Note - Nurse Patient presents [...] [Verified on: 03/08/2024 11:31 EDT] Yuki Sykes [facility] HCG ( test) Daren kessler Ql (U)Ordered By: Bailee Edwards on 05-18-2023 HCG ( test) Ql (U) Negative [facility] HCG,Urineon 05-18-2023 Beta HCG ( test) Ql (U) Negative Normal [facility] Comment on above: Result Comment: PERF ORMED BY: [place] [address] PATHOLOGIST ADMISSIONS NURSE MANJEET NOLAN M.D. Performed By: #### U HCG #### [address] Deni 05-18-2023 L -- ---- Specimen: [id number] Received: 05/18/23 Status: BETTY Mayberry Num: [id number] Spec Type: Surgical Subm Dr: Bailee Edwards MD Tissues: A Colon Biopsy (SIGMOID POLYP) Procedures: AUDREY/David, Gross/Micro L4 ---- Age/ Patient Sex Location Account Attending Physician ---- Mauro Damon / [id number] Bailee Edwards MD ---- SPEC NUM: [id number] RECD: 05/18/23 STATUS: BETTY MAYBERRY NUM: [id number] SHY: 05/18/23- SUBM DR: Bailee Edwards MD ENTERED: 05/18/[address] [facility] DR: ANNE TYPE: Surgical DEPT: S ORDERED: AUDREY/David, Gross/Micro [...] Description Microscopic examinations are performed CPT Codes 28874 ---- ---- Specimen: [id number] Received: 05/18/23 Status: BETTY Mayberry Num: [id number] Spec Type: Surgical Subm Dr: Bailee Edwards MD Tissues: A Colon Biopsy (SIGMOID POLYP) Procedures: AUDREY/David, Gross/Micro L4 ---- Patient: Mauro Damon [id number] (Continued) ---- Signed (signature on file) Chin-Ras John, MD 05/20/23 1101 Normal [facility] IMMUNOGLOBULINS IGA/IGM/IGG/ IGE QUANTITAon 04-24-2022 Immunoglobulin A, Qn, Serum 109 mg/dL Normal 87-352 [facility] Comment on above: Result Comment: Perf ormed at: CB Performed By: #### I MMUNGF #### [facility] [address] [place] [address] Dr. Nichelle John Immunoglobulin E, Total 37 IU/mL Normal 6-495 [facility] Comment on above: Result Comment: Perf ormed at: BN Performed By: #### I MMUNGF #### [facility] [address] [place] [address] Dr. Nichelle John Immunoglobulin G, Qn, Serum 499 mg/dL Critically low [phone] [facility] Comment on above: Result Comment: Perf ormed at: CB Performed By: #### I MMUNGF #### [facility] [address] [place] [address] Dr. Nichelle John Immunoglobulin M, Qn, Serum 54 mg/dL Normal 26-217 [facility] Comment on above: Result Comment: Perf ormed at: CB Performed By: #### I MMUNGF #### [facility] [address] [place] [address] Dr. Nichelle John CBC AUTO DIFFon 04-16-2022 BASO # 0.1 103/ul Normal 0.0-0.1 [facility] Comment on above: Performed By: #### C BC #### [facility] [address] [place] [address] Dr. Nichelle John Basophils/100 WBC (Bld) 0.4 % Normal 0.2-2.0 [facility] Comment on above: Performed By: #### C BC #### [facility] [address] [place] [address] Dr. Nichelle John EO # 0.2 103/ul Normal 0.0-0.7 [facility] Comment on above: Performed By: #### C BC #### [facility] [address] [place] [address] Dr. Nichelle John Eosinophils/100 WBC (Bld) 1.5 % Normal 0.9-7.0 [facility] Comment on above: Performed By: #### C BC #### [facility] [address] [place] [address] Dr. Nichelle John Erythrocyte distribution width (RBC) [Ratio] 12.6 % Normal 11.0-15.0 [facility] Comment on above: Performed By: #### C BC #### [facility] [address] [place] [address] Dr. Nichelle John Hematocrit (Bld) [Volume fraction] 39.4 % Normal 36.0-48.0 [facility] Comment on above: Performed By: #### C BC #### [facility] [address] [place] [address] Dr. Nichelle John Hemoglobin (Bld) [Mass/Vol] 13.2 g/dL Normal 12.0-16.0 [facility] Comment on above: Performed By: #### C BC #### [facility] [address] [place] [address] Dr. Nichelle John IG # 0.05 10e3/ul Critically high 0.00-0.[address] [facility] Comment on above: Performed By: #### C BC #### [facility] [address] [place] [address] Dr. Nichelle John IG % 0.4 % Normal 0.0-0.5 [facility] Comment on above: Performed By: #### C BC #### [facility] [address] [place] [address] Dr. Nichelle John LYMPH # 3.0 103/ul Normal 1.2-3.8 [facility] Comment on above: Performed By: #### C BC #### [facility] [address] [place] [address] Dr. Nichelle oJhn Lymphocytes/100 WBC (Bld) 26.0 % Normal 20.5-60.0 [facility] Comment on above: Performed By: #### C BC #### [facility] [address] [place] [address] Dr. Nichelle John MANUAL DIFF REQ NO Normal [facility] Comment on above: Performed By: #### C BC #### [facility] [address] [place] [address] Dr. Nichelle John MCH (RBC) [Entitic mass] 31.4 pg Normal 26.7-34.0 [facility] Comment on above: Performed By: #### C BC #### [facility] [address] [place] [address] Dr. Nichelle John MCHC (RBC) [Mass/Vol] 33.5 g/dL Normal 29.9-35.2 [facility] Comment on above: Performed By: #### C BC #### [facility] [address] [place] [address] Dr. Nichelle John MCV (RBC) [Entitic vol] 93.6 fL Normal 81.0-99.0 [facility] Comment on above: Performed By: #### C BC #### [facility] [address] [place] [address] Dr. Nichelle John MONO # 0.7 103/ul Normal 0.3-0.8 [facility] Comment on above: Performed By: #### C BC #### [facility] [address] [place] [address] Dr. Nichelle John Monocytes/100 WBC (Bld) 6.1 % Normal 1.7-12.0 [facility] Comment on above: Performed By: #### C BC #### [facility] [address] [place] [address] Dr. Nichelle John NEUT # 7.5 103/ul Critically high 1.4-6.5 [facility] Comment on above: Performed By: #### C BC #### [facility] [address] [place] [address] Dr. Nichelle John Neutrophils/100 WBC (Bld) 65.6 % Normal 43.0-75.0 [facility] Comment on above: Performed By: #### C BC #### [facility] [address] [place] [address] Dr. Nichelle John Platelet mean volume (Bld) [Entitic vol] 9.6 fL Normal 9.5-13.5 [facility] Comment on above: Performed By: #### C BC #### [facility] [address] [address] [address] Nichelle John PLT 369 103/ul Normal 150-450 [facility] Comment on above: Performed By: #### C BC #### [facility] [address] [place] [address] Dr. Nichelle John RBC 4.21 106/ul Normal 4.20-5.40 [facility] Comment on above: Performed By: #### C BC #### [facility] [address] [address] [address] Nichelle John WBC 11.4 103/ul Critically high 4.0-11.0 [facility] Comment on above: Performed By: #### C BC #### [facility] [address] [place] [address] Dr. Nichelle John XR CHEST 2 Von [...] by: GONZALO MEDELLIN Date: 2022-04-16 16:35 Normal [facility] PAP ACOG PANEL 2: 21 to 29on 03-05-2022 . . Normal [facility] Comment on above: Performed By: #### [id number] #### [facility] [address] [place] [address] Dr. Nichelle John Age Gdln ACOG Testing 21-29 Normal [facility] Comment on above: Performed By: #### 4 [id number] #### [facility] [address] [place] [address] Dr. Nichelle John DIAGNOSIS: Comment Normal [facility] Comment on above: Result Comment: NEGA TIVE FOR INTRAEPITHELIAL LESION OR MALIGNANCY. Performed By: #### 4 [id number] #### [facility] [address] [place] [address] Dr. Nichelle John Methodology: Comment Normal [facility] Comment on above: Result Comment: This liquid based ThinPrep(R) pap test was screened with the use of an image guided system. Performed By: #### 4 [id number] #### [facility] [address] [place] [address] Dr. Nichelle John Note: Comment Normal [facility] Comment on above: Result Comment: The Pap smear is a screening test designed to aid in the detection of premalignant and malignant conditions of the uterine cervix. It is not a diagnostic procedure and should not be used as the sole means of detecting cervical cancer. Both false-positive and false-negative reports do occur. . Performed By: #### 4 [id number] #### [facility] [address] [place] [address] Dr. Nichelle John Performed by: Comment Normal [facility] Comment on above: Result Comment: Vida Rolon Manager Activities ([employer]) Performed By: #### 4 [id number] #### [facility] [address] [place] [address] Dr. Nichelle John Reflex Criteria: Comment Normal [facility] Comment on above: Result Comment: The HPV DNA reflex criteria were not met with this specimen result therefore, no HPV testing was performed. . Performed By: #### 4 [id number] #### [facility] [address] [place] [address] Dr. Nichelle John Specimen adequacy: Comment Normal [facility] Comment on above: Result Comment: Sati sfactory for evaluation. Endocervical and/or squamous metaplastic cells (endocervical component) are present. Performed By: #### 4 [id number] #### [facility] [address] [place], [place] [address] Dr. Nichelle John [id number] DNA ANAL [facility] 01-15-2022 AAT, DNA Analysis Comment Normal [facility] Comment on above: Result Comment: Resu lt: c.1096 G>A (p.Nbf782Hxs), Z allele - Not detected c.863 A>T (p.Zyp232Tbs), S allele - Not detected Not associated with increased risk of developing clinically relevant symptoms of alpha-1 antitrypsin deficiency. See Additional Clinical Information and Comments. Performed By: #### A LPHGEN #### [facility] [address] [address] [address] Nichelle John Additional Information: Comment Normal [facility] Comment on above: Result Comment: [...] health care providers to discuss results at [phone] ([phone]). . Test Details: Two variants analyzed: c.1096 G>A (p.Ola122Tkl), commonly referred to as the Z allele or PI*Z c.863 A>T (p.Zun184Ikg), commonly referred to as the S allele [...] developed and its performance characteristics determined by [employer]. It has not been cleared or approved by the Food and Drug Administration. . References: Princess RA, Abby G, Kamini ML, Aramis M, Yusuf CE, K, Nany DK, Joellen SL, Shellie BARRERA, Tiffanie MESSINA, Mellissa C, Cody J. The Diagnosis and Management of Alpha-1 Antitrypsin Deficiency in the Adult. Chronic Obstr Pulm Dis. 2016 Dec 01;3(3):668-682. doi: 10.18413/jcopdf.3..0182. PMID: 10582107; PMCID: [id number]. Tiffanie MESSINA, Laura V, Darline GALLOWAY. Alpha-1 Antitrypsin Deficiency. 2005Apr 23 [Updated 2019November 15]. In: Cleve MP, She VIRK, Mabel JACK, et al., editors. Deric(R) [Internet]. [place] ([place]): [facility]; 9968-0345. Available from: https://www.ncbi.nlm.nih.gov/books/NKA3358/ Performed By: #### A TERRYEN #### [facility] [address] [address] [address] Nichelle John Electronically Signed By Comment Normal [facility] Comment on above: Result Comment: Severo Duarte, Ph.D., [facility] Performed By: #### A FELIPA #### [facility] [address] [address] [address] Nichelle John CBC AUTO DIFFon 01-05-2022 BASO # 0.1 103/ul Normal 0.0-0.1 [facility] Comment on above: Performed By: #### C BC #### [facility] [address] [place] [address] Dr. Nichelle John Basophils/100 WBC (Bld) 0.6 % Normal 0.2-2.0 [facility] Comment on above: Performed By: #### C BC #### [facility] [address] [place] [address] Dr. Nichelle John EO # 0.1 103/ul Normal 0.0-0.7 [facility] Comment on above: Performed By: #### C BC #### [facility] [address] [place] [address] Dr. Nichelle John Eosinophils/100 WBC (Bld) 1.3 % Normal 0.9-7.0 [facility] Comment on above: Performed By: #### C BC #### [facility] [address] [place] [address] Dr. Nichelle John Erythrocyte distribution width (RBC) [Ratio] 12.9 % Normal 11.0-15.0 [facility] Comment on above: Performed By: #### C BC #### [facility] [address] [place] [address] Dr. Nichelle John Hematocrit (Bld) [Volume fraction] 39.5 % Normal 36.0-48.0 [facility] Comment on above: Performed By: #### C BC #### [facility] [address] [place] [address] Dr. Nichelle John Hemoglobin (Bld) [Mass/Vol] 13.3 g/dL Normal 12.0-16.0 [facility] Comment on above: Performed By: #### C BC #### [facility] [address] [place] [address] Dr. Nichelle John IG # 0.02 10e3/ul Normal 0.00-0.03 [facility] Comment on above: Performed By: #### C BC #### [facility] [address] [place] [address] Dr. Nichelle John IG % 0.2 % Normal 0.0-0.5 [facility] Comment on above: Performed By: #### C BC #### [facility] [address] [place] [address] Dr. Nichelle John LYMPH # 2.7 103/ul Normal 1.2-3.8 [facility] Comment on above: Performed By: #### C BC #### [facility] [address] [place] [address] Dr. Nichelle John Lymphocytes/100 WBC (Bld) 27.3 % Normal 20.5-60.0 [facility] Comment on above: Performed By: #### C BC #### [facility] [address] [place] [address] Dr. Nichelle John MANUAL DIFF REQ NO Normal [facility] Comment on above: Performed By: #### C BC #### [facility] [address] [place] [address] Dr. Nichelle John MCH (RBC) [Entitic mass] 31.2 pg Normal 26.7-34.0 [facility] Comment on above: Performed By: #### C BC #### [facility] [address] [place] [address] Dr. Nichelle John MCHC (RBC) [Mass/Vol] 33.7 g/dL Normal 29.9-35.2 [facility] Comment on above: Performed By: #### C BC #### [facility] [address] [place] [address] Dr. Nichelle John MCV (RBC) [Entitic vol] 92.7 fL Normal 81.0-99.0 [facility] Comment on above: Performed By: #### C BC #### [facility] [address] [place] [address] Dr. Nichelle John MONO # 0.6 103/ul Normal 0.3-0.8 [facility] Comment on above: Performed By: #### C BC #### [facility] [address] [place] [address] Dr. Nichelle John Monocytes/100 WBC (Bld) 6.1 % Normal 1.7-12.0 [facility] Comment on above: Performed By: #### C BC #### [facility] [address] [address] [address] Nichelle John NEUT # 6.4 103/ul Normal 1.4-6.5 [facility] Comment on above: Performed By: #### C BC #### [facility] [address] [address] [address] Nichelle John Neutrophils/100 WBC (Bld) 64.5 % Normal 43.0-75.0 [facility] Comment on above: Performed By: #### C BC #### [facility] [address] [address] [address] Nichelle John Platelet mean volume (Bld) [Entitic vol] 9.1 fL Critically low 9.5-13.5 [facility] Comment on above: Performed By: #### C BC #### [facility] [address] [address] [address] Nichelle John PLT 346 103/ul Normal 150-450 [facility] Comment on above: Performed By: #### C BC #### [facility] [address] [address] [address] Nichelle John RBC 4.26 106/ul Normal 4.20-5.40 [facility] Comment on above: Performed By: #### C BC #### [facility] [address] [address] [address] Nichelle John WBC 9.9 103/ul Normal 4.0-11.0 [facility] Comment on above: Performed By: #### C BC #### [facility] [address] [address] [address] 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 Patient recently traveled to [place]. Patient denies nasal symptoms or sore throat. Patient states she has a history of pneumonia. No oeae-pcf-yrkoneb treatments used. Review of Systems Fatigue: no [...] interactive video communications from my office using [employer] due to the restrictions of the COVID-19 pandemic. No physical exam was conducted other than those areas of the body visible to telecommunications with the patient located at [address] [facility] [phone], with no one else in attendance. If [...] and she gets this frequently. States nothing jrwg-vnj-txwkinh will help. Discussed in order to differentiate [...] Ordered: TELEHEALTH Office Visit Level 2 New 2. Shortness of breath (R06.02: Shortness of breath) see above plan Ordered: TELEHEALTH Office Visit Level 2 New 3. BMI 29.0-29.9,adult (Z68.29: Body mass index [...] [id number] TELEHEALTH Office Visit Level 2 New 4. Cigarette nicotine dependence (F17.210: Nicotine dependence, [...] 2 N (more content not included)... Normal [facility] Comment on above: Result Comment: Catherine troaleksandraally Signed By: Esmer THOMAS CNP\.br\Date and Time [...] and skin patches. Some may be available daqz-qys-whhwnkl and others require a prescription. ? Antidepressant medicine helps people abstain from smoking, but how this works is unknown. This medicine is available by prescription. ? Nicotinic receptor partial agonist medicine simulates the effect of nicotine in your brain. This medicine is available by (more content not included)... Normal [facility] Vital Signs Date Time Vital Sign Value Performing Clinician Facility 03-08-2024 15:33-0400 Body height 147.3 cm Client24 Work Phone: [facility] 03-08-2024 15:33-0400 Body mass index (BMI) [Ratio] 35.74 kg/m2 Client24 Work Phone: [facility] 03-08-2024 15:33-0400 Body weight 77.56 kg Client24 Work Phone: [facility] 03-08-2024 15:33-0400 Diastolic blood pressure 86 mm[Hg] Client24 Work Phone: [facility] 03-08-2024 15:33-0400 Systolic blood pressure 124 mm[Hg] Client24 Work Phone: [facility] 05-18-2023 11:55-0500 Diastolic blood pressure 48 mm[Hg] DO Huzco Work Phone: [facility] 05-18-2023 11:55-0500 Heart rate 80 /min DO Huzco Work Phone: [facility] 05-18-2023 11:55-0500 Respiratory rate 16 /min DO Huzco Work Phone: [facility] 05-18-2023 11:55-0500 SaO2% (BldA) [Mass fraction] 95 % DO Jose Luis Currie Work Phone: [facility] 05-18-2023 11:55-0500 Systolic blood pressure 138 mm[Hg] DO Jose Luis Currie Work Phone: [facility] 05-18-2023 09:57-0500 Body height 147.32 cm DO Jose Luis Currie Work Phone: [facility] 05-18-2023 09:57-0500 Body temperature 99 [degF] DO Jose Luis Currie Work Phone: [facility] 05-18-2023 09:57-0500 Body weight 67.13 kg DO Jose Luis Currie Work Phone: [facility] Encounters Encounter Date Encounter Type Care Provider Facility Start: 01-09-2025 ambulatory JOSE LUIS CURRIE Facilit y:[facility] Start: 08-22-2024 End: 08-22-2024 ambulatory Damon Navarro Facility:[facility] Start: 06-15-2024 End: 06-15-2024 ambulatory DO JOSE LUIS CURRIE Facility:[facility] Start: 05-08-2024 End: 05-08-2024 ambulatory JOSE LUIS CURRIE Facility:[facility] Start: 03-11-2024 End: 03-11-2024 Clinisync Result Encounter Yohana BENNETT Work Phone: [facility] Unsolicited Start: 03-11-2024 End: 03-11-2024 Clinisync Result Encounter Yohana BENNETT Work Phone: [facility] Unsolicited Start: 03-08-2024 End: 03-08-2024 Patient encounter procedure Nicolasa Edwards DO Work Phone: [facility] Start: 03-08-2024 End: 03-08-2024 Periodic preventive med est patient 18-39 yrs Nicolasa Grace DO Work Phone: [facility] Comment on above: Well woman exam with routine gynecological exam Start: 03-08-2024 End: 03-08-2024 ambulatory NICOLASA GRACE Not Available Start: 03-08-2024 End: 03-08-2024 Bamboo flowsheet Nicolasa Grace DO Work Phone: [facility] Start: 03-08-2024 End: 03-14-2024 Clinisync Result Encounter Nicolasa Grace DO Work Phone: [facility] Unsolicited Start: 03-08-2024 End: 03-14-2024 Clinisync Result Encounter Nicolasa Grace DO Work Phone: [facility] Unsolicited Start: 03-07-2024 End: 03-07-2024 ambulatory JOSE LUIS CURRIE Facility:[facility] Start: 12-06-2023 End: 12-06-2023 ambulatory MANUELITO R DOLCE Not Available Start: 05-18-2023 End: 05-18-2023 ambulatory Jose Luis Currie Facility:[facility] Start: 05-18-2023 End: 05-18-2023 Admission to same day surgery center DO Jose Luis Currie Work Phone: [facility] Work Phone: Start: 05-18-2023 End: 05-18-2023 ambulatory DO Jose Luis Currie Work Phone: [facility] Work Phone: Start: 04-16-2022 End: 04-17-[address] JOSE LUIS CURRIE Facility:[facility] Start: 02-25-2022 End: 02-25-[address] JOSE LUIS CURRIE Facility:[facility] Start: 02-05-2022 End: 02-06-[address] JOSE LUIS CURRIE Facility:[facility] Start: 01-06-2022 End: 01-06-[address] JOSE LUIS CURRIE Facility:[facility] Start: 01-05-2022 End: 01-06-[address] JOSE LUIS CURRIE Facility:[facility] Procedures Date Procedure Procedure Detail Performing Clinician Start: 03-11-2024 ALL CBC WITH AUTO DIFF Yohana BENNETT Work Phone: Start: 03-08-2024 IGP,APTIMA HPV,AGE GDLN Nicolasa Grace DO Work Phone: Start: 05-18-2023 Colonoscopy DO Jose Luis House Work Phone: Plan of Treatment Date Care Activity Detail Author Start: 03-12-2025 End: 03-12-2025 Patient encounter procedure 03/12/2025 3:00 PM EDT Office Visit [facility] [address] [place] [address] Nicolasa Edwards, DO [address], [place] [address] [facility] Start: 03-22-2024 End: 03-22-2024 Professional / ancillary services management 03/22/2024 11:00 AM EDT Ancillary Procedure [facility] [address] [facility] [place] [address] [facility] Start: 03-08-2024 End: 03-08-2024 Patient encounter procedure 03/08/2024 3:00 PM EDT Office Visit [facility] [address] [facility] [place] [address] Nicolasa Edwards, DO [address] [place] [address] Arrived [facility] Comment on above: Arrived Start: 05-18-2023 [facility] Cytology Cervical or vaginal smear or scraping study Pap Smear Pathology and Cytology Routine Well woman exam with routine gynecological exam Ordered: 03/08/2024 [facility] Work Phone: Comment on above: Ordered: 03/08/2024 Human papilloma viru s DNA [Presence] in Unspecified specimen by Probe with amplification HPV DNA probe, amplified Microbiology Routine Well woman exam with routine gynecological exam Ordered: 03/08/2024 [facility] Comment on above: Ordered: 03/08/2024 Patient Education Colon Polypectomy (DC) [facility] Work Phone: Payers Date Payer Category Payer Unknown [id number] 2023 Private Health Insurance [facility] [id number] 2023-Present [address] [address] [place] [address] [id number] 2023 Private Health Insurance [id number] 2023 Self-pay 2022 Private Health Insurance [id number] 1990 Unknown [id number] [id number]. 593 1992 Unknown [id number] 2.16.840.1.995622.3.579.2. 593 1992 Unknown [id number] 2.16.840.1.597953.3.579.2. 593 1992 Unknown [id number] 2.16.840.1.348028.3.579.2. 593 1992 Unknown [id number] 2.16.840.1.049661.3.579.2. 593 1992 Unknown [id number] 2.16.840.1.485656.3.579.2. 1259 1992 Unknown [id number] 2.16.840.1.109918.3.579.2. 1259 1992 Unknown [id number] 2.16.840.1.497886.3.579.2. 718 1992 Unknown [id number] 2.16.840.1.667489.3.579.2. 718 1992 Unknown [id number] 2.16.840.1.107643.3.579.2. 718 1992 Unknown [id number] 2.16.840.1.972723.3.579.2. 718 1992 Unknown [id number] 2.16.840.1.345535.3.579.2. 718 1959 Unknown [id number] Medicaid [employer] [id number] Unknown [id number] [id number]. 531 Social History Date Type Detail Facility Start: 05-18-[facility]23 [facility] Start: 1990 Sex Assigned At Female F [facility] Start: 12-06-2023 Tobacco smoking stat [facility] Ex-smoker [facility] History of tobacco use Cigarette Smoker [facility] Start: 12-06-2023 Tobacco use and exposure Smokeless tobacco non-user [facility] Start: 03-08-2024 Alcoholic beverage intake Ex-drinker (finding) [facility] Start: 12-06-2023 History of Social function [facility] Start: 12-06-2023 Tobacco use panel [facility] Start: 12-03-2023 Alcohol Comment 1-2 times per week [facility] Start: 1990 Sex assigned at Not on file [facility] Start: 12-06-2023 Alcoholic beverage intake Current drinker of alcohol (finding) [facility] Goals Date Patient Goal Desired Activity /State Medication management note 04-04-2024 Note Date & Type Note Facility 04-04-2024 Note - From: JOSE LUIS CURRIE DO To: [facility] Sent: 04/04/2024 07:42:30 EDT Subject: FW: Medication Management Due Date/Time: 04/04/2024 14:57:00 EDT Caller Name: MAURO DAMON; Caller Number: H , M From: [id number] To: JOSE LUIS CURRIE DO Sent: April 03, 2024 1:57:22 PM CDT Subject: Medication Management Due: April 04, 2024 1:57:22 PM CDT Originally Prescribed Drug: Drug: phentermine (Adipex-P 37.5 mg oral capsule), 1 cap(s) Oral Daily Quantity: 30 cap(s) Days Supply: 0 Refills: 0 Substitutions Allowed Notes from Pharmacy: On Hold Pending Signature Preferred Alternative Drug: phentermine (Adipex-P 37.5 mg oral capsule), TAKE 1 TABLET BY MOUTH DAILY Quantity: 30 EA Days Supply: 0 Refills: 0 Substitutions Allowed Notes from Pharmacy: From: Yuki Sykes To: [id number] Sent: 04/04/2024 16:11:41 EDT Subject: FW: Medication Management Rx Change Denied: proposed to provider (Adipex-P 37.5 mg oral capsule) 1 cap(s) Oral Daily Qty: 30 cap(s) Days Supply: 0 Refills: 0 Substitutions Allowed Route To Pharmacy - [id number] Signed by Yuki Sykes [facility] History of Present illness Narrative 03-08-2024 SABRINA Jones - 03/08/2024 3:00 PM EDT Note Date & Type Note Facility 03-08-2024 History of Presen t illness Narrative Reason for Appointment: Patient ID: Mauro Damon is a 33 y.o. female who presents for Well Women Visit Patient presents today for Annual Exam. MEDICATIONS Current Outpatient Medications Medication Instructions esomeprazole (NEXIUM) 40 mg norethindrone-ethinyl estradiol (Alyacen ) 1-35 MG-MCG tablet 1 tablet, Oral, Daily SUMAtriptan (Imitrex) 100 MG tablet 0 Refill(s) ALLERGIES No Known Allergies PROBLEMS Active Ambulatory Problems Diagnosis Date Noted Migraine headache (CMS/HCC) 12/04/2009 Resolved Ambulatory Problems Diagnosis Date Noted No Resolved Ambulatory Problems Past Medical History: Diagnosis Date Migraines (CMS/HCC) Ovarian cyst HISTORY PAST MEDICAL HISTORY SOCIAL HISTORY Past Medical History: Diagnosis Date Migraines (CMS/HCC) Ovarian cyst Social History Tobacco Use Smoking status: Former Current packs/day: 0.50 Types: Cigarettes Smokeless tobacco: Never Substance Use Topics Alcohol use: Not Currently Comment: 1-2 times per week Drug use: Never FAMILY HISTORY Family History Problem Relation Name Age of Onset Asthma Father Diabetes Father Bipolar disorder Father SURGICAL HISTORY Past Surgical History: Procedure Laterality Date [place] REPAIR SLIDING INGUINAL HERNIA 2009 REVIEW OF SYSTEMS Review of Systems: Review of Systems Constitutional: Negative. HENT: Negative. Eyes: Negative. Respiratory: Negative. Cardiovascular: Negative. Gastrointestinal: Negative. Genitourinary: Negative. Musculoskeletal: Negative. Skin: Negative. Neurological: Negative. All other systems reviewed and are negative. Hematological: Negative. Endocrine: Negative. Allergic/Immunologic: Negative. OBJECTIVE Objective: Physical Exam Constitutional: Appearance: Normal appearance. Genitourinary: Right Adnexa: not tender and no mass present. Left Adnexa: not tender and no mass present. No cervical discharge. Breasts: Breasts are soft. Right: Normal. Left: Normal. HENT: Head: Normocephalic. Nose: Nose normal. Mouth/Throat: Mouth: Mucous membranes are moist. Cardiovascular: Rate and Rhythm: Normal rate. Pulmonary: Effort: Pulmonary effort is normal. Abdominal: General: Bowel sounds are normal. Palpations: Abdomen is soft. Musculoskeletal: General: Normal range of motion. Cervical back: Normal range of motion. Neurological: General: No focal deficit present. Mental Status: She is alert. Skin: General: Skin is warm and dry. Psychiatric: Mood and Affect: Mood normal. Vitals and nursing note reviewed. Exam conducted with a foreign exchange trader present. Vitals: Estimated body mass index is 35.74 kg/m as calculated from the following: Height as of this encounter: 4' 10 . Weight as of this encounter: 171 lb. BP: 124/86 No LMP recorded (lmp unknown). (Menstrual status: No Periods). ASSESSMENT & PLAN ICD-10-CM 1. Well woman exam with routine gynecological exam Z01.419 Pap Smear HPV DNA probe, amplified Annual Exam: Patient presents today for an annual exam. Patient states she is doing well and has no complaints. Pap was obtained without difficulty. Orders Placed This Encounter Procedures HPV DNA probe, amplified Follow Up: Patient is to return in one year for annual unless needed otherwise. Documented by SABRINA Jones on behalf of: Nicolasa Edwards DO documented in this encounter [facility] Procedure note 05-18-2023 Note Date & Type Note Facility 05-18-2023 Procedure [address] [facility] Evaluation note Note Date & Type Note Facility Evaluation note No assessment information availa rip [facility] Work Phone: Evaluation note Note Date & Type Note Facility Evaluation note Diagnosis Well woman exam with routine gynecological exam Routine gynecological examination documented in this encounter [facility] History and physical note Note Date & Type Note Facility History and physical note Note Date/Time May 18, 2023 11:06am [facility] [address] [place] [address] Gastroenterology H&P Signed Patient: Mauro Damon MR#: [id number] : 1990 Acct:[id number] Age/Sex: 32 / F Adm Date: 3 Loc: Room: Type: [facility] Attending Dr: Bailee Edwards MD Copies [...] <Electronically signed by Bailee Edwards MD> 05/18/23 1106 [facility] Work Phone: Hospital Discharge instructions Note Date [...] pathology -Follow up with PCP. -Office number [phone]. [facility] Work Phone: Summary Purpose Family History No [...] and content) DATE CREATED AUTHOR 03/07/2021 Haresh Jose Elias [facility] DATE CREATED AUTHOR AUTHOR'S ORGANIZ ATION 04/24/2022 [facility] DATE CREATED AUTHOR AUTHOR'S ORGANIZ ATION 08/14/2023 [facility] DATE CREATED AUTHOR AUTHOR'S ORGANIZ ATION 03/10/2024 [facility] EPIC DATE CREATED AUTHOR AUTHOR'S ORGANIZ ATION 01/10/2025 [facility] l Care Teams (unrecognized sec tion and content) Team Status: Active Member Role Status Dates Jose Luis Currie DO Primary Care Provider Active Team Status: Inactive Member Role Status Dates Bailee Edwards MD Attending Provider Active Jose Luis Currie DO Primary Care Provider Active Weather Forecaster Relationship Specialty Start Date End Date Jose Luis Currie MD [address] [place] [address] PCP - General Family Medicine 03/03/23 Weather Forecaster Relationship Specialty Start Date End Date Jose Luis Currie MD [address] [place] [address] PCP - General Family Medicine 03/03/23 Reason for Visit (unrecogniz ed section and content) Reason Comments Well Women Visit FOR RECORDS PERTAINING TO PATIENTS WHO ARE [...] BE BASED ON THE PRIMARY CLINICAL RECORDS. [facility] [employer] [facility]. provides no warranty or guarantee of the accuracy or completeness of information in this document.
--- NOTE | 2025-01-27 07:35 | XR_ITS ---
The [address] [address] Patient Name: MAURO DAMON MRN: [id number] date: 1990 Sex: F Assigned Patient Location: ER Current Patient Location: ED.MAIN Accession/Order Number: [id number] Exam Date: 01/27/2025 08:29 Report Date: 01/27/2025 08:30 At the request of: CELY DIAZ MD Procedure: XR pelvis 1-2V XR pelvis 1-2V 01/27/2025 8:11 AM SIGNS AND SYMPTOMS: ^Left lateral groin pain PROTOCOL: Frontal radiograph of the pelvis COMPARISON: None FINDINGS: The bony ring of the pelvis is intact. The sacroiliac joints, symphysis pubis, and hips are preserved. There is no fracture or dislocation. XR/XR pelvis 1-2V IMPRESSION: No fracture, dislocation, or significant degenerative change. Impression dictated by: Moses Browning M.D. 01/27/2025 8:30 AM Dictation Location: [place] [address] Electronically authenticated by: [id number] Date: 01/27/2025 08:30
--- NOTE | 2025-01-27 07:35 | ED.GENADUL1 ---
HPI HPI - General Adult General Chief complaint: Extremity Problem, Nontraumatic Stated complaint: GROIN PAIN Time Seen by Provider: 01/27/25 07:09 Source: patient Mode of arrival: walk-in Limitations: no limitations History of Present Illness HPI narrative: 34-year-old female presents for left groin pain. She has had it for about 13 days and it started when she was starting to get out of her vehicle. She felt a popping sensation in this area. It has been hurting since. She did not fall. The pain does not seem to radiate down her leg. She points to the left lateral groin area to indicate where the pain is and she has not felt any bulges there. Previously she has had bilateral inguinal hernia repair. Related Data Previous Rx's ?Medication ?Instructions ?Recorded etodolac 400 mg tablet 400 mg PO Q8H PRN pain #20 tabs 01/27/25 Allergies Allergy/AdvReac Type Severity Reaction Status Date / Time No Known Drug Allergies Allergy Verified 01/27/25 07:06 Opioid HPI Opioid Management Most Recent Opioid Data: Last Pain Scale 7 Today, 07:13 Review of Systems ROS Narrative A ten point review of systems is negative except as noted above. PFSH PFSH Social History Little interest or pleasure in doing things: not at all Feeling down, depressed, or hopeless: not at all Exam Narrative Exam Narrative: Nurses note and vital signs reviewed and patient is not hypoxic. General: The patient appears well and in no apparent distress. Patient is resting comfortably on cart. Skin: Warm, dry, no pallor noted. There is no rash noted. Head: Normocephalic, atraumatic Eye: Normal conjunctiva, no drainage Ears, Nose, Mouth, and Throat: oral mucosa is moist. Nares patent. Cardiovascular: Regular Rate and Rhythm Respiratory: Patient is in no distress, no accessory muscle use, lungs are clear to auscultation, no wheezing, rales or rhonchi Back: non-tender GI: Abdomen is soft and nontender. The left groin is examined. There is no erythema or rash. There is no palpable masses or bulges. She has some tenderness in the extreme left lateral groin area. This reproduces her pain. Musculoskeletal: The patient has no evidence of calf tenderness, no pitting edema, symmetrical pulses noted bilaterally Neurological: A&O, normal speech Psychiatric: Cooperative Constitutional Vital Signs, click to edit/add: Last Vital Signs Temp 98.3 F 01/27/25 07:07 Pulse 78 01/27/25 07:07 Resp 18 01/27/25 07:07 BP 129/96 H 01/27/25 07:07 Pulse Ox 98 01/27/25 07:07 O2 Del Method Room Air 01/27/25 07:07 Course Vital Signs Vital signs: Vital Signs Temperature 98.3 F 01/27/25 07:07 Pulse Rate 78 01/27/25 07:07 Respiratory Rate 18 01/27/25 07:07 Blood Pressure 129/96 H 01/27/25 07:07 Pulse Oximetry 98 01/27/25 07:07 Oxygen Delivery Method Room Air 01/27/25 07:07 Temperature 98.3 F 01/27/25 07:07 Pulse Rate 78 01/27/25 07:07 Respiratory Rate 18 01/27/25 07:07 Blood Pressure 129/96 H 01/27/25 07:07 Pulse Oximetry 98 01/27/25 07:07 Oxygen Delivery Method Room Air 01/27/25 07:07 Medical Decision Making MDM Narrative Medical decision making narrative: Pelvis x-ray my interpretation shows no acute findings. My clinical impression is that this is a groin strain. I do not suspect hernia. She was prescribed etodolac and was recommended rest and ice. Treatment diagnosis and follow-up were discussed with the patient. Differential Diagnosis Differential Diagnosis: Groin strain, hernia Imaging Data Pelvis x-ray: My impression: No acute findings Discharge Plan Discharge Chief Complaint: Extremity Problem, Nontraumatic Clinical Impression: Groin strain Patient Disposition: Home, Self-Care Time of Disposition Decision: 08:24 Condition: Good Mode of Transportation: Private Vehicle Prescriptions / Home Meds: New etodolac 400 mg tablet 400 mg PO Q8H PRN (Reason: pain) Qty: 20 0RF Print Language: Citizen Of [place] Instructions: Groin Strain (ED) Referrals: Mauro Santana MD [Physician, General Surgery] Physician,Non-Staff, MD [Primary Care Provider] - 1 week
== END 2025-01-27 08:40 | disposition home or self-care (01) ==
PROVIDERS: Emergency Provider Emergency Medicine
DX: S39.011A Strain of muscle, fascia and tendon of abdomen, initial encounter (principal); X58.XXXA Exposure to other specified factors, initial encounter
CPT/HCPCS: 72170; 99283

== ENCOUNTER 2025-03-12 20:13 | Outpatient (REF) | payer BC, SELFPAY ==
--- OUTSIDE RECORDS SUMMARY | 2025-03-12 20:21 | XMS_ITS | CCD ---
Demographics Address [address] [place] [address] Home Phone Mobile Phone Preferred Language en Marital Status Unknown Roman Catholic Affiliation Unknown Race White Ethnic Group Not or Lati no Author Organization [facility] Care Team Providers Care Concrete Tester Name Role Phone HOUSE, DR LUNA Admitting [...] Consulting Unavailable MD Jerry Imchristal Attending Provider DO Jose Luis Currie Primary Care Provider Jose Luis Currie Primary Care Unavailable Asaad, Imchristal Attending Unavailable Asaad, Imad Admitting Unavailable DOLMACEY, MANUELITO R Attending Unavailable NICOLASA EDWARDS Attending Unavailable House Jose Luis DAVE Primary Care Provider JOSE LUIS CURRIE Primary Care Unavailable HOUSE, DO JOSE LUIS [...] HOUSE, DO JOSE LUIS Castro Attending Unavailable House Jose Luis DAVE Primary Care Provider Medications Current Medications Medication Drug Class(es) Dates Sig (Normalized) Sig (Original) esomeprazole 40 mg delayed release oral capsule (8 sources) Proton Pump Inhibitor Start: 03-17-2023 esomeprazole (NexIUM) [address] capsule 40 mg 03/17/2023 Active ethinyl estradiol 0.035 mg / norethindrone acetate 1 mg oral tablet (9 sources) Estrogen Start: 01-10-2025 take 1 tablet by mouth once daily Dasetta , 28, 1-35 MG-MCG tablet Indications: control counseling Take 1 tablet by mouth once daily 196 tablet 01/10/2025 Active Start: 03-01-2024 norethindrone- ethinyl estradiol (Alyacen 35) 1-35 MG-MCG tablet Indications: control counseling Take 1 tablet by mouth Daily 28 tablet 12 03/01/2024 Active Start: 05-18-2023 take [id number] 2857 ug by mouth once daily Norethindrone-Ethin Estradiol (Alyacen 1/35 (28)) 1-35 mg-mcg tablet Active 1 TAB PO Daily May 18, 2023 12:00am Completed/Discontinued Medications Medication Drug Class(es) Dates Sig [...] route every 3 months Intramuscular 03/08/2024 Discontinued 24 hr metFORMIN hydrochloride 500 mg extended release oral tablet (5 sources) Biguanide Start: 03-08-20 End: 03-12-20 take 1 tablet by mouth every twenty-four hours at mealtime metFORMIN XR (Glucophage-XR) 500 MG 24 hr tablet Indications: Amenorrhea Take 1 tablet (500 mg) by mouth in the evening. Take with meals Do not crush, chew, or split. 30 tablet 11 03/08/2024 03/12/2025 Discontinued (Other) phentermine hydrochloride 37.5 mg oral capsule (3 sources) Sympathomimetic Amine Anorectic Start: 09-02-19 24 End: 03-08-20 24 phentermine (Adipex-P) 37.5 MG capsule 37.5 mg 09/02/2023 03/08/2024 Discontinued SUMAtriptan 100 mg oral tablet (8 sources) Serotonin-1b and Serotonin-1d Receptor Agonist Start: 03-08-20 23 End: 03-12-20 25 SUMAtriptan (Imitrex) 100 MG tablet 0 Refill(s) 03/08/2023 03/12/2025 Discontinued (Other) Problems Active Problems Problem Classification Problem Date Documented Date Episodic/Chronic Chronic obstructive pulmonary disease and bronchiectasis (5 sources) Chronic obstructive pulmonary disease, unspecified; Translations: [COPD UNSPECIFIED] Onset: 01-05-2022 Chronic Headache; including migraine (8 sources) Migraine; Translations: [Migraine, unspecified, not intractable, [...] FORMS OF DYSPNEA] Onset: 02-09-2022 Episodic Other nutritional; endocrine; and metabolic disorders (1 source) Obesity, unspecified; Translations: [Obesity, unspecified] Onset: 02-08-2025 Chronic Other screening for suspected conditions (not [...] Interpretation Reference Range Facility Progress Note - Nurseon 01-26 Progress Note - Nurse Patient presents in office today for weight check for continued us of weight loss medication phentermine. Patient's weighed in today at 78.6kg with a weight loss of 4.3kg and a new BMI of 35.88. Vitals were taken and documented in patient chart. Patient is tolerating medication well and would like to continue with medication. Refill request was proposed to provider for signature. [Electronically Signed on: 02/16/2025 11:55 EDT] Yuki Nava [Verified on: 02/16/2025 11:55 EDT] Yuki Nava [facility] - Other Lab [facility] - Other Lab Results [id number]#1.0 0OTGTIFF [facility] - Other Lab [facility] - Other Lab Results [id number]. [facility] IGP,APTIMA HPV,AGE GDLNon AGE GDLN ACOG TESTING Note . [facility] Comment on above: TESTS RESULT FLAG UN ITS REF RANGE LAB Clinician Provided Cytology Information Source.............Cervix;Endocervix No. of containers..01 ThinPrep Vial Age Charly MORENO Annette... 32 FLAG LEGEND: L-Low Normal,H-High Normal,LL-Alert Low,HH-Alert High <-Panic Low,>-Panic High,A-Abnormal,AA-Critical Abnormal Performed at: 01 =[address] [address] Nessa Hernandez MD, HPV APTIMA Negative Negative [facility] Comment on above: This nucleic acid am plification test detects fourteen high- risk HPV types (16,18,31,33,35,39,45,51,52,56,58,59,66,68) without differentiation. Performed at: =[address] [id number] Repairer Wood Furniture: Nessa Hernandez MD, Phone: [phone] Performed at: [address] [id number] Repaire[employer]: Nessa Hernandez MD, Phone: [phone] IGP, APTIMA HPV, RFX 16/18,45 Note . [facility] Comment on above: TESTS RESULT FLAG UN ITS REF RANGE LAB DIAGNOSIS: 02 NEGATIVE FOR INTRAEPITHELIAL LESION OR MALIGNANCY. Specimen adequacy: 02 Satisfactory for evaluation. Endocervical and/or squamous metaplastic cells (endocervical component) are present. Performed by: Penny Block, Automatic Tire Tester (ASCP) . 02 Note: Note 02 The Pap [...] Low,>-Panic High,A-Abnormal,AA-Critical Abnormal Performed at: [address] [address] Nessa Hernandez MD, BRUSH-SPATULA CERVIX ENDOCERVIX [facility] ALL CBC WITH AUTO DIFFon BASOPHILS ABSOLUTE AUTO 0.1 [facility] Basophils/100 WBC (Bld) 0.6 % 0.2 - 2.0 % [facility] Eosinophils/100 WBC (Bld) 1.6 % 0.9 - 7.0 % [facility] Erythrocyte distribution width (RBC) [Ratio] 12.3 % 11.0 - 15.0 % [facility] Hematocrit (Bld) [Volume fraction] 38.1 % 36.0 - 48.0 % [facility] Hemoglobin (Bld) [Mass/Vol] 12.5 g/dL 12.0 - 16.0 g/dL [facility] IMMATURE GRANULOCYTES ABS AUTO 0.02 [facility] Immature granulocytes/100 WBC (Bld) 0.2 % 0.0 - 0.5 % [facility] Interpretation and review of laboratory results Abnormal [facility] LYMPHOCYTES ABSOLUTE AUTO 1.9 [facility] Lymphocytes/100 WBC (Bld) 22.6 % 20.5 - 60.0 % [facility] MCH (RBC) [Entitic mass] 30.2 pg 26.7 - 34.0 pg [facility] MCHC (RBC) [Mass/Vol] 32.8 g/dL 29.9 - 35.2 g/dL [facility] MCV (RBC) [Entitic vol] 92.0 fL 81.0 - 99.0 fL [facility] MONOCYTES ABSOLUTE AUTO 0.4 [facility] Monocytes/100 WBC (Bld) 4.5 % 1.7 - 12.0 % [facility] NEUTROPHILS ABSOLUTE AUTO 5.8 [facility] Neutrophils/100 WBC (Bld) 70.5 % 43.0 - 75.0 % [facility] Platelet mean volume (Bld) [Entitic vol] 9.6 fL 9.5 - 13.5 fL [facility] TBH EO # 0.[address] [facility] PLT [address] [facility] RBC 4.14 Low [facility] WBC 8.3 [facility] Progress Note - Nurseon 09- Progress Note - Nurse Patient presents in [...] [Verified on: 03/08/2024 11:31 EDT] Yuki Sykes Normal [facility] HCG ( test) Daren kessler Ql (U)Ordered By: Bailee Edwards on 05-18-2023 HCG ( test) Ql (U) Negative [facility] HCG,Urineon 05-18-2023 Beta HCG ( test) Ql (U) Negative Normal [facility] Comment on above: Result Comment: PERF ORMED BY: [place] [address] PATHOLOGIST FIRE CHIEF MANJEET NOLAN M.D. Performed By: #### U HCG #### [address] Deni 05-18-2023 L -- ---- Specimen: [id number] Received: 05/18/23 Status: BETTY Jefe Num: [id number] Spec Type: Surgical Subm Dr: Bailee Edwards MD Tissues: A Colon Biopsy (SIGMOID POLYP) Procedures: HE/2, Gross/Micro L4 ---- Age/ Patient Sex Location Account Attending Physician ---- Radha Damonjani Preciado 32/F [id number] Bailee Edwards MD ---- SPEC NUM: [id number] RECD: 05/18/23 STATUS: BETTY MAYBERRY NUM: [id number] SHY: 05/18/23 [facility] DR: Bailee Edwards MD ENTERED: 05/18/[address]: ANNE TYPE: Surgical DEPT: S ORDERED: HE/2, Gross/Micro L4 ORDERED: HE/2, Gross/Micro L4 Pathological Diagnosis Sigmoid polyp biopsy: [...] Description Microscopic examinations are performed CPT Codes 61927 ---- ---- Specimen: [id number] Received: 05/18/23-1208 Status: BETTY Mayberry Num: [id number] Spec Type: Surgical Subm Dr: Bailee Edwards MD Tissues: A Colon Biopsy (SIGMOID POLYP) Procedures: HE/2, Gross/Micro L4 ---- Patient: Mauro Damon [id number] (Continued) ---- Signed (signature on file) Iman John MD 05/20/23 11[address] [facility] IMMUNOGLOBULINS IGA/IGM/IGG/ IGE QUANTITAon 04-24-2022 Immunoglobulin A, Qn, Serum 109 mg/dL Normal 87-352 [facility] Comment on above: Result Comment: Perf ormed at: CB Performed By: #### I MMUNGF #### [facility] [address] [address] [address] Nichelle John Immunoglobulin E, Total 37 IU/mL Normal 6-495 [facility] Comment on above: Result Comment: Perf ormed at: BN Performed By: #### I MMUNGF #### [facility] [address] [place] [address] Dr. Nichelle John Immunoglobulin G, Qn, Serum 499 mg/dL Critically low [phone] [facility] Comment on above: Result Comment: Perf ormed at: CB Performed By: #### I MMUNGF #### [facility] [address] [place] [address] Dr. Nichelle John Immunoglobulin M, Qn, Serum 54 mg/dL Normal 26-217 [facility] Comment on above: Result Comment: Perf ormed at: CB Performed By: #### I MMUNGF #### [facility] [address] [place] [address] Dr. Nichelle John CBC AUTO DIFFon 04-16-2022 BASO # 0.1 103/ul Normal 0.0-0.1 [facility] Comment on above: Performed By: #### C BC #### [facility] [address] [place] [address] Dr. Nichelle John Basophils/100 WBC (Bld) 0.4 % Normal 0.2-2.0 [facility] Comment on above: Performed By: #### C BC #### [facility] [address] [place] [address] Dr. Nichelle John EO # 0.2 103/ul Normal 0.0-0.7 [facility] Comment on above: Performed By: #### C BC #### [facility] [address] [place] [address] Dr. Nichelle John Eosinophils/100 WBC (Bld) 1.5 % Normal 0.9-7.0 [facility] Comment on above: Performed By: #### C BC #### [facility] [address] [place] [address] Dr. Nichelle John Erythrocyte distribution width (RBC) [Ratio] 12.6 % Normal 11.0-15.0 [facility] Comment on above: Performed By: #### C BC #### [facility] [address] [place] [address] Dr. Nichelle John Hematocrit (Bld) [Volume fraction] 39.4 % Normal 36.0-48.0 [facility] Comment on above: Performed By: #### C BC #### [facility] [address] [place] [address] Dr. Nichelle John Hemoglobin (Bld) [Mass/Vol] 13.2 g/dL Normal 12.0-16.0 [facility] Comment on above: Performed By: #### C BC #### [facility] [address] [place] [address] Dr. Nichelle John IG # 0.05 10e3/ul Critically high 0.00-0.03 [facility] Comment on above: Performed By: #### C BC #### [facility] [address] [place] [address] Dr. Nichelle John IG % 0.4 % Normal 0.0-0.5 [facility] Comment on above: Performed By: #### C BC #### [facility] [address] [place] [address] Dr. Nichelle John LYMPH # 3.0 103/ul Normal 1.2-3.8 [facility] Comment on above: Performed By: #### C BC #### [facility] [address] [place] [address] Dr. Nichelle John Lymphocytes/100 WBC (Bld) 26.0 % Normal 20.5-60.0 [facility] Comment on above: Performed By: #### C BC #### [facility] [address] [place] [address] Dr. Nichelle John MANUAL DIFF REQ NO Normal [facility] Comment on above: Performed By: #### C BC #### [facility] [address] [place] [address] Dr. Nichelle John MCH (RBC) [Entitic mass] 31.4 pg Normal 26.7-34.0 [facility] Comment on above: Performed By: #### C BC #### [facility] [address] [place] [address] Dr. Nichelle John MCHC (RBC) [Mass/Vol] 33.5 g/dL Normal 29.9-35.2 [facility] Comment on above: Performed By: #### C BC #### [facility] [address] [address] [address] Nichelle John MCV (RBC) [Entitic vol] 93.6 fL Normal 81.0-99.0 [facility] Comment on above: Performed By: #### C BC #### [facility] [address] [address] [address] Nichelle John MONO # 0.7 103/ul Normal 0.3-0.8 [facility] Comment on above: Performed By: #### C BC #### [facility] [address] [address] [address] Nichelle John Monocytes/100 WBC (Bld) 6.1 % Normal 1.7-12.0 [facility] Comment on above: Performed By: #### C BC #### [facility] [address] [address] [address] Nichelle John NEUT # 7.5 103/ul Critically high 1.4-6.5 [facility] Comment on above: Performed By: #### C BC #### [facility] [address] [address] [address] Nichelle John Neutrophils/100 WBC (Bld) 65.6 % Normal 43.0-75.0 [facility] Comment on above: Performed By: #### C BC #### [facility] [address] [address] [address] Nichelle John Platelet mean volume (Bld) [Entitic vol] 9.6 fL Normal 9.5-13.5 [facility] Comment on above: Performed By: #### C BC #### [facility] [address] [address] [address] Nichelle John PLT 369 103/ul Normal 150-450 [facility] Comment on above: Performed By: #### C BC #### [facility] [address] [address] [address] Nichelle John RBC 4.21 106/ul Normal 4.20-5.40 [facility] Comment on above: Performed By: #### C BC #### [facility] [address] [address] [address] Nichelle John WBC 11.4 103/ul Critically high 4.0-11.0 [facility] Comment on above: Performed By: #### C BC #### [facility] [address] [place], [place] [address] Dr. Nichelle John XR CHEST 2 Von [...] by: GONZALO MEDELLIN Date: 2022-04-16 16:35 Normal [facility] PAP ACOG PANEL 2: 21 to 29on 03-05-2022 . . Normal [facility] Comment on above: Performed By: #### 4 [id number] #### [facility] [address] [place] [address] Dr. Nichelle John Age Gdln ACOG Testing 21-29 Normal [facility] Comment on above: Performed By: #### 4 [id number] #### [facility] [address] [place] [address] Dr. Nichelle John DIAGNOSIS: Comment Normal [facility] Comment on above: Result Comment: NEGA TIVE FOR INTRAEPITHELIAL LESION OR MALIGNANCY. Performed By: #### 4 [id number] #### [facility] [address] [place] [address] Dr. Nichelle John Methodology: Comment Normal [facility] Comment on above: Result Comment: This liquid based ThinPrep(R) pap test was screened with the use of an image guided system. Performed By: #### 4 [id number] #### [facility] [address] [place] [address] Dr. Nichelle John Note: Comment Normal [facility] Comment on above: Result Comment: The Pap smear is a screening test designed to aid in the detection of premalignant and malignant conditions of the uterine cervix. It is not a diagnostic procedure and should not be used as the sole means of detecting cervical cancer. Both false-positive and false-negative reports do occur. . Performed By: #### 4 [id number] #### [facility] [address] [place] [address] Dr. Nichelle John Performed by: Comment Normal [facility] Comment on above: Result Comment: Vida Rolon Automatic Tire Tester (ASCP) Performed By: #### 4 [id number] #### [facility] [address] [place] [address] Dr. Nichelle John Reflex Criteria: Comment Normal [facility] Comment on above: Result Comment: The HPV DNA reflex criteria were not met with this specimen result therefore, no HPV testing was performed. . Performed By: #### 4 [id number] #### [facility] [address] [place] [address] Dr. Nichelle John Specimen adequacy: Comment Normal [facility] Comment on above: Result Comment: Sati sfactory for evaluation. Endocervical and/or squamous metaplastic cells (endocervical component) are present. Performed By: #### 4 [id number] #### [facility] [address] [place] [address] Dr. Nichelle John [id number] DNA ANAL YSISon 01-15-2022 AAT, DNA Analysis Comment Normal [facility] Comment on above: Result Comment: Resu lt: c.1096 G>A (p.[id number]), Z allele - Not detected c.863 A>T (p.Ngd411Mba), S allele - Not detected Not associated with increased risk of developing clinically relevant symptoms of alpha-1 antitrypsin deficiency. See Additional Clinical Information and Comments. Performed By: #### A LPEN #### [facility] [address] [address] [address] Nichelle John Additional Information: Comment Normal [facility] Comment on above: Result Comment: Anish reza [...] health care providers to discuss results at [phone] ([phone]). . Test Details: Two variants analyzed: c.1096 G>A (p.Jhy376Usf), commonly referred to as the Z allele or PI*Z c.863 A>T (p.Yek317Gqi), commonly referred to as the S allele [...] developed and its performance characteristics determined by [employer].. It has not been cleared or approved by the Food and Drug Administration. . References: Princess JACK, Abby G, Kamini ML, Aramis M, Yusuf CE, K, Nany DK, Joellen SL, Shellie JM, Tiffanie MESSINA, Mellissa Tiwari, Cody Jolly. The Diagnosis and Management of Alpha-1 Antitrypsin Deficiency in the Adult. Chronic Obstr Pulm Dis. 2016 Dec 01;3(3):668-682. doi: 10.90947/jcopdf...0182. PMID: 67399653; PMCID: [id number]. Tiffanie MESSINA, Laura Weinstein, Darline GALLOWAY. Alpha-1 Antitrypsin Deficiency. 2005Apr 23 [Updated 2019November 15]. In: Cleve MP, She HH, Mabel JACK, et al., editors. Deric(R) [Internet]. [place] ([place]): [facility]; 1027-2075. Available from: https://www.ncbi.nlm.nih.gov/books/BDS6564/ Performed By: #### A LPHGEN #### [facility] [address] [place] [address] Dr. Nichelle John Electronically Signed By Comment Normal [facility] Comment on above: Result Comment: Severo Duarte, Ph.D., FACMG Performed By: #### A RADHAHGSUKHDEV #### [facility] [address] [place] [address] Dr. Nichelle John CBC AUTO DIFFon 01-05-2022 BASO # 0.1 103/ul Normal 0.0-0.1 [facility] Comment on above: Performed By: #### C BC #### [facility] [address] [address] [address] Nichelle John Basophils/100 WBC (Bld) 0.6 % Normal 0.2-2.0 [facility] Comment on above: Performed By: #### C BC #### [facility] [address] [place] [address] Dr. Nichelle John EO # 0.1 103/ul Normal 0.0-0.7 [facility] Comment on above: Performed By: #### C BC #### [facility] [address] [place] [address] Dr. Nichelle John Eosinophils/100 WBC (Bld) 1.3 % Normal 0.9-7.0 [facility] Comment on above: Performed By: #### C BC #### [facility] [address] [place] [address] Dr. Nichelle John Erythrocyte distribution width (RBC) [Ratio] 12.9 % Normal 11.0-15.0 [facility] Comment on above: Performed By: #### C BC #### [facility] [address] [place] [address] Dr. Nichelle John Hematocrit (Bld) [Volume fraction] 39.5 % Normal 36.0-48.0 [facility] Comment on above: Performed By: #### C BC #### [facility] [address] [place] [address] Dr. Nichelle John Hemoglobin (Bld) [Mass/Vol] 13.3 g/dL Normal 12.0-16.0 [facility] Comment on above: Performed By: #### C BC #### [facility] [address] [place] [address] Dr. Nichelle John IG # 0.02 10e3/ul Normal 0.00-0.03 [facility] Comment on above: Performed By: #### C BC #### [facility] [address] [place] [address] Dr. Nichelle John IG % 0.2 % Normal 0.0-0.5 [facility] Comment on above: Performed By: #### C BC #### [facility] [address] [place] [address] Dr. Nichelle John LYMPH # 2.7 103/ul Normal 1.2-3.8 [facility] Comment on above: Performed By: #### C BC #### [facility] [address] [place] [address] Dr. Nichelle John Lymphocytes/100 WBC (Bld) 27.3 % Normal 20.5-60.0 [facility] Comment on above: Performed By: #### C BC #### [facility] [address] [place] [address] Dr. Nichelle John MANUAL DIFF REQ NO Normal [facility] Comment on above: Performed By: #### C BC #### [facility] [address] [place] [address] Dr. Nichelle John MCH (RBC) [Entitic mass] 31.2 pg Normal 26.7-34.0 [facility] Comment on above: Performed By: #### C BC #### [facility] [address] [place] [address] Dr. Nichelle John MCHC (RBC) [Mass/Vol] 33.7 g/dL Normal 29.9-35.2 [facility] Comment on above: Performed By: #### C BC #### [facility] [address] [place] [address] Dr. Nichelle John MCV (RBC) [Entitic vol] 92.7 fL Normal 81.0-99.0 [facility] Comment on above: Performed By: #### C BC #### [facility] [address] [place] [address] Dr. Nichelle John MONO # 0.6 103/ul Normal 0.3-0.8 [facility] Comment on above: Performed By: #### C BC #### [facility] [address] [place] [address] Dr. Nichelle John Monocytes/100 WBC (Bld) 6.1 % Normal 1.7-12.0 [facility] Comment on above: Performed By: #### C BC #### [facility] [address] [place] [address] Dr. Nichelle John NEUT # 6.4 103/ul Normal 1.4-6.5 [facility] Comment on above: Performed By: #### C BC #### [facility] [address] [place] [address] Dr. Nichelle John Neutrophils/100 WBC (Bld) 64.5 % Normal 43.0-75.0 [facility] Comment on above: Performed By: #### C BC #### [facility] [address] [place], [place] [address] Dr. Nichelle John Platelet mean volume (Bld) [Entitic vol] 9.1 fL Critically low 9.5-13.5 [facility] Comment on above: Performed By: #### C BC #### [facility] [address] [place] [address] Dr. Nichelle John PLT 346 103/ul Normal 150-450 [facility] Comment on above: Performed By: #### C BC #### [facility] Laboratory [address] [address] [address] Nichelle John RBC 4.26 106/ul Normal 4.20-5.40 [facility] Comment on above: Performed By: #### C BC #### [facility] [address] [address] [address] Nichelle John WBC 9.9 103/ul Normal 4.0-11.0 [facility] Comment on above: Performed By: #### C BC #### [facility] [address] [place] [address] Dr. 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 Patient recently traveled to [place]. Patient denies nasal symptoms or sore throat. Patient states she has a history of pneumonia. No ncue-gku-zbmwuft treatments used. Review of Systems Fatigue: no [...] interactive video communications from my office using [employer] (formerly [employer]) due to the restrictions of the COVID-19 pandemic. No physical exam was conducted other than those areas of the body visible to telecommunications with the patient located at [address] [place] [phone], with no one else in attendance. If [...] and she gets this frequently. States nothing mdxb-sif-kvphskt will help. Discussed in order to differentiate viral versus bacterial illness and to ensure that she is stable given complaints of shortness of breath, I will need to assess her. Also given option of order for chest x-ray instead to check for pneumonia which she can have done in the hospital. Patient declines xray. Patient refuses to return to [facility] care for further assessment. Patient states that if I will not prescribe her tx without further eval, she will just follow-up with her doctor instead. Again advised patient she would need further eval in order to determine proper tx. She again declines. Ordered: TELEHEALTH Office Visit Level 2 New 83018 2. Shortness of breath (R06.02: Shortness of breath) see above plan Ordered: TELEHEALTH Office Visit Level 2 New 50100 3. BMI 29.0-29.9,adult (Z68.29: Body mass index [...] 3008F TELEHEALTH Office Visit Level 2 New 82628 4. Cigarette nicotine dependence (F17.210: Nicotine dependence, [...] 2 N (more content not included)... Normal [facility] Comment on above: Result Comment: Elec tronically Signed By: MARTHA COBIAN, Esmer Preciado\.br\Date and Time Signed: 02/11/21 11:17 EDT Patient [...] and skin patches. Some may be available ruec-efn-rqdvgci and others require a prescription. ? Antidepressant medicine helps people abstain from smoking, but how this works is unknown. This medicine is available by prescription. ? Nicotinic receptor partial agonist medicine simulates the effect of nicotine in your brain. This medicine is available by (more content not included)... Normal [facility] Vital Signs Date Time Vital Sign Value Performing Clinician Facility 03-12-2025 15:22-0400 Body mass index (BMI) [Ratio] 35.91 kg/m2 Nicolasa Grace DO Work Phone: [facility] 03-12-2025 15:22-0400 Body weight 77.93 kg Nicolasa Grace DO Work Phone: [facility] 03-12-2025 15:22-0400 Diastolic blood pressure 78 mm[Hg] Nicolasa Grace DO Work Phone: [facility] 03-12-2025 15:22-0400 Systolic blood pressure 114 mm[Hg] Nicolasa Grace DO Work Phone: [facility] 03-08-2024 15:33-0400 Body height 147.3 cm Nicolasa Grace DO Work Phone: [facility] 03-08-2024 15:33-0400 Body mass index (BMI) [Ratio] 35.74 kg/m2 Nicolasa Grace DO Work Phone: [facility] 03-08-2024 15:33-0400 Body weight 77.56 kg Nicolasa Grace DO Work Phone: [facility] 03-08-2024 15:33-0400 Diastolic blood pressure 86 mm[Hg] Nicolasa Grace DO Work Phone: [facility] 03-08-2024 15:33-0400 Systolic blood pressure 124 mm[Hg] Nicolasa Grace DO Work Phone: [facility] 05-18-2023 11:55-0500 Diastolic blood pressure 48 mm[Hg] DO [employer] Work Phone: [facility] 05-18-2023 11:55-0500 Heart rate 80 /min DO [employer] Work Phone: [facility] 05-18-2023 11:55-0500 Respiratory rate 16 /min DO Jose Luis Currie Work Phone: [facility] 05-18-2023 11:55-0500 SaO2% (BldA) [Mass fraction] 95 % DO Jose Luis Currie Work Phone: [facility] 05-18-2023 11:55-0500 Systolic blood pressure 138 mm[Hg] DO Jose Luis Currie Work Phone: [facility] 05-18-2023 09:57-0500 Body height 147.32 cm DO Jose Luis Currie Work Phone: [facility] 05-18-2023 09:57-0500 Body temperature 99 [degF] DO Jose Luis Currie Work Phone: [facility] 05-18-2023 09:57-0500 Body weight 67.13 kg DO Jose Luis Currie Work Phone: [facility] Encounters Encounter Date Encounter Type Care Provider Facility Start: 03-12-2025 End: 03-12-2025 Patient encounter procedure Nicolasa Grace DO Work Phone: [facility] Work Phone: Start: 03-12-2025 End: 03-12-2025 Periodic preventive med est patient 18-39 yrs Nicolasa Grace DO Work Phone: [facility] Comment on above: Well woman exam with routine gynecological exam Start: 03-12-2025 End: 03-12-2025 Bamboo flowsheet Nicolasa Grace DO Work Phone: [facility] Start: 03-12-2025 End: 03-12-2025 Bamboo flowsheet Nicolasa Grace DO Work Phone: [facility] Start: 02-08-2025 End: 02-08-2025 ambulatory JOSE LUIS CURRIE Facility:[facility] Start: 01-09-2025 ambulatory JOSE LUIS Castro [place] Facilit y:[facility] Start: 08-22-2024 End: 08-22-2024 ambulatory Damon Castro Ramon Facility:[facility] Start: 06-15-2024 End: 06-15-2024 ambulatory JOSE LUIS P ROSEY Facility:[facility] Start: 05-08-2024 End: 05-08-2024 ambulatory JOSE LUIS P HOUSE Facility:[facility] Start: 03-11-2024 End: 03-11-2024 Clinisync Result Encounter Yohana BENNETT Work Phone: [facility] Unsolicited Start: 03-11-2024 End: 03-11-2024 Clinisync Result Encounter Yohana BENNETT Work Phone: [facility] Unsolicited Start: 03-08-2024 End: 03-08-2024 Patient encounter procedure Nicolasa Grace DO Work Phone: [facility] Start: 03-08-2024 [...] Start: 03-07-2024 End: 03-07-2024 ambulatory JOSE LUIS P ROSEY Facility:[facility] Start: 12-06-2023 End: 12-06-2023 ambulatory MANUELITO GARDNER Not Available Start: 05-18-2023 End: 05-18-2023 ambulatory Jose Luis Rosey Facility:[facility] Start: 05-18-2023 End: 05-18-2023 Admission to same day surgery center DO Jose Luis Currie Work Phone: [facility] Work Phone: Start: 05-18-2023 End: 05-18-2023 ambulatory DO Jose Luis Currie Work Phone: [facility] Work Phone: Start: 04-16-2022 End: 04-17-2022 [...] Phone: Start: 05-18-2023 Colonoscopy DO Jose Luis Currie Work Phone: Plan of Treatment Date Care Activity Detail Author Start: 03-12-2025 End: 03-12-2025 Patient encounter procedure [facility] Comment on above: Arrived Start: 03-22-2024 End: 03-22-2024 Professional / ancillary services management 03/22/2024 11:00 AM EDT Ancillary Procedure [facility] [address] [place] [address] [facility] Start: 03-08-2024 End: 03-08-2024 Patient encounter procedure 03/08/2024 3:00 PM EDT Office Visit [facility] [address] [place] [id number] GraceNicolasa hernandez, DO [address] [place] [address] Arrived [facility] Comment on above: Arrived Start: 05-18-2023 [facility] Cytology Cervical or vaginal smear or scraping study Pap Smear Pathology and Cytology Routine Well woman exam with routine gynecological exam Ordered: 03/08/2024 [facility] Work Phone: Comment on above: Ordered: 03/08/2024 Human papilloma viru s DNA [Presence] in Unspecified specimen by Probe with amplification HPV DNA probe, amplified Microbiology Routine Well woman exam with routine gynecological exam Ordered: 03/08/2024 [facility] Comment on above: Ordered: 03/08/2024 Patient Education Colon Polypectomy (DC) [facility] Work Phone: Payers Date Payer Category Payer Unknown [id number] 2024 [facility] [id number] 2023 Private Health Insurance [facility] [id number] 2023-Present [address] [address] [place] [address] [id number] 2023 Private Health Insurance [id number] 2023 Self-pay 2022 Private Health Insurance [id number] 1992 Unknown [id number] [id number]. 593 1992 Unknown [id number] 2.16.840.1.837470.3.579.2. 593 1992 Unknown [id number] 2.16.840.1.119787.3.579.2. 593 1992 Unknown [id number] 2.16.840.1.335877.3.579.2. 593 1992 Unknown [id number] 2.16840.1.515987.3.579.2. 593 1992 Unknown [id number] 2.16.840.1.243559.3.579.2. 1259 1992 Unknown [id number] 2.16.840.1.701201.3.579.2. 1259 1992 Unknown [id number] 2.840.1.666167.3.579.2. 718 1992 Unknown [id number] 2.16840.1.416886.3.579.2. 718 1992 Unknown [id number] 2.16840.1.376512.3.579.2. 718 1992 Unknown [id number] 2.16.840.1.237841.3.579.2. 718 1992 Unknown [id number] 2.16840.1.896561.3.579.2. 71 1992 Unknown [id number] 2.16840.1.865375.3.579.2. 718 1959 Unknown [id number] Medicaid [employer] [id number] Unknown [id number] [id number]. 531 Social History Date Type Detail Facility Start: 05-18-2023 [facility] Start: 1990 Sex Assigned At Female F [facility] Start: 12-06-2023 Tobacco smoking stat [facility] Ex-smoker [facility] History of tobacco use [facility]igarette [facility] Start: 12-06-2023 Tobacco use and exposure Smokeless tobacco non-user [facility] Start: 03-08-2024 Alcoholic beverage intake Ex-drinker (finding) [facility] Start: 12-06-2023 History of Social function [facility] Start: 12-06-2023 Tobacco use panel [facility] Start: 12-03-2023 Alcohol Comment 1-2 times per week N [facility] Start: 1990 Sex assigned at Not on file N [facility] Start: 12-06-2023 Alcoholic beverage intake Current drinker of alcohol (finding) [facility] Goals Date Patient Goal Desired Activity /State History of Present illness Narrative 03-12-2025 Donna Painting NP - 03/12/2025 3:00 PM EDT Note Date & Type Note Facility 03-12-2025 History of Presen t illness Narrative Reason for Appointment: Patient ID: Mauro Damon is a 34 y.o. female who presents for Well Women Visit Patient presents today for Annual Exam. MEDICATIONS Current Outpatient Medications Medication Instructions Dasetta 1/35, 28, 1-35 MG-MCG tablet 1 tablet, Oral, Daily esomeprazole (NEXIUM) 40 mg ALLERGIES No Known Allergies PROBLEMS Active Ambulatory Problems Diagnosis Date Noted Migraine headache 12/04/2009 Resolved Ambulatory Problems Diagnosis Date Noted No Resolved Ambulatory Problems Past Medical History: Diagnosis Date Migraines Ovarian cyst HISTORY PAST MEDICAL HISTORY SOCIAL HISTORY Past Medical History: Diagnosis Date Migraines Ovarian cyst Social History Tobacco Use Smoking status: Former Current packs/day: 0.50 Types: Cigarettes Smokeless tobacco: Never Substance Use Topics Alcohol use: Not Currently Comment: 1-2 times per week Drug use: Never FAMILY HISTORY Family History Problem Relation Name Age of Onset Asthma Father Diabetes Father Bipolar disorder Father SURGICAL HISTORY Past Surgical History: Procedure Laterality Date [place] REPAIR SLIDING INGUINAL HERNIA 2008 REVIEW OF SYSTEMS Review of Systems: Review of Systems Constitutional: Negative. HENT: Negative. Eyes: Negative. Respiratory: Negative. Cardiovascular: Negative. Gastrointestinal: Negative. Genitourinary: Negative. Musculoskeletal: Negative. Skin: Negative. Neurological: Negative. All other systems reviewed and are negative. Hematological: Negative. Endocrine: Negative. Allergic/Immunologic: Negative. OBJECTIVE Objective: Physical Exam Constitutional: Appearance: Normal appearance. She is well-developed. Genitourinary: Vulva normal. Breasts: Breasts are soft. Right: Normal. Left: Normal. Cardiovascular: Rate and Rhythm: Normal rate and regular rhythm. Pulmonary: Effort: Pulmonary effort is normal. Breath sounds: Normal breath sounds. Abdominal: General: Bowel sounds are normal. There is no distension. Palpations: Abdomen is soft. Tenderness: There is no abdominal tenderness. There is no guarding or rebound. Musculoskeletal: General: No swelling. Normal range of motion. Right lower leg: No edema. Left lower leg: No edema. Neurological: Mental Status: She is alert and oriented to person, place, and time. Skin: General: Skin is warm and dry. Psychiatric: Mood and Affect: Mood normal. Behavior: Behavior normal. Vitals and nursing note reviewed. Exam conducted with a yeast tender present. Vitals: Estimated body mass index is 35.91 kg/m as calculated from the following: Height as of 24: 4' 10 . Weight as of this encounter: 171 lb 12.8 oz. BP: 114/78 No LMP recorded. (Menstrual status: No Periods). ASSESSMENT & PLAN ICD-10-CM 1. Well woman exam with routine gynecological exam Z01.419 Annual Exam: Patient presents today for an annual exam. Patient states she is doing well and has no complaints. Pap was obtained without difficulty. No orders of the defined types were placed in this encounter. Follow Up: Patient is to return in one year for annual unless needed otherwise. Documented by Donna Painting NP on behalf of: Nicolasa Edwards DO documented in this encounter [facility] Medication management note 04-04-2024 Note Date & Type Note Facility 04-04-2024 Note - From: JOSE LUIS CURRIE DO To: [facility] Clinical Pool ([facility]); Sent: 04/04/2024 07:42:30 EDT Subject: FW: Medication Management Due Date/Time: 04/04/2024 14:57:00 EDT Caller Name: MAURO DAMON; Caller Number: Yannick , Ozzy From: [id number] To: JOSE LUIS CURRIE DO Sent: [...] Notes from Pharmacy: From: Yuki Sykes To: [id number] Sent: 04/04/2024 16:11:41 EDT Subject: FW: Medication Management Rx Change Denied: proposed to provider (Adipex-P 37.5 mg oral capsule) 1 cap(s) Oral Daily Qty: 30 cap(s) Days Supply: 0 Refills: 0 Substitutions Allowed Route To Pharmacy - [id number] Signed by Yuki Sykes [facility] History of Present illness Narrative [...] Ambulatory Problems Diagnosis Date Noted Migraine headache ([facility]) 12/04/2009 Resolved Ambulatory Problems Diagnosis Date Noted [...] HISTORY Past Surgical History: Procedure Laterality Date [place] REPAIR SLIDING INGUINAL HERNIA 2009 REVIEW OF [...] nursing note reviewed. Exam conducted with a yeast tender present. Vitals: Estimated body mass index is [...] Nicolasa Edwards DO documented in this encounter [facility] Procedure note 05-18-2023 Note Date & Type Note Facility 05-18-2023 Procedure note [facility] Evaluation note Note Date & Type Note Facility Evaluation note No assessment information availa [facility] Work Phone: Evaluation note Note Date & Type Note Facility Evaluation note Diagnosis Well woman exam with routine gynecological exam Routine gynecological examination documented in this encounter [facility] Evaluation note Note Date & Type Note Facility Evaluation note Diagnosis Well woman exam with routine gynecological exam Routine gynecological examination documented in this encounter [facility] History and physical note Note Date & Type Note Facility History and physical note Note Date/Time May 18, 2023 11:06am [facility] [address] [place] [address] Gastroenterology H&P Signed Patient: Mauro Damon MR#: [id number] : 1990 Acct:[id number] Age/Sex: 32 / F Adm Date: 3 Loc: Room: Type: [facility] Attending Dr: Bailee Edwards MD Copies [...] <Electronically signed by Bailee Edwards MD> 05/18/23 [id number] [facility] Work Phone: Hospital Discharge instructions Note [...] pathology -Follow up with PCP. -Office number [phone]. [facility] Work Phone: Summary Purpose Family History Relationship Condition Age at Onset Recorded Date/T gely grandparent Diabetes mellitus Unknown father Diabetes mellitus Unknown Advance Directives Advance Directive Response Recorded Date/ Time Advance Directives No April 9:30am Chief Complaint and Reason for Visit Chief Complaint colitis Additional Source Comments INFORMATION SOURCE (unrecogn ized section and content) DATE CREATED AUTHOR 03/07/2021 [facility] DATE CREATED AUTHOR AUTHOR'S ORGANIZ ATION 04/24/2022 Duane Rosamaria [facility] DATE CREATED AUTHOR AUTHOR'S ORGANIZ ATION 08/14/2023 [facility] DATE CREATED AUTHOR AUTHOR'S ORGANIZ ATION 03/10/2024 [facility] DATE CREATED AUTHOR AUTHOR'S ORGANIZ ATION 02/18/2025 [facility] Care Teams (unrecognized sec tion and content) Team Status: Active Member Role Status Augustus Currie DO Primary Care Provider Active Team Status: Inactive Member Role Status Dates Bailee Edwards MD Attending Provider Active Jose Luis Currie DO Primary Care Provider Active Concrete Tester Relationship Specialty Start Date End Date Jose Luis Currie MD [address] [place] [address] PCP - General Family Medicine 03/03/23 Concrete Tester Relationship Specialty Start Date End Date Jose Luis Currie MD [address] [place] [address] PCP - General Family Medicine 03/03/23 Concrete Tester Relationship Specialty Start Date End Date Jose Luis Currie MD PCP - General Family Medicine 03/03/23 Concrete Tester Relationship Specialty Start Date End Date Jose Luis Currie MD PCP - General Family Medicine 03/03/23 Reason [...] BE BASED ON THE PRIMARY CLINICAL RECORDS. [employer] [facility]. provides no warranty or guarantee of the accuracy or completeness of information in this document.
[2025-03-16 18:08] LABS: Age Gdln ACOG Testing Note (.); IGP, Aptima HPV, rfx 16/18,45 Note (.)
== END 2025-03-12 20:14 | disposition home or self-care (01) ==
LOC: LAB 20:13
PROVIDERS: Visit Provider Obstetrics & Gynecology
DX: Z01.419 Encounter for gynecological examination (general) (routine) without abnormal findings (principal)
CPT/HCPCS: 87624; 88175

== ENCOUNTER 2025-06-04 10:28 | Outpatient (OUT) | payer BC, SELFPAY ==
--- OUTSIDE RECORDS SUMMARY | 2025-06-04 10:34 | XMS_ITS | CCD ---
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 Name Role Phone HOUSE, DR LUNA Admitting [...] Jerry Imchristal Attending Provider DO Jose Luis Lion Primary Care Provider Jose Luis Lion Primary Care Unavailable Asaad, Bailee Attending Unavailable Asaad, Imchristal Admitting Unavailable House Jose Luis DAVE Primary Care Provider Jose Luis Lion MD Primary Care Provider NICOLASA EDWARDS Attending Unavailable HOUSE, JOSE LUIS Castro Primary [...] HOUSE, JOSE LUIS Castro Primary Care Unavailable Damon Navarro Attending Unavailable HOUSE, JOSE LUIS Castro Primary Care Unavailable HOUSE, JOSE LUIS Castro Primary Care Unavailable HOUSE, DO JOSE LUIS Castro Attending Unavailable Medications Current Medications MedicationDrug Class(es)DatesSig (Normalized)Sig (Original)esomeprazole 40 mg delayed release oral capsule (10 sources)Proton Pump InhibitorStart: 49-25-7618ghjbxacziktn (NexIUM) [address] capsule 40 mg 03/17/2023 Activeethinyl estradiol 0.035 mg / norethindrone acetate 1 mg oral tablet (10 sources)EstrogenStart: 59-50-8688fbbv 1 tablet by mouth once dailyDasetta , 28, 1-35 MG-MCG tablet Indications: control counseling Take 1 tablet by mouth once daily 196 tablet 01/10/2025 ActiveStart: 70-07-1852rsldhwoiyuafd- ethinyl estradiol (Alyacen 35) 1-35 MG-MCG tablet Indications: control counseling Take 1 tablet by mouth Daily 28 tablet 12 03/01/2024 ActiveStart: 06-72-7288ofbj 0.76080038795281708 ug by mouth once dailyNorethindrone-Ethin Estradiol (Alyacen /35 (28)) 1-35 mg-mcg tablet Active 1 TAB PO Daily May 18, 2023 12:00am Completed/Discontinued Medications MedicationDrug Class(es)DatesSig (Normalized)Sig (Original)eletriptan 40 mg oral tablet (3 sources)Serotonin-1b and Serotonin-1d Receptor AgonistStart: 09-02-2023 End: 74-13-4277kbkbcpdpfc (Relpax) 40 MG tablet 40 mg 09/02/2023 03/08/2024 Discontinued1 ml medroxyPROGESTERone acetate 150 mg/ml injection (3 sources)Progestin End: 65-20-0598bmbfgu 1 mL by intramuscular injection every three months medroxyPROGESTERone (Depo-Provera) 150 MG/ML injection inject 1 milliliter (150MG) by intramuscularroute every 3 months Intramuscular 03/08/2024 Cshwrykdyxpq21 hr metFORMIN hydrochloride 500 mg extended release oral tablet (5 sources)BiguanideStart: 03-08-2024 End: 75-38-5809rgum 1 tablet by mouth every twenty-four hours at mealtime metFORMIN XR (Glucophage-XR) 500 MG 24 hr tablet Indications: Amenorrhea Take 1 tablet (500 mg) by mouth in the evening. Take with meals Do not crush, chew, or split. 30 tablet 11 03/08/2024 03/12/2025 Discontinued (Other)phentermine hydrochloride 37.5 mg oral capsule (3 sources)Sympathomimetic Amine AnorecticStart: 09-02-2023 End: 71-36-8006nnpcaycsttg (Adipex-P) 37.5 MG capsule 37.5 mg 09/02/2023 03/08/2024 DiscontinuedSUMAtriptan 100 mg oral tablet (8 sources)Serotonin-1b and Serotonin-1d Receptor AgonistStart: 03-08-2023 End: 98-71-8074BNAQxuddvyc (Imitrex) 100 MG tablet 0 Refill(s) 03/08/2023 03/12/2025 Discontinued (Other) Problems Active Problems Problem ClassificationProblemDateDocumented DateEpisodic/ChronicChronic obstructive pulmonary disease and bronchiectasis (5 sources)Chronic obstructive pulmonary disease, unspecified; Translations: [COPD UNSPECIFIED]Onset: 55-81-4249KybdyxkWnsxmpgf; including migraine (11 sources)Migraine; Translations: [Migraine, unspecified, not intractable, without status migrainosus]Onset: 136227-54-5474PnvjfkxTjhpvtmymoaqw gastroenteritis (1 source)Noninfective gastroenteritis and colitis, unspecified; Translations: [Noninfective gastroenteritis and colitis, unspecified]Onset: 94-37-2099Ehdekquq Other lower respiratory disease (5 sources)Shortness of breath; Translations: [SHORTNESS OF BREATH]Onset: 71-69-6756CvrbhgoxTccxl lower respiratory disease (1 source)Other forms of dyspnea; Translations: [OTHER FORMS OF DYSPNEA]Onset: 25-30-6893IpkmlajmJbasx nutritional; endocrine; and metabolic disorders (1 source)Obesity, unspecified; Translations: [Obesity, unspecified]Onset: 93-51-5007MoowcanDifan screening for suspected conditions (not mental disorders or infectious disease) (4 sources)Abnormal findings on diagnostic imaging of other specified body structures; Translations: [ABNORML FIND DX IMG OTH BODY STRUC]Onset: 04-16-2022 ChronicOther screening for suspected conditions (not mental disorders or infectious disease) (4 sources)Encounter for screening for malignant neoplasm of cervix; Translations: [ENC SCREENING MALIG NEOPLASM CERV]Onset: 89-69-1392Xuhsaube Pneumonia (except that caused by tuberculosis or sexually transmitted disease) (1 source)Pneumonia, unspecified organism; Translations: [PNEUMONIA UNSPECIFIED ORGANISM]Onset: 09-54-0773CuwqzrchYmeubeahicu; intervertebral disc disorders; other back problems (1 source)Cervicalgia; Translations: [Cervicalgia]Onset: 10-86-5881Ckirpinb Past or Other Problems Problem ClassificationProblemDateDocumented DateEpisodic/ChronicOther lower respiratory disease (1 source)Dyspnea, unspecified; Translations: [DYSPNEA UNSPECIFIED]Onset: 42-02-0643Cnsibegm Results Test NameValueInterpretationReference RangeFacilityInsuranceon 04-20-2025 [id number]#1.00OTTrumbull Memorial HospitalInsuranceon 57-14-0670Tgtsslgjh [id number]#1.00[facility] IGP,APTIMA HPV,AGE GDLNon 58-16-4245QHO GDLN ACOG TESTINGNote.[facility] Comment on above:TESTS RESULT FLAG UNITS REF RANGE LAB Clinician Provided Cytology Information Source.............Cervix;Endocervix No. of containers..01 ThinPrep Vial Age Algo ACOG Annette... FLAG LEGEND: L-Low Normal,H-High Normal,LL-Alert Low,HH-Alert High <-Panic Low,>-Panic High,A-Abnormal,AA-Critical Abnormal Performed at: 01 =[address] [address] Nessa Hernandez MD, HPV APTIMANegativeNegativeNOMS HealthcareComment on above:This nucleic acid amplification test detects fourteen high- risk HPV types (16,18,31,33,35,39,45,51,52,56,58,59,66,68) without differentiation. Performed at: =[address] [id number] Chemistry Instructor: eNssa Hernandez MD, Phone: [phone] Performed at: [address] [id number] Chemistry Instructor: Nessa Hernandez MD, Phone: [phone] IGP, APTIMA HPV, RFX 16/18,45Note.NOMS HealthcareComment on above:TESTS RESULT FLAG UNITS REF RANGE LAB DIAGNOSIS: 02 NEGATIVE FOR INTRAEPITHELIAL LESION OR MALIGNANCY. Specimen adequacy: 02 Satisfactory for evaluation. No endocervical component is identified. Performed by: 02 Jennyfer Manzano, Etcher Enameling ([facility]) . 02 Note: Note 02 The [...] <-Panic Low,>-Panic High,A-Abnormal,AA-Critical Abnormal Performed at: [address] [facility] [address] [place] [address] Nessa Hernandez MD, BRUSH-SPATULA CERVIX ENDOCERVIX CLINISYNCNOIL HealthcareProgress Note - Nurseon 95-91-8037Doihletb Note - Nurse Patient presents in office [...] Yuki Nava [Verified on: 02/16/2025 11:55 EDT] Alvaro NavaSumma Health Wadsworth - Rittman Medical CenterUS PELVIS W/ TRANSVAGINALon 27-42-4286Zh[address] [address] Ultrasound Report Signed Patient: MAURO DAMON MR#: [id number] : 1990 Acct:[id number] Age/Sex: 33 / F ADM Date: 03/22/24 Loc: [facility] Attending Dr: Yohana Zhou Ordering Physician: Yohana Zhou Date of Service: 03/22/24 Procedure(s): US pelvis w/ transvaginal Accession Number(s): [id number] cc: Yohana Zhou; Physician,Non-Staff [place] [address] [place] [id number] Patient Name: MAURO DAMON MRN: [id number] date: 1990 Sex: F Assigned Patient Location: [facility] Current Patient Location: [facility] Accession/Order Number: [id number] Exam Date: 03/22/2024 10:56 Report Date: 03/22/2024 12:59 At the request of: YOHANA ZHOU Procedure: US pelvis w/ transvaginal EXAMINATION: US pelvis w/ transvaginal HISTORY: POLYCYSTIC OVARIAN SYNDROME COMPARISON: No relevant comparison available. TECHNIQUE: Transabdominal and/or transvaginal sonographic examination was performed as indicated by examination type. FINDINGS: UTERUS: Small in size, but normal contour, echotexture, and appearance. Small amount of fluid within cervical canal. Uterus size: 7.2 x 2.3 x 3.5 cm ENDOMETRIUM: Normal homogeneous appearance. Endometrial thickness: 4 mm RIGHT OVARY: Small, but otherwise unremarkable. Blood flow present within ovary on color Doppler. . Ovary size: 1.8 x 1.7 x 1.9 cm LEFT OVARY: Small, but otherwise unremarkable. Blood flow present within ovary on color Doppler. . Ovary size: 1.8 x 1.4 x 1.7 cm CUL-DE-SAC: Unremarkable. No significant free fluid. BLADDER: Unremarkable. OTHER: None. US/US pelvis w/ transvaginal IMPRESSION: 1. Small uterus and small ovaries, but otherwise unremarkable. Electronically authenticated by: DAMON CAZARES Date: 03/22/2024 12:59 Dictated By: Damon Cazares M.D. Signed By: 03/22/24 5076 DD/ 7364 TD/TT: Arboriculture Instructor:HARRISadiology, Radiologist, - 03/22/2024 [place] [address] Ultrasound Report Signed Patient: MAURO DAMON MR#: [id number] : 1990 Acct:[id number] Age/Sex: 33 / F ADM Date: 03/22/24 Loc: [facility] Attending Dr: Yohana Zhou Ordering Physician: Yohana Zhou Date of Service: 03/22/24 Procedure(s): US pelvis w/ transvaginal Accession Number(s): [id number] cc: Yohana Zhou; Physician,Non-Staff M.DAnton [place] [id number] Patient Name: MAURO DAMON MRN: [id number] date: 1990 Sex: F Assigned Patient Location: [facility] Current Patient Location: [facility] Accession/Order Number: [id number] Exam Date: 03/22/2024 10:56 Report Date: 03/22/2024 12:59 At the request of: YOHANA ZHOU Procedure: US pelvis w/ transvaginal EXAMINATION: US pelvis w/ transvaginal HISTORY: POLYCYSTIC OVARIAN SYNDROME COMPARISON: No relevant comparison available. TECHNIQUE: Transabdominal and/or transvaginal sonographic examination was performed as indicated by examination type. FINDINGS: UTERUS: Small in size, but normal contour, echotexture, and appearance. Small amount of fluid within cervical canal. Uterus size: 7.2 x 2.3 x 3.5 cm ENDOMETRIUM: Normal homogeneous appearance. Endometrial thickness: 4 mm RIGHT OVARY: Small, but otherwise unremarkable. Blood flow present within ovary on color Doppler. . Ovary size: 1.8 x 1.7 x 1.9 cm LEFT OVARY: Small, but otherwise unremarkable. Blood flow present within ovary on color Doppler. . Ovary size: 1.8 x 1.4 x 1.7 cm CUL-DE-SAC: Unremarkable. No significant free fluid. BLADDER: Unremarkable. OTHER: None. US/US pelvis w/ transvaginal IMPRESSION: 1. Small uterus and small ovaries, but otherwise unremarkable. Electronically authenticated by: DAMON CAZARES Date: 03/22/2024 12:59 Dictated By: Damon Cazares M.D. Signed By: 03/22/24 1302 DD/ 1259 TD/TT: Arboriculture Instructor: [facility] HealthcareRadiology Study observation (narrative)[facility] HealthcareUS PELVIS W/ TRANSVAGINALOrdered By: Radiologist Radiology on 87-55-2033QLQZ Healthcare Work Phone: IGMatthew,MEREDITH HPV,AGE GDLNon 27-65-9400XDH GDLN ACOG TESTINGNote.[facility] HealthcareComment on above:TESTS RESULT FLAG UNITS REF RANGE LAB Clinician Provided Cytology Information Source.............Cervix;Endocervix No. of containers..01 ThinPrep Vial Age Algo ACOG Annette... 30-65 01 FLAG LEGEND: L-Low Normal,H-High Normal,LL-Alert Low,HH-Alert High <-Panic Low,>-Panic High,A-Abnormal,AA-Critical Abnormal Performed at: 01 =[address] [address] Nessa Hernandez MD, HPV APTIMANegativeNegativeMOUNTAIN POINT [facility]ENTER HealthcareComment on above:This nucleic acid amplification test detects fourteen high- risk HPV types (16,18,31,33,35,39,45,51,52,56,58,59,66,68) without differentiation. Performed at: =[facility] [id number] Chemistry Instructor: Nessa Hernandez MD, Phone: [phone] Performed at: - [facility] [address], [place] [id number] Chemistry Instructor: Nessa Hernandez MD, Phone: [phone] IGP, APTIMA HPV, RFX 16/18,45Note.N[facility]S HealthcareComment on above:TESTS RESULT FLAG UNITS REF RANGE LAB DIAGNOSIS: 02 NEGATIVE FOR INTRAEPITHELIAL LESION OR MALIGNANCY. Specimen adequacy: 02 Satisfactory for evaluation. Endocervical and/or squamous metaplastic cells (endocervical component) are present. Performed by: Penny Block, Explosive Ordnance Technician ([facility]) . 02 Note: Note 02 The [...] Low,>-Panic High,A-Abnormal,AA-Critical Abnormal Performed at: 02 WB [facility] [address] [place] [address] Nessa Hernandez MD, BRUSH-SPATULA CERVIX ENDOCERVIX CLINISYNCMid [facility] CBC WITH AUTO DIFFon 03-74-5855APUQEFHQE ABSOLUTE AUTO0.1N[facility] HospitalBasophils/100 WBC (Bld)0.6 %0.2 - 2.0 %[facility]OMSt. [facility] Eosinophils/100 WBC (Bld)1.6 %0.9 - 7.0 %[facility] CareErythrocyte distribution width (RBC) [Ratio]12.3 %11.0 - 15.0 %NOMSt. Louis Behavioral Medicine InstituteHematocrit (Bld) [Volume fraction]38.1 %36.0 - 48.0 %[facility] CareHemoglobin (Bld) [Mass/Vol]12.5 g/dL 12.0 - 16.0 g/dLUniversity of Missouri Health CareIMMATURE GRANULOCYTES ABS AUTO0.02[facility] Immature granulocytes/100 WBC (Bld)0.2 %0.0 - 0.5 %[facility] CareInterpretation and review of laboratory resultsAbnormalNOMadison Medical CenterLYMPHOCYTES ABSOLUTE AUTO1.9NOMadison Medical CenterLymphocytes/100 WBC (Bld)22.6 %20.5 - 60.0 %[facility] SystemH (RBC) [Entitic mass]30.2 pg26.7 - 34.0 pgSaint John's Health SystemHC (RBC) [Mass/Vol]32.8 g/dL29.9 - 35.2 g/dLSaint John's Health SystemV (RBC) [Entitic vol]92.0 fL 81.0 - 99.0 fLUniversity of Missouri Health CareMONOCYTES ABSOLUTE AUTO0.4[facility] Monocytes/100 WBC (Bld)4.5 %1.7 - 12.0 %NOMSt. Louis Behavioral Medicine InstituteNEUTROPHILS ABSOLUTE AUTO 5.8NOM[facility] HospitalNeutrophils/100 WBC (Bld)70.5 %43.0 - 75.0 %[facility] Platelet mean volume (Bld) [Entitic vol]9.6 fL9.5 - 13.5 fLUniversity of Missouri Health CareTB EO #0.1NOMS Community Memorial HospitalTB [id number] [facility] RBC4.14LowNOMS [facility] WBC 8.3N[facility] Memorial HospitalCLINISYNCNOMS Community Memorial HospitalHCG ( test) IA.rapid Ql (U) Ordered By: Bailee Edwards on 65-00-2477BOG ( test) Ql (U)NegativeMarion HospitalHCG,Urineon 96-41-1977Vhny HCG ( test) Ql (U) NegativeNormalMarion HospitalComment on above:Result Comment: PERFORMED BY: [address] RICKETTSKATHERINE [place] [id number] PATHOLOGIST MS SQL SERVER DEVELOPER MANJEET NOLAN M.D.Performed By: #### UHCG #### [place] [id number] USALon 05-18-2023L Specimen: [id number] Received: 05/18/23 Status: BETTY Jefe Num: [id number] Spec Type: Surgical Subm Dr: Bailee Edwards MD Tissues: A Colon Biopsy (SIGMOID POLYP) Procedures: AUDREY/Josias Hernandez/Tish L4 Age/ Patient Sex Location Account Attending Physician Mauro Damon 32/ [id number] Bailee Edwards MD SPEC NUM: [id number] RECD: 05/18/23 STATUS: BETTY MAYBERRY NUM: [id number] SHY: 05/18/23 DR: Bailee Edwards MD ENTERED: 05/18/[address] [facility] [address]: ANNE TYPE: Surgical DEPT: S ORDERED: [...] Description Microscopic examinations are performed CPT Codes 30750 Specimen: [id number] Received: 05/18/23 Status: BETTY Mayberry Num: [id number] Spec Type: Surgical Subm Dr: Bailee Edwards MD Tissues: A Colon Biopsy (SIGMOID POLYP) Procedures: HE/2, Gross/Micro L4 Patient: DamonMauro M [id number] (Continued) Signed (signature on file) Chin-Ras John MD 05/20/[address] [place], [place] [address]IMMUNOGLOBULINS IGA/IGM/IGG/IGE QUANTITAon 02-75-3687Euhhlknqmpoxma A, Qn, Zpupe513 mg/eBNtkbvj89-944RuePike Community HospitalComment on above:Result Comment: Performed at: CBPerformed By: #### IMMUNGF #### [facility] [address] [place] [address] [address] Nichelle JhonImmunoglobulin E, Total37 IU/mLNormal6-495[facility] Comment on above:Result Comment: Performed at: BNPerformed By: #### IMMUNGF #### [facility] [address] [place] [address] [address] Nichelle JohnImmunoglobulin G, Qn, Ezqiq744 mg/dLCritically fru023-7906CaqPike Community HospitalComment on above:Result Comment: Performed at: CBPerformed By: #### IMMUNGF #### [facility] [address] [place] [address] [address] Nichelle JohnImmunoglobulin M, Qn, Serum54 mg/tDRpojbh08-304TstWadsworth-Rittman Hospital on above:Result Comment: Performed at: CBPerformed By: #### IMMUNGF #### [facility] [address] [place] [address] [address] Nichelle EspositoC AUTO DIFFon 47-99-6522SUKJ #0.1 103/ulNormal0.0-0.1The [facility] For RehabilitationComment on above:Performed By: #### CBC #### [facility] [address] [place] [address] Dr. Nichelle JohnBasophils/100 WBC (Bld)0.4 %Normal0.2-2.0[facility] Comment on above:Performed By: #### CBC #### [facility] [address] [place] [address] Dr. Nichelle Salazar #0.2 103/ulNormal0.0-0.7The [facility] For RehabilitationComment on above: Performed By: #### CBC #### [facility] [address] [place] [address] Dr. Nichelle Raeosinophils/100 WBC (Bld)1.5 %Normal0.9-7.0[facility] Comment on above:Performed By: #### CBC #### [facility] [address] [place] [address] Dr. Nichelle Raerythrocyte distribution width (RBC) [Ratio]12.6 %Qunjnb85.0-15.0 The [facility] For RehabilitationComment on above:Performed By: #### CBC #### [facility] [address] [place] [address] Dr. Nichelle JohnHematocrit (Bld) [Volume fraction]39.4 %Tmzouj11.0-48.0[facility] Hospitalment on above:Performed By: #### CBC #### [facility] [address] [place] [address] Dr. Nichelle JohnHemoglobin (Bld) [Mass/Vol]13.2 g/fFJhdjlh89.0-16.0The [facility] RehabilitationComment on above:Performed By: #### CBC #### [facility] [address] [place] [address] Dr. Nichelle Cali #0.05 10e3/ulCritically high0.00-0.03The [facility] Comment on above:Performed By: #### CBC #### [facility] [address] [place] [address] Dr. Nichelle Cali %0.4 %Normal0.0-0.5The [facility] For RehabilitationComment on above: Performed By: #### CBC #### [facility] [address] [place] [address] Dr. Nichelle Wolff #3.0 103/ulNormal1.2-3.8The [facility] For RehabilitationComment on above:Performed By: #### CBC #### [facility] [address] [place] [address] Dr. Nichelle Garretthocytes/100 WBC (Bld)26.0 %Pusmmp49.5-60.0The [facility] For RehabilitationComment on above:Performed By: #### CBC #### [facility] [address] [place] [address] Dr. Nichelle Ramirez DIFF REQNONormalThe [facility] For RehabilitationComment on above: Performed By: #### CBC #### [facility] [address] [place] [address] Dr. Nichelle Andrade (RBC) [Entitic mass]31.4 bqIcjwvu88.7-34.0The [facility] For RehabilitationComment on above:Performed By: #### CBC #### [facility] [address] [place] [address] Dr. Nichelle Andrade (RBC) [Mass/Vol]33.5 g/fSFmotti88.9-35.2The [facility] RehabilitationComment on above:Performed By: #### CBC #### [facility] [address] [place] [address] Dr. Nichelle Andrade (RBC) [Entitic vol]93.6 uCHwabjb33.0-99.0The [facility] RehabilitationComment on above:Performed By: #### CBC #### [facility] [address] [place] [address] Dr. Nichelle Bond #0.7 103/ulNormal0.3-0.8The [facility] For RehabilitationComment on above:Performed By: #### CBC #### [facility] [address] [place] [address] Dr. Nichelle Gonsalesocytes/100 WBC (Bld)6.1 %Normal1.7-12.0[facility] Comment on above:Performed By: #### CBC #### [facility] [address] [place] [address] Dr. Nichelle Thacker #7.5 103/ulCritically high1.4-6.5The [facility] Comment on above:Performed By: #### CBC #### [facility] [address] [place] [address] Dr. Nichelle Lopezutrophils/100 WBC (Bld)65.6 %Xwkewo46.0-75.0The [facility] For RehabilitationComment on above:Performed By: #### CBC #### [facility] [address] [place] [address] Dr. Nichelle Ureña mean volume (Bld) [Entitic vol]9.6 fLNormal9.5-13.5The [facility] RehabilitationComment on above:Performed By: #### CBC #### [facility] [address] [place] [address] Dr. Nichelle MeierT369 103/wyKgqgab779-406Stg [facility] For RehabilitationComment on above: Performed By: #### CBC #### [facility] [address] [place] [address] Dr. Nichelle JohnRBC4.21 106/ulNormal4.20-5.40The [facility] For RehabilitationComment on above:Performed By: #### CBC #### [facility] [address] [place] [address] Dr. Nichelle JohnWBC11.4 103/ulCritically high4.0-11.0The [facility] RehabilitationComment on above:Performed By: #### CBC #### [facility] [address] [place] [address] Dr. Nichelle JohnXR CHEST 2 Von 47-30-5173UR CHEST 2 VEXAM: XR CHEST 2 V HISTORY: Abnormal chest [...] Electronically authenticated by: GONZALO MEDELLIN Date: 2022-04-16 16:35[facility] ACOG PANEL 2: 21 to 29on 03-05-2022..NormalThe [facility] For RehabilitationComment on above:Performed By: #### [id number] #### [facility] [address] [place] [address] Dr. Nichelle JohnAge Gdln ACOG Xmnluhc83-58Mgb[address]Wilson [address] HospitalComment on above:Performed By: #### [id number] #### [facility] [address] [place] [address] Dr. Nichelle JohnDIAGNOSIS:CommentNormMercy HealthComment on above: Result Comment: NEGATIVE FOR INTRAEPITHELIAL LESION OR MALIGNANCY.Performed By: #### [id number] #### [facility] [address] [place] [address] Dr. Nichelle JohnMethodology:CommentNormMercy HealthComment on above: Result Comment: This liquid based ThinPrep(R) pap test was screened with the use of an image guided system.Performed By: #### [id number] #### [place] [address] Dr. Nichelle JohnNote:CommentKettering Health Washington Township on above:Result Comment: The Pap smear is a screening test designed to aid in the detection of premalignant and malignant conditions of the uterine cervix. It is not a diagnostic procedure and should not be used as the sole means of detecting cervical cancer. Both false-positive and false-negative reports do occur. .Performed By: #### [id number] #### [place] [address] Dr[address] Nichelle JohnPerformed by:CommentKettering Health Washington Township on above: Result Comment: Elizabeth Rolon, Explosive Ordnance Technician (ASCP)Performed By: #### [id number] #### [place] [address] Dr[address] Nichelle JohnReflex Criteria:[facility] on above:Result Comment: The HPV DNA reflex criteria were not met with this specimen result therefore, no HPV testing was performed. .Performed By: #### [id number] #### [place] [address] Dr[address] Nichelle JohnSpecimen adequacy:[facility] on above:Result Comment: Satisfactory for evaluation. Endocervical and/or squamous metaplastic cells (endocervical component) are present.Performed By: #### [id number] #### [place] [address] Dr[address] Nichelle JohnKlrxwMNXQA-6-KNFGAYAXUAI DNA ANALYSISon 07-25-2972RDB, DNA Analysis [facility] on above:Result Comment: Result: c.1096 G>A (p.Svk185Eti), Z allele - Not detected c.863 A>T (p.Cue598Rdx), S allele - Not detected Not associated with increased risk of developing clinically relevant symptoms of alpha-1 antitrypsin deficiency. See Additional Clinical Information and Comments.Performed By: #### ALPHGEN #### [facility] [address] [place] [address] Dr. Nichelle JohnAdditional Information:CommentMercy HospitalComment on above:Result Comment: Additional Clinical Information: Alpha-1 antitrypsin deficiency is an [...] health care providers to discuss results at [phone] (0958). . Test Details: Two variants analyzed: c.1096 G>A (p.Aip239Gef), commonly referred to as the Z allele or PI*Z c.863 A>T (p.Yim718Ege), commonly referred to as the S allele [...] developed and its performance characteristics determined by [employer]. It has not been cleared or approved by the Food and Drug Administration. . References: Princess RA, Abby G, Kamini ML, Aramis M, Yusuf CE, K, Nany DK, Joellen SL, Shellie JM, Tiffanie MESSINA, Mellissa C, Cody J. The Diagnosis and Management of Alpha-1 Antitrypsin Deficiency in the Adult. Chronic Obstr Pulm Dis. 2016 Dec 01;3(3):668-682. doi: 10.67959/jcopdf.3..2014.0182. PMID: 56753436; PMCID: VIX4924489. Tiffanie MESSINA, Laura Weinstein, Darline GALLOWAY. Alpha-1 Antitrypsin Deficiency. 2005Apr 23 [Updated 2019November 15]. In: Cleve MP, She HH, Mabel RA, et al., editors. Deric(R) [Internet]. [place] ([place]): [facility]; 3348-2606. Available from: https://www.ncbi.nlm.nih.gov/books/PKF3645/Performed By: #### ALPHGEN #### [facility] [address] [place] [address] Dr. Steward ChangElectronically Signed ByComDiley Ridge Medical CenterComment on above:Result Comment: Severo Duarte, Ph.D., FACMGPerformed By: #### ALPHGEN #### [facility] [address] [place] [address] Dr. Nichelle Silver AUTO DIFFon 01-45-8351AIGZ #0.1 103/ulNormal0.0-0.1The [facility] For RehabilitationComment on above:Performed By: #### CBC #### [facility] [address] [place] [address] Dr. Nichelle JohnBasophils/100 WBC (Bld)0.6 %Normal0.2-2.0[facility] Comment on above:Performed By: #### CBC #### [facility] [address] [place] [address] Dr. Nichelle Salazar #0.1 103/ulNormal0.0-0.7The [facility] For RehabilitationComment on above: Performed By: #### CBC #### [facility] [address] [address] [address] Nichelle Raeosinophils/100 WBC (Bld)1.3 %Normal0.9-7.0The [facility] Comment on above:Performed By: #### CBC #### [facility] [address] [place] [address] Dr. Nichelle Raerythrocyte distribution width (RBC) [Ratio]12.9 %Pokowo65.0-15.0 The [facility] For RehabilitationComment on above:Performed By: #### CBC #### [facility] [address] [place] [address] Dr. Nichelle JohnHematocrit (Bld) [Volume fraction]39.5 %Pmbxfx17.0-48.0The [facility] For RehabilitationComment on above:Performed By: #### CBC #### [facility] [address] [place] [address] Dr. Nichelle JohnHemoglobin (Bld) [Mass/Vol]13.3 g/uKOjkojl15.0-16.0The [facility] For RehabilitationComment on above:Performed By: #### CBC #### [facility] [address] [place] [address] Dr. Nichelle Cali #0.02 10e3/ulNormal0.00-0.03The [facility] Systemment on above:Performed By: #### CBC #### [facility] [address] [place] [address] Dr. Nichelle Cali %0.2 %Normal0.0-0.5The [facility] For RehabilitationComment on above: Performed By: #### CBC #### [facility] [address] [place] [address] Dr. Nichelle Wolff #2.7 103/ulNormal1.2-3.8The [facility] RehabilitationComasc[facility] on above:Performed By: #### CBC #### [facility] [address] [place] [address] Dr. Nichelle Torresmphocytes/100 WBC (Bld)27.3 %Sxkzyq92.5-60.0The [facility] Systemment on above:Performed By: #### CBC #### [facility] [address] [address] [address] Nichelle Ramirez DIFF REQNONormalThe [facility] Health Systemment on above: Performed By: #### CBC #### [facility] [address] [address] [address] Nichelle Andrade (RBC) [Entitic mass]31.2 zgNeyvqx49.7-34.0The [facility] For RehabilitationComment on above:Performed By: #### CBC #### [facility] [address] [address] [address] Nichelle Andrade (RBC) [Mass/Vol]33.7 g/uMThfztu75.9-35.2The [facility] Systemment on above:Performed By: #### CBC #### [facility] [address] [place] [address] Dr. Nichelle Andrade (RBC) [Entitic vol]92.7 bJUwtnck42.0-99.0The [facility] System[facility] on above:Performed By: #### CBC #### [facility] [address] [place] [address] Dr. Nichelle Bond #0.6 103/ulNormal0.3-0.8The [facility] Systemment on above:Performed By: #### CBC #### [facility] [address] [place] [address] Dr. Nichelle Gonsalesocytes/100 WBC (Bld)6.1 %Normal1.7-12.0The [facility] Comment on above:Performed By: #### CBC #### [facility] [address] [address] [address] Nichelle Thacker #6.4 103/ulNormal1.4-6.5The [facility] on above:Performed By: #### CBC #### [facility] [address] [place] [address] Dr. Nichelle Lopezutrophils/100 WBC (Bld)64.5 %Jqwtzk11.0-75.0The [facility]amaria HospitalComment on above:Performed By: #### CBC #### [facility] [address] [address] [address] Nichelle Ureña mean volume (Bld) [Entitic vol]9.1 fLCritically low 9.5-13.5The [facility] For RehabilitationComment on above:Performed By: #### CBC #### [facility] [address] [address] [address] Nichelle JohnPLT346 103/slFdqkwt026-959Wxt [facility] For RehabilitationComment on above: Performed By: #### CBC #### [facility] [address] [address] [address] Nichelle JohnRBC4.26 106/ulNormal4.20-5.40The [facility] For RehabilitationComment on above:Performed By: #### CBC #### [facility] [address] [address] [address] Nichelle JohnWBC9.9 103/ulNormal4.0-11.0The [facility] For RehabilitationComment on above: Performed By: #### CBC #### [facility] [address] [address] [address] Nichelle JohnAmbulatory Clinical Summaryon 69-06-1271Zkppyopvkx Clinical Summary{4z-18-13-39-78-70-15-k8-01-15-y2-82-80-ba-4f-cb}CD:801341QzhxbbHeloreChillicothe VA Medical CenterAmbulatory Clinical Summary {69-oo-91-78-65-11-14-19-94-tb-fv-53-24-9b-4f-a5}CD:374075FmblonTiozesChillicothe VA Medical CenterFawestborough behavioral healthcare hospital Medicine Video Visit - Telehealthon 62-01-0453Vzbbup Medicine Video Visit - TelehealthChi Complaint Insole Beveler presents for poss pnemonia HPI Staff Mauro [...] or Covid exposure. Patient recently traveled to [place]. Patient denies nasal symptoms or sore throat. Patient states she has a history of pneumonia. No itke-mby-gkzzkpu treatments used. Review of Systems Fatigue: no [...] interactive video communications from my office using [employer] due to the restrictions of the COVID-19 pandemic. No physical exam was conducted other than those areas of the body visible to telecommunications with the patient located at [address] [place] [address] [phone], with no one else in attendance. If [...] and listen to her lungs. Patient left parkinglot approximately 10 to 15 minutes ago. Patient states that she knows it is pneumonia and she gets this frequently. States nothing desh-skf-aerdkad will help. Discussed in order to differentiate [...] Ordered: TELEHEALTH Office Visit Level 2 New [address]20 2. Shortness of breath (R06.02: Shortness of breath) see above plan Ordered: TELEHEALTH Office Visit Level 2 New [address]12 3. BMI 29.0-29.9,adult (Z68.29: Body mass index [BMI] 29.0-29.9, adult) The standard range for ages 18 and older is >=18.5 and < 25 kg/m2. Your BMI today was above this range, this falls in the overweight to obese category and there are medical benefits to weight loss. We can offer counselling, referral, and/or medical support in addressing this problem. Your BMIand weight management will be followed at subsequent visits. Ordered: Body Mass Index (BMI) documented 3008F TELEHEALTH Office Visit Level 2 New 62219 4. Cigarette nicotine dependence (F17.210: Nicotine dependence, [...] Visit Level 2 N (more content not included)...NormalFisher Jose Elias Medical CenterComment on above:Result Comment: Electronically Signed By: Esmer THOMAS CNP.siri\Date and Time Signed: 02/11/21 11:17 EDTPatient Educationon 86-98-2498Xebwcqa EducationSmoking Cessation Quitting smoking is important to your [...] all cigarettes, ashtrays, matches, and lighters in yourhome, car, or work. Do not let people [...] a walk, or occupy your time with atask. ? Change your normal routine. Take a [...] to your body without the negative effects andrisks of smoking. Nicotine replacement therapy includes nicotine gum, lozenges, inhalers, nasal sprays, and skin patches. Some may be available wqqd-lzr-ujdmgrp and others require a prescription. ? Antidepressant medicine helps people abstain from smoking, but how this works is unknown. This medicine is available by prescription. ? Nicotinic receptor partial agonist medicine simulates the effect of nicotine in your brain. This medicine is available by (more content not included)... [facility] Vital Signs Date TimeVital SignValuePerforming QokegzcitPaapaxwy93-09-0247 15:22-0400Body mass index (BMI) [Ratio]35.91 kg/t2Qpaue Grace DO Work Phone: [phone] CareHvpxadcygy61-70-4304 15:22-0400Body .93 kgCorey Grace DO Work Phone: [phone] CareIqcnrpsuqs29-53-0539 15:22-0400Diastolic blood uguoqqml58 mm[Hg]Nicolasa Grace DO Work Phone: [phone] CareBylsrcbrbb26-10-0811 15:22-0400Systolic blood bepggzxd607 mm[Hg]Nicolasa Grace DO Work Phone: [phone] CareWfkdaxqnef50-26-8936 15:33-0400Body qsimcc315.3 cmCorey Grace DO Work Phone: [phone] CareEkzbvhxkti29-47-7224 15:33-0400Body mass index (BMI) [Ratio]35.74 kg/c6Evjby Grace DO Work Phone: [phone] CareTekgorjelg47-10-4287 15:33-0400Body wfugca40.56 kgCorey Grace DO Work Phone: [phone] CareUifwavbncb38-20-4845 15:33-0400Diastolic blood dvyioebk90 mm[Hg]Nicolasa Grace DO Work Phone: [facility] CareSqylqcmyfg39-10-8040 15:33-0400Systolic blood kcilhuym951 mm[Hg]Nicolasa Grace DO Work Phone: [facility] CareYinoifgxua11-14-5374 11:55-0500Diastolic blood gykuvhev10 mm[Hg]DO Jose Luis Lion Work Phone: [phone]11-21-2023 11:55-0500 Heart rate80 /Yasmin Lion Work Phone: [phone]11-21-2023 11:55-0500 Respiratory rate16 /minDJuventino Lion Work Phone: [phone] [place], [place] 5538111-21-2023 11:55-0500 SaO2% (BldA) [Mass fraction]95 %DO Jose Luis Lion Work Phone: [phone]11-21-2023 11:55-0500 Systolic blood nelzqjws216 mm[Hg]DO Jose Luis Lion Work Phone: [phone] [place], [place] 5538111-21-2023 09:57-0500 Body euyost563.32 cmDO Jose Luis [employer] Work Phone: [phone] [place], [place] 5538111-21-2023 09:57-0500 Body kbukrruiyaq81 [degF]DO Jose Luis Lion Work Phone: [phone] [place], [place] 5538111-21-2023 09:57-0500 Body mbmbwe72.13 kgDO Jose Luis [employer] Work Phone: [phone] [place] [address] Encounters Encounter DateEncounter TypeCare ProviderFacilityStart: 45-86-6708nhpnaeycsz JOSE LUIS P HOUSEFacility:[facility] ClinicStart: 04-12-2025 End: 03-57-1403aoqukzctiaDXHOMZW P HOUSEFacility:[facility] ClinicStart: 03-12-2025 End: 27-76-3537Dxvbmej encounter procedureCorey Grace DO Work Phone: [facility] Work Phone: Start: 03-12-2025 End: 32-69-6337Byuyouas preventive med est patient 18-39 yrsCorey Grace DO Work Phone: [facility] OBGYNComment on above:Well woman exam with routine gynecological examStart: 03-12-2025 End: 50-29-5261jfpkllhollNFNTB FAZIONot AvailableStart: 03-12-2025 End: 87-38-2336Pkgxni flowsheetCorey Grace DO Work Phone: [facility] OBGYNStart: 03-12-2025 End: 85-92-2010Fnchsa flowsheetCorey Grace DO Work Phone: [facility] OBGYNStart: 03-12-2025 End: 83-55-0258Cwpbinhkt Result EncounterCorey Grace DO Work Phone: [facility] External Department UnsolicitedStart: 02-08-2025 End: 82-78-2676gizizlqvydAQYLVOL P HOUSEFacility:[facility] ClinicStart: 01-09-2025 ambulatoryCHARLES P HOUSEFacility:[facility] ClinicStart: 08-22-2024 End: 73-43-0225gfpfyrskrcIbjeui P JacksonFacility:[facility] CTRStart: 06-15-2024 End: 96-76-1358yyidkljdepNS CHARLES P HOUSEFacility:[facility] ClinicStart: 05-08-2024 End: 98-47-1739vbkfysmbznZY CHARLES P HOUSEFacility:[facility] ClinicStart: 03-22-2024 End: 82-21-6582Ucuqpgcmf Result EncounterAmy Juan BENNETT Work Phone: [facility] External Department UnsolicitedStart: 03-22-2024 End: 76-05-4880Llkscfngj Result EncounterAmy Juan BENNETT Work Phone: n[facility] External Department UnsolicitedStart: 03-11-2024 End: 89-56-8925Zxktdpggt Result EncounterAmy Juan BENNETT Work Phone: [facility] External Department UnsolicitedStart: 03-11-2024 End: 19-48-4417Xsrwzdhhj Result EncounterAmy Juan BENNETT Work Phone: n[facility] External Department UnsolicitedStart: 03-08-2024 End: 99-02-3184Yrayfrr encounter procedureCorey Grace DO Work Phone: noms HealthcareStart: 03-08-2024 End: 16-34-5690Xrnydvyp preventive med est patient 18-39 yrsCorey Grace DO Work Phone: [facility] BCP OBComment on above:Well woman exam with routine gynecological examStart: 03-08-2024 End: 28-99-5503Oxginf flowsheetCorey Grace DO Work Phone: [facility] BCP OBStart: 03-08-2024 End: 86-08-6341Zxilcvxhy Result EncounterCorey Grace DO Work Phone: [facility] External Department UnsolicitedStart: 03-08-2024 End: 91-60-5655Aetzjllyv Result EncounterCorey Grace DO Work Phone: [facility] External Department UnsolicitedStart: 05-18-2023 End: 31-65-5596rkndesoomrBxhrzuy HouseFacility:[facility] Start: 05-18-2023 End: 37-97-9595Daiihrpcy to same day surgery [facility] Work Phone: [facility] Work Phone: Start: 05-18-2023 End: 94-75-0056exasbgkbasZO Jose Luis Lynden Work Phone: [facility] Work Phone: Start: 04-16-2022 End: 23-11-6724fswqoaxmewKW CHARLES HOUSEFacility:F5Vtfqs: 02-25-2022 End: 14-48-7319wyambfougeUD CHARLES HOUSEFacility:J7Rnoje: 02-05-2022 End: 36-23-4270qopehiarzlCY CHARLES HOUSEFacility:X0Motnr: 01-06-2022 End: 99-04-8555spixmmcwxuSH CHARLES HOUSEFacility:K6Zgyhf: 01-05-2022 End: 10-68-9487cymllndqusFN CHARLES HOUSEFacility:H1 Procedures DateProcedureProcedure DetailPerforming ClinicianStart: 39-68-1554YUU,APTIMA HPV,AGE GDLNCorey Grace DO Work Phone: Start: 56-21-6361DK PELVIS W/ TRANSVAGINALAmy Juan BENNETT Work Phone: Start: 00-55-7797RGA CBC WITH AUTO DIFFAmy Juan BENNETT Work Phone: Start: 75-63-8786FRC,APTIMA HPV,AGE GDLNCorey Grace DO Work Phone: Start: 39-64-7383UxcsmsrxpvsZR Jose Luis Lynden Work Phone: Plan of Treatment DateCare ActivityDetailAuthorStart: 03-19-2026 End: 47-02-7197Ulfmwkf encounter roohfbvxt79/22/2026 2:00 PM EDT Procedure Visit BELA DOWLINGN [address] [place] [address] Nicolasa Edwards, DO [address] [place] [address] [facility] [place] OBGYNStart: 03-12-2025 End: 75-62-7618Ohitfec encounter procedureNOMS [facility] OBComment on above:Arrived Start: 03-22-2024 End: 08-20-4242Bnqcbjkkyydi / ancillary services lywwzyqdzj55/25/2024 11:00 AM EDT Ancillary Procedure [facility] OB [address] [place], [place] [address] [facility] BCP OBStart: 03-08-2024 End: 77-17-7180Qkhizrc encounter lpmfpordd46/11/2024 3:00 PM EDT Office Visit [facility] [address] [place] [address] Nicolasa Edwards, DO [address], [place] [address] ArrivedNOMS [facility] OBComment on above:ArrivedStart: 01-61-5990RebatmsbnMarion HospitalCytology Cervical or vaginal smear or scraping studyPap Smear Pathology and Cytology Routine Well woman exam with routine gynecological exam Ordered: 03/08/2024[facility] Work Phone: comment on above:Ordered: 03/08/2024Human papilloma virus DNA [Presence] in Unspecified specimen by Probe with amplificationHPV DNA probe, amplified Microbiology Routine Well woman exam with routine gynecological exam Ordered: 03/08/2024[facility] HealthcareComment on above:Ordered: 03/08/2024 Patient EducationColon Polypectomy (DC)[facility] Work Phone: Payers DatePayer CategoryPayerPolicy [id number] [id number] 21-59-6898Syxymxo Health [id number] 59-62-8981Uvaeayj Health [id number] Health Insurance [id number]-[id number] [id number] 2..840.1.331277.3.57[id number] 2.840.1.594628.3.57[id number] 2.840.1.219991.3.57[id number] 2.16.840.1.298056.3.57[id number] 2.840.1.013647.3.57[id number] 2.840.1.881538.3.57[id number] 2.840.1.407532.3.57[id number] 2.840.1.114685.3.57[id number] 2.0.1.916742.3.57[id number] 2.0.1.620292.3.57[id number] 2.840.1.164257.3.57[id number] 2.0.1.780992.3.57[id number] 2.0.1.625846.3.579.2.718 [id number] [id number] 2.840.1.670255.3.579.2.531 Social History DateTypeDetailFacilityStart: 40-51-1272Mdpzgrn smoking status NHISSmoker (finding)[facility] Hospitaltart: 37-73-8484Qlw Assigned At FemaleFirUniversity Hospitals Geauga Medical Centertart: 32-73-4912Egmenxx smoking status NHISEx-smokerNOIL HealthcareHistory of tobacco useCigarette SmokerMOUNTAIN POINT [facility] HealthcareStart: 59-83-3871Puclvtl use and exposureSmokeless tobacco non-user [facility] HealthcareStart: 96-97-6644Idwxlqulh beverage intakeEx-drinker (finding) [facility] HealthcareStart: 45-44-2251Blkurxh of Social functionNOIL HealthcareStart: 23-32-8315Brxifgc use panelMOUNTAIN POINT MEDICAL CENTER HealthcareStart: 42-89-9289Ieuavjf Comment1-2 times per weekMOUNTAIN POINT [facility]ICAL [facility]ENTER HealthcareStart: 02-67-3749Hpw assigned at birthNot on file [facility] HealthcareStart: 89-33-3065Zvynqpxjp beverage intakeCurrent drinker of alcohol (finding)[facility] HealthcareStart: 03-74-9253FuuUlnmexBZWA Healthcare Goals DatePatient GoalDesired Activity/State History of Present illness Narrative 03-12-2025 Note Date & EozhJymtSfgtqdso73-85-9925 History of Present illness Narrative* Donna Painting, DISPATCHER [employer] - 03/12/2025 3:00 PM EDT Reason for Appointment: Patient ID: Mauro Damon [...] HISTORY Past Surgical History: Procedure Laterality Date MD REPAIR SLIDING INGUINAL HERNIA 2009 REVIEW OF [...] nursing note reviewed. Exam conducted with a game designer/creative director present. Vitals: Estimated body mass index is [...] of: Nicolasa Edwards DO documented in this encounterNOMS Healthcare History of Present illness Narrative 03-08-2024 Note Date & SucjBeecAiknrvyx98-70-6237 History of Present illness Narrative* SABRINA Jones - 03/08/2024 3:00 PM EDT Reason for Appointment: Patient ID: Mauro Damon is a 33 y.o. female who presents for Well Women Visit Patient presents today for Annual Exam. MEDICATIONS Current Outpatient Medications Medication Instructions esomeprazole (NEXIUM) 40 mg norethindrone-ethinyl estradiol (Alyacen 1) 1-35 MG-MCG tablet 1 tablet, Oral, Daily [...] HISTORY Past Surgical History: Procedure Laterality Date MD REPAIR SLIDING INGUINAL HERNIA 2009 REVIEW OF [...] nursing note reviewed. Exam conducted with a game designer/creative director present. Vitals: Estimated body mass index is [...] of: Nicolasa Edwards DO documented in this encounterMOUNTAIN POINT [facility]ICAL [facility]ENTER Healthcare Procedure note 05-18-2023 Note Date & XlcwWbmfHpbyppun58-16-8972 Procedure noteMarion Hospital Evaluation note Note Date & TypeNoteFacilityEvaluation noteNo assessment information available [facility] Work Phone: Evaluation note Note Date & TypeNoteFacilityEvaluation note* Diagnosis Well woman exam with routine gynecological exam Routine gynecological examination documented in this encounter [facility] Healthcare Evaluation note Note Date & TypeNoteFacilityEvaluation note* Diagnosis Well woman exam with routine gynecological exam Routine gynecological examination documented in this encounter [facility] Healthcare History and physical note Note Date & TypeNoteFacilityHistory and physical note Author Bailee Edwards [facility] May 18, 2023 11:06amNote Date/TimeNov2022 11:06[place] [address] Gastroenterology H&P Signed Patient: Mauro Damon MR#: [id number] : 1990 Acct:[id number] Age/Sex: 32 / F Adm Date: 3 Loc: Room: Type: [facility] Attending Dr: Bailee Edwards MD Copies to: DO Bailee Gonzalez MD~ Date of Service: 05/18/2023 HISTORY & PHYSICAL: Patient's history with special attention to the cardiovascular, pulmonary systems and the current problem was reviewed with the patient immediately prior to the procedure. Present medications and doses reviewed in the EMR. Allergies and pertinent laboratory tests were also re viewedat this time in the EMR. The physical [...] signed by Bailee Edwards MD> 05/18/23 110 [facility] Work Phone: Hospital Discharge instructions Note Date & TypeNoteFacilityHospital Discharge instructions Additional Instructions DISCHARGE INSTRUCTIONS FOR [...] NOT operate machinery such as power tools, [employer] mowers, snow blowers, sewing machines, etc. for [...] pathology -Follow up with PCP. -Office number [phone]. [facility] Work Phone: Summary Purpose Family History No Family History Records Found Relationship Condition Age at Onset Recorded Date/T gely grandparent Diabetes mellitus Unknown fatherDiabetes mellitusUnknown Advance Directives No Advanced Directives Records Found Advance Directive Response Recorded Date/ Time Advance Directives No April 9:30am Chief Complaint and Reason for Visit Chief Complaint colitis Additional Source Comments INFORMATION SOURCE (unrecogn ized section and content) DATE CREATED AUTHOR 03/07/2021 [facility] DATE CREATED AUTHOR AUTHOR'S ORGANIZ ATION 04/24/2022 [facility] DATE CREATED AUTHOR AUTHOR'S ORGANIZ ATION 08/14/2023 [facility] DATE CREATED AUTHOR AUTHOR'S ORGANIZ ATION 03/13/2025 [facility] DATE CREATED AUTHOR AUTHOR'S ORGANIZ ATION 05/07/2025 [facility] Care Teams (unrecognized sec tion and content) Team Status: Active Member Role Status Dates Jose Luis Lion DO Primary Care Provider Active Team Status: Inactive Member Role Status Dates Bailee Edwards MD Attending Provider [facility] Care ProviderActiveTeam MemberRelationshipSpecialty Start DateEnd Date Jose Luis Lion MD [address] [place] [address] PCP - GeneralFamily Medicine03/03/23Team MemberRelationshipSpecialtyStart DateEnd Jose Luis Shaw MD [address] [place] [address] PCP - GeneralFamily Medicine03/03/23Team MemberRelationshipSpecialtyStart DateEnd Jose Luis Shaw MD PCP - GeneralFamily Medicine03/03/23Team MemberRelationshipSpecialtyStart DateEnd Date Jose Luis Lion MD PCP - GeneralFamily Medicine03/03/23Team MemberRelationshipSpecialtyStart DateEnd Jos eLuis Shaw MD PCP - GeneralFamily Medicine03/03/23Team MemberRelationshipSpecialtyStart DateEnd Jose Luis Shaw MD PCP - GeneralFamily Medicine03/03/23 Reason for Visit (unrecogniz ed section and content) ReasonCommentsWell Women Visit FOR RECORDS PERTAINING TO PATIENTS [...] BE BASED ON THE PRIMARY CLINICAL RECORDS. [employer] [facility]. provides no warranty or guarantee of the accuracy or completeness of information in this document.
--- NOTE | 2025-06-04 10:41 | XR_ITS ---
The [address] [address] Patient Name: MAURO DAMON MRN: [id number] date: 1990 Sex: F Assigned Patient Location: [facility] Current Patient Location: [facility] Accession/Order Number: [id number] Exam Date: 06/04/2025 11:08 Report Date: 06/04/2025 11:41 At the request of: CHERYL CURRIE Procedure: XR cervical spine 5V CERVICAL SPINE -6 views: CLINICAL HISTORY: Neck pain for several years radiating between the shoulder blades. No injury. COMPARISON: None TECHNIQUE: AP, lateral, swimmer's, both oblique and odontoid views were obtained. FINDINGS: There is straightening of the normal cervical lordosis. There is no evidence of compression fracture or displacement. The disc spaces are preserved. There is no significant degenerative change. The neuroforamen are patent. The atlantoaxial relationship is maintained. There is no prevertebral soft tissue swelling. XR/XR cervical spine 5V IMPRESSION: NO ACUTE BONY FINDINGS. Impression dictated by: Merced De La Torre M.D. 06/04/2025 11:41 AM Dictation Location: [place] [address] Electronically authenticated by: [id number] Y Date: 06/04/2025 11:41
== END 2025-06-04 10:29 | disposition home or self-care (01) ==
PROVIDERS: PCP Family Medicine; Visit Provider Family Medicine
DX: M54.2 Cervicalgia (principal); E66.9 Obesity, unspecified; G43.909 Migraine, unspecified, not intractable, without status migrainosus
CPT/HCPCS: 72050